=== PATIENT | female | born 1965 | race Caucasian/White ===

== ENCOUNTER → 2023-04-09 08:16 | Outpatient (BNVA) | payer OTHER, SELFPAY | PROVIDERS: PCP Nurse Practitioner Family; Visit Provider Physician Assistant Surgical ==

== ENCOUNTER 2023-06-10 09:58 | Outpatient (AMB) | payer OTHER, SELFPAY ==
--- NOTE | 2023-06-10 09:09 | A.OFFVIS_ITS ---
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 Her goal is to lose weight and achieve a healthy lifestyle as well as to improve, if not resolve, obesity related medical conditions, including rufus, htn, hld. She reports first being concerned about her weight 10-15 years, highest weight to date was 223, lowest was 145 w hypnosis and weight watchers. Weight upon first presentation to the office on 04/09/23 was 221 pounds with a BMI of 36.8. Current weight is 223.5 pounds with a BMI of 37.2. She has tried multiple m ethods of weight loss including fad diets, hypnosis without permanent results. She lives with her . 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 She wakes at:?630 am, and goes to bed at?10 pm. Dinner is at 530 pm. Breakfast: cheerios w 2 % milk, decaf tea w milk AM snack: skip Lunch: grilled chicken w salad on wrap, soup PM snack: benjamin chips, carrots, girl dairy cattle farmer cookies, dried cheerios Dinner: grilled chicken, potatoes, turkey, salad, veg, fish After dinner: skip Other snacks: paski, candy, yogurt, grapes Liquids: 40 oz water, no soda, OJ/cran/cran-grape Alcohol/marijuana/tobacco intake: no etoh, edible cannabis 1-2 x per week, no tobacco Exercise: pelaton bike at home, 2 x per week given recent plantar fasciitis. GERD score: 21 BAL score: 0 ESS score: 12 QOL score: 65 PFSH Surgical History S/P eye surgery S/P hysterectomy S/P section Review of Systems Const All systems reviewed & are unremarkable except as noted in HPI and below Assessment & Plan Assessment & Plan (1) Obesity (BMI 30-39.9): Code(s): E66.9 - Obesity, unspecified Plan: This is a?58 yo female who will start our SWL program to prepare for bariatric surgery.? Blood work, h pylori , CXR, ECG, Abd US and UGI have been ordered. She is being scheduled for RD and BH initial consultations. She will start SWL classes and watch the first three videos before her next appointment. ? Adequate sleep of 7-8 hours per night discussed, awakening at 630 am and going to bed around 10 pm ? Purchase body composition analyzer scale ([employer] recommended) and check weight weekly. The best time to do this is first thing in the morning after going to the bathroom. 1. Nutritional counseling: Be sure to careful read the number of scoops per shake Start with 2 Celebrate Rebuild shakes ([facility], [facility], [email or web address], [employer]), First shake (1.5 scoops in 12 oz unsweetened almond milk) at 730am-930am, Second shake (1 scoop in 10 oz unsweetened almond milk) at 1030am-1230pm 2 protein bars (Celebrate bars at [facility], [facility], [email or web address], [employer]) First bar at 130pm-330pm. Dinner at 530pm (8 forks of protein and 8 forks of salad/vegetables). Meal to include lean meat (beef, fish, pork, turkey, chicken), cooked vegetables or a salad with olive oil and/or fruits (berries, pears, apples, kiwi). Avoid salt, breads, potatoes, rice, pasta, desserts. Another bar at 7pm-9pm. Try to drink 64 oz of water daily and avoid soda and juices. ?2. Each shake would be drunk slowly, like coffee in a period of 2 hours. ?3. Cut each bar in 4 pieces and eat each piece in 30 min ?to make each bar last 2 hours. ?4. I emphasized the importance of measuring accurately the food portion and measure it carefully when serving the food on the plate ?5. The meal portions include 8 full-size forks of meat and 8 full-size forks of salad. You always eat the meat portion but you can replace up to half of the forks of salad/vegetables with rice, potatoes or pasta, or a fruit ?if you like. The less you do it the better weight loss will be. ?6. One full-size fork is what can be scooped on the fork without falling aside and not what can be bit with the fork. Use regular forks like those you find in a typical restaurant. ?7.? Please send me weight measurements as soon as possible and then once a week. Always include your diet and exercise plan. Alternatively come weekly at the office for weight checks and send me the measurements. ?8. Exercise counseling: Begin by watching a stretching for beginners video. Start slowly and begin to stretch your muscles. You should do this before and after each exercise session to prevent injury. Please use your Pelaton stationary bike that you have at home. You may use the fat burn or interval training program and try to achieve 300 calories burned or more per session 7 days per week. Goal of 2000 calories burned or more weekly. There are other exercises you can do using the treadmill, rowing machine or elliptical machine. So if you get access to those or join a gym, let me know and I can give you advice on those activities as well. Tracking calories is essential. 9. Alternatively start walking outside daily, tracking calories with a goal of 300 calories per day, daily. You can download the tonia [employer] which can track your time, distance and calories while walking outside. You press start in the tonia when you start and then stop when you are finished. 10.? It is important to communicate with me by text weekly 11. Please get labs, EKG and chest X-Ray within 1 week. 12. Discussed and answered all questions regarding?obtained consent to participate in the [place] [facility]?Registry. 13. Please follow the diet plan exactly, without any change. If you do not like something about the plan or you feel hungry, you need to communicate with me so I can help you revise the plan. You should not change the plan yourself. Text me at [phone] 14. Goal is to lose at least 12 pounds in the first month 15. Goal is to lose 10% of your weight before surgery, which is about 22 lbs. Ultimate weight goal: 201 lbs before surgery Patient is morbidly obese and is not considered stable at this time.?I spent a total of 70 minutes reviewing/updating records, examining the patient and counseling the patient on weight management as detailed above. Orders: Orders Insulin Today E66.9 - Obesity, unspecified, E78.00 - Pure hypercholesterolemia, unspecified, G47.33 - Obstructive sleep apnea (adult) (pediatric), I10 - Essential (primary) hypertension Hemoglobin A1c Today E66.9 - Obesity, unspecified, E78.00 - Pure hypercholesterolemia, unspecified, G47.33 - Obstructive sleep apnea (adult) (pediatric), I10 - Essential (primary) hypertension H Pylori Breath Test Today E66.9 - Obesity, unspecified, E78.00 - Pure hypercholesterolemia, unspecified, G47.33 - Obstructive sleep apnea (adult) (pediatric), I10 - Essential (primary) hypertension Lipid Panel Today E66.9 - Obesity, unspecified, E78.00 - Pure hypercholesterolemia, unspecified, G47.33 - Obstructive sleep apnea (adult) (pediatric), I10 - Essential (primary) hypertension IRON PROFILE Today E66.9 - Obesity, unspecified, E78.00 - Pure hypercholesterolemia, unspecified, G47.33 - Obstructive sleep apnea (adult) (pediatric), I10 - Essential (primary) hypertension Vitamin B12 and Folate Today E66.9 - Obesity, unspecified, E78.00 - Pure hypercholesterolemia, unspecified, G47.33 - Obstructive sleep apnea (adult) (pediatric), I10 - Essential (primary) hypertension Vitamin B1 Today E66.9 - Obesity, unspecified, E78.00 - Pure hypercholesterolemia, unspecified, G47.33 - Obstructive sleep apnea (adult) (pediatric), I10 - Essential (primary) hypertension TSH reflex Free T4 Today E66.9 - Obesity, unspecified, E78.00 - Pure hypercholesterolemia, unspecified, G47.33 - Obstructive sleep apnea (adult) (pediatric), I10 - Essential (primary) hypertension XR chest 2V Today E66.9 - Obesity, unspecified, E78.00 - Pure hypercholesterolemia, unspecified, G47.33 - Obstructive sleep apnea (adult) (pediatric), I10 - Essential (primary) hypertension ECG 12 lead EKG Today E66.9 - Obesity, unspecified, E78.00 - Pure hyp ercholesterolemia, unspecified, G47.33 - Obstructive sleep apnea (adult) (pediatric), I10 - Essential (primary) hypertension FL upper GI w air Today E66.9 - Obesity, unspecified, E78.00 - Pure hypercholesterolemia, unspecified, G47.33 - Obstructive sleep apnea (adult) (pediatric), I10 - Essential (primary) hypertension Complete Blood Count Auto Diff Today E66.9 - Obesity, unspecified, E78.00 - Pure hypercholesterolemia, unspecified, G47.33 - Obstructive sleep apnea (adult) (pediatric), I10 - Essential (primary) hypertension Comprehensive Met. Panel Today E66.9 - Obesity, unspecified, E78.00 - Pure hypercholesterolemia, unspecified, G47.33 - Obstructive sleep apnea (adult) (pediatric), I10 - Essential (primary) hypertension Zinc Today E66.9 - Obesity, unspecified, E78.00 - Pure hypercholesterolemia, unspecified, G47.33 - Obstructive sleep apnea (adult) (pediatric), I10 - Essential (primary) hypertension C Reactive Protein Today E66.9 - Obesity, unspecified, E78.00 - Pure hypercholesterolemia, unspecified, G47.33 - Obstructive sleep apnea (adult) (ped iatric), I10 - Essential (primary) hypertension Vitamin A Today E66.9 - Obesity, unspecified, E78.00 - Pure hypercholesterolemia, unspecified, G47.33 - Obstructive sleep apnea (adult) (pediatric), I10 - Essential (primary) hypertension Ferritin Today E66.9 - Obesity, unspecified, E78.00 - Pure hypercholesterolemia, unspecified, G47.33 - Obstructive sleep apnea (adult) (pediatric), I10 - Essential (primary) hypertension Vitamin D 25-OH Total Today E66.9 - Obesity, unspecified, E78.00 - Pure hypercholesterolemia, unspecified, G47.33 - Obstructive sleep apnea (adult) (pediatric), I10 - Essential (primary) hypertension US abdomen comp w elastography Today E66.9 - Obesity, unspecified, E78.00 - Pure hypercholesterolemia, unspecified, G47.33 - Obstructive sleep apnea (adult) (pediatric), I10 - Essential (primary) hypertension Referrals Nutrition/Dietitian Referral E66.9 - Obesity, unspecified, E78.00 - Pure hypercholesterolemia, unspecified, G47.33 - Obstructive sleep apnea (adult) (pediatric), I10 - Essential (primary) hypertension Behavioral Health Referral E66.9 - Obesity, unspecified, E78.00 - Pure hypercholesterolemia, unspecified, G47.33 - Obstructive sleep apnea (adult) (pediatric), I10 - Essential (primary) hypertension Telehealth Telehealth Location of provider rendering services: practice address Location of patient: address on file Patient Identification confirmed using: Name, : Yes Telehealth method: voice only Patient verbally consented to treatment: Yes Patient verbally consented to billing insurance company: Yes Patient informed of any privacy concerns related to visit: Yes Minutes spent on Phone/Video with Pt.: 55 Coding Level of Care Code New Pt Level 5 (46745) Diagnoses Obesity (BMI 30-39.9) E66.9 Time Spent (min) 70
[2023-06-10 09:12] VITALS: BMI 37.2
== END 2023-06-10 10:42 | disposition home or self-care (01) ==
LOC: HO.HBS 09:58
PROVIDERS: PCP Nurse Practitioner Family; Visit Provider Physician Assistant Surgical
DX: E66.9 Obesity, unspecified (principal); Z68.37 Body mass index [BMI] 37.0-37.9, adult
CPT/HCPCS: 99443

== ENCOUNTER → 2023-06-10 09:58 | Outpatient (BNVA) | payer OTHER, SELFPAY | PROVIDERS: PCP Nurse Practitioner Family; Visit Provider Physician Assistant Surgical | DX: E66.9 Obesity, unspecified (principal); G47.33 Obstructive sleep apnea (adult) (pediatric); I10 Essential (primary) hypertension; E78.00 Pure hypercholesterolemia, unspecified ==

== ENCOUNTER 2023-06-11 06:40 | Outpatient (REF) | payer OTHER, SELFPAY ==
--- NOTE | ~2023-06-11 | XR_ITS ---
EXAMINATION: XR CHEST 2 VIEWS CLINICAL INFORMATION: Obesity. COMPARISON: None. TECHNIQUE: Frontal and lateral views of the chest were obtained. FINDINGS: The heart, great vessels, pulmonary vasculature and mediastinum are normal. The lungs show no focal infiltrate, effusion or pneumothorax. There is no acute osseous abnormality. XR/XR chest 2V IMPRESSION: No active cardiopulmonary disease.
[2023-06-11 07:00] LABS: MANUAL DIFF FLAG NO
--- NOTE | 2023-06-11 07:38 | ECG_ITS ---
Test Reason : e66.9 Blood Pressure : / mmHG Vent. Rate : 074 BPM Atrial Rate : 074 BPM P-R Int : 140 ms QRS Dur : 076 ms QT Int : 376 ms P-R-T Axes : -05 -11 -07 degrees QTc Int : 417 ms Normal sinus rhythm cannot exclude old Inferior infarct , age undetermined Abnormal ECG No previous ECGs available Referred By: Gerber Lyman Electronically Signed By:ZOYA VALENTINE
[2023-06-11 07:40] LABS: Basophils Percent Auto 0.4 % (0-2); Eosinophils Absolute Auto 0.1 X10*3/uL (0.0-0.4); Eosinophils Percent Auto 1.9 % (0-4); Hematocrit 44.5 % (37.0-47.0); Hemoglobin 14.7 g/dl (12.0-16.0); Imm Gran Abs Auto 0.04 X10*3/uL (0.00-0.03); Imm Gran Pct Auto 0.6 % (0.0-0.4); Lymphocytes Absolute Auto 2.7 X10*3/uL (1.2-4.9); Lymphocytes Percent Auto 38.3 % (20-40); Mean Corpuscular Hemoglobin 29.6 pg (27.0-33.0); Mean Corpuscular Volume 89.5 fL (80.0-98.0); Mean Platelet Volume 9.5 fL (9.4-12.3); Monocytes Absolute Auto 0.6 X10*3/uL (0.1-1.2); Monocytes Percent Auto 8.5 % (2-11); Neutrophils Absolute Auto 3.5 x10*3/uL (2.0-8.3); Neutrophils Percent Auto 50.3 % (45-73); Platelet Count 300 X10*3/uL (160-400); Red Blood Count 4.97 X10*6/uL (4.20-5.50); Red Cell Distribution Width 12.5 % (11.0-16.0); White Blood Count 6.9 X10*3/uL (4.8-10.8)
[2023-06-11 07:54] LABS: Estimated Average Glucose 111 mg/dL; Hemoglobin A1c % 5.5 % (<6.0)
[2023-06-11 08:04] LABS: Alanine Aminotransferase 99 U/L (0-31); Albumin Level 4.4 g/dL (3.5-5.0); Alkaline Phosphatase 115 U/L (39-117); Anion Gap 11 (12-20); Aspartate Amino Transferase 40 U/L (5-31); Bilirubin Total 0.8 mg/dL (0.0-1.0); Blood Urea Nitrogen 24 mg/dL (9-16); C Reactive Protein 0.41 mg/dL (< or = 0.50); Carbon Dioxide 31 mmol/L (22-29); Chloride 104 mmol/L (96-108); Cholesterol 187 mg/dL (<200); Estimated Glomerular Filt Rate > 60; Glucose Random 96 mg/dL (60-115); HDL Cholesterol 56 mg/dL (>40); Iron 88 mcg/dL (30-160); LDL Cholesterol Calculated 106 mg/dL (<100); Percent Iron Saturation 30 % (15-50); Potassium 3.9 mmol/L (3.3-5.1); Sodium 142 mmol/L (135-145); Total Iron Binding Capacity 296 mcg/dL (228-428); Total Protein 6.9 g/dL (6.5-8.0); Triglycerides 129 mg/dL (<150); Unsaturated Iron Binding 208 ug/dL
[2023-06-11 08:24] LABS: Ferritin 80 ng/mL (10-250); Insulin 9 uU/mL (2-29); TSH reflex Free T4 1.94 uIU/mL (0.32-4.0); Vitamin D 25-OH Total 28.1 ng/mL (>30)
[2023-06-11 09:07] LABS: Folate 8.9 ng/mL (> or = 4.0)
[2023-06-11 16:02] LABS: Vitamin B12 389 pg/mL (200-900)
[2023-06-13 13:59] LABS: Zinc 78 mcg/dL (60-130)
[2023-06-16 14:59] LABS: Vitamin B1 13 nmol/L (8-30)
[2023-06-17 02:09] LABS: Vitamin A 70 mcg/dL (38-98)
== END 2023-06-11 06:41 | disposition home or self-care (01) ==
LOC: HO.XRAY 06:40
PROVIDERS: PCP Nurse Practitioner Family; Visit Provider Physician Assistant Surgical
DX: E66.9 Obesity, unspecified (principal); G47.33 Obstructive sleep apnea (adult) (pediatric); E78.00 Pure hypercholesterolemia, unspecified; I10 Essential (primary) hypertension
CPT/HCPCS: 36415; 71046; 80053; 80061; 82306; 82607; 82728; 82746; 83036; 83525; 83540; 84425; 84443; 84590; 84630; 85025; 86140; 93005

== ENCOUNTER → 2023-06-11 07:38 | Outpatient (BNV) | payer OTHER, SELFPAY | PROVIDERS: PCP Nurse Practitioner Family; Visit Provider Internal Medicine | DX: R94.31 Abnormal electrocardiogram [ECG] [EKG] (principal) | CPT/HCPCS: 93010 ==

== ENCOUNTER 2023-06-23 | Outpatient (REF) | payer OTHER, SELFPAY ==
[2023-06-29 14:28] LABS: H Pylori Breath Test Negative (Negative)
== END 2023-06-23 00:01 | disposition home or self-care (01) ==
LOC: HO.LNP
PROVIDERS: Visit Provider Physician Assistant Surgical
DX: E66.9 Obesity, unspecified (principal); I10 Essential (primary) hypertension
CPT/HCPCS: 83013

== ENCOUNTER 2023-06-23 08:24 | Outpatient (AMB) | payer OTHER, SELFPAY ==
--- NOTE | 2023-06-23 08:32 | MHC.AMNUTRGE ---
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 Exercise: has been intentionally limiting it since getting her EKG back abnormal. Is still going for gentle walks and trying to stay active Is getting a liver ultrasound through [facility] tomorrow . [facility] online classes: completed, scored well Dietary counseling reduction Who buys your food self Who prepares/cooks your food self Meal frequency regular: breakfast (cheerios w 2% milk; fruit), lunch (sandwich, natasha bread, deli meat low sodium, low salt lays chips), dinner (grilled chicken, fish, shrimp ) and snacks (fruit) Lifestyle Exercise Yes Food frequency Dairy: daily, Fruit: daily, Vegetables: daily, Grains/pasta/breads/cereal (carbs): daily, Meats/poultry/fish (protein): daily, Meat substitutes/nuts/seeds/legumes: daily, Water: daily, Soda: never, Juice: never and Coffee: several times weekly (decaf coffee, or decaf tea ) Diagnosis Nutrition problem #1 overweight/obesity As related to (etiology) #1 excess energy intake and physical inactivity As evidenced by (sign/symptom) #1 high BMI Monitoring/Goals Nutrition problem monitoring total energy intake, level of knowledge/skill, total PRO intake, total CHO intake and weight Outcome progress progressing Learning/Education Readiness to learn excellent Stages of change action Educational materials provided Yes Most Recent Diabetes Results: Cholesterol 187 mg/dL (<200) 06/11/23 HDL Cholesterol 56 mg/dL (>40) 06/11/23 Triglycerides 129 mg/dL (<150) 06/11/23 Creatinine 0.85 mg/dL (0.5-1.4) 06/11/23 Blood Urea Nitrogen 24 mg/dL (9-16) H 06/11/23 Sodium 142 mmol/L (135-145) 06/11/23 Potassium 3.9 mmol/L (3.3-5.1) 06/11/23 Chloride 104 mmol/L (96-108) 06/11/23 Carbon Dioxide 31 mmol/L (22-29) H 06/11/23 Calcium 10.0 mg/dL (8.4-10.2) 06/11/23 AST 40 U/L (5-31) H 06/11/23 ALT 99 U/L (0-31) H 06/11/23 Total Protein 6.9 g/dL (6.5-8.0) 06/11/23 Albumin 4.4 g/dL (3.5-5.0) 06/11/23 [facility] Surgical History S/P eye surgery S/P hysterectomy S/P section Assessment & Plan Assessment & Plan (1) Obesity (BMI 30-39.9): Code(s): E66.9 - Obesity, unspecified Plan Patient is cleared from a nutrition standpoint for bariatric surgery. Educational requirements have been completed. Reviewed vitamin supplementation and commitment to protein shake for several months post surgery. Encouraged communication with office as needed. recommend increase protein based on todays body composition reading She will discuss ultrasound at [facility] with PA and aspirin use post op. Coding Level of Care Code Nutr Indiv Intake (92190) Diagnoses Obesity (BMI 30-39.9) E66.9 Time Spent (min) 45
[2023-06-23 09:13] VITALS: BMI 35.4
== END 2023-06-23 09:16 | disposition home or self-care (01) ==
PROVIDERS: PCP Nurse Practitioner Family; Visit Provider Dietitian, Registered
DX: E66.9 Obesity, unspecified (principal)

== ENCOUNTER → 2023-06-23 08:24 | Outpatient (BNVA) | payer OTHER, SELFPAY | PROVIDERS: PCP Nurse Practitioner Family; Visit Provider Dietitian, Registered | DX: E66.9 Obesity, unspecified (principal); Z68.35 Body mass index [BMI] 35.0-35.9, adult; Z71.3 Dietary counseling and surveillance; Z11.0 Encounter for screening for intestinal infectious diseases | CPT/HCPCS: 97802; 99211 ==

== ENCOUNTER 2023-07-07 08:23 | Outpatient (AMB) | payer OTHER, SELFPAY ==
--- NOTE | 2023-07-07 08:25 | A.OFFVIS_ITS ---
Intake VS Expanded 07/07/23 08:32 BP 151/73 H Blood Pressure Location Rt brachial Blood Pressure Position Sitting Pulse 70 Pulse Source Pulse Oximeter Temp 96.6 F L Temperature Source Tympanic Pulse Oximetry 98 Oxygen Delivery Method Room Air Height 5 ft 5 in Weight 207 lb 12.8 oz BMI 34.6 Body Fat % 42.0 Body Fat Mass 87.4 Fat Free Mass 120.4 Visceral Fat Rating 12.0 Body Water % 41.1 Body Water Mass 85.4 Muscle Mass/Score 114.2 Basal Metabolic Rate/Score 1,661 Intake Visit Reasons: (OV) F/U SWL Provider Relations Rep Required: No Allergies environmental allergies Allergy (Verified 07/07/23 08:34) Nasal congestion Medication List - Last Reconciled 07/07/23 by YAYA Phan aspirin (Adult Aspirin Regimen) 81 mg PO DAILY atorvastatin 10 mg PO DAILY cholecalciferol (vitamin D3) 125 mcg PO DAILY 90 days cyanocobalamin (vitamin B-12) 500 mcg PO DAILY 90 days hydrochlorothiazide 25 mg PO DAILY omeprazole magnesium (Prilosec OTC) 20 mg PO DAILY HPI HPI Comments History of Present Illness Details The patient is a pleasant 58 year old female who returns to the clinic for pre-operative surgical weight loss management. They were last seen in the office on 06/10/2023 for her 1st visit, recorded weight at that time was 223. pounds, with a BMI of 37.2. Today's weight is 207.8 pounds and BMI is 34.6. There has been a weight loss of 13.2 pounds since initiating the surgical weight loss program on 04/09/23 with a total body weight loss of 5.9 %. Pre op work up completed as follows: SWL classes:? 11/19 BH appts: 07/14/23 ? ? RD appts: Cleared-06/23/2023 Labs: 06/11/2023-low D H. pylori: 06/23/2023-negative CXR: 06/11/2023-negative EK06/11/2023-can not exclude old infarct, stress test ordered 06/11/23 scheduled for 07/09/23 ABD U/S: 06/24/2023-fatty liver UGI: 08/08/23 The patient reports she is feeling well. The patient does have a body composition scale. They also have been communicating weekly. Current meal plan includes: 2 Celebrate Rebuild shakes ([facility] [email or web address], [employer]), First shake (1 scoop in 12 oz unsweetened almond milk) at 730am-930am, Second shake (1 scoop in 10 oz unsweetened almond milk) at 1030am-1230pm 2 protein bars (Celebrate bars at [facility] [email or web address], [employer]) First bar at 130pm-330pm. Dinner at 530pm (8 forks of protein and 8 forks of salad/vegetables). Another bar 7-9 pm Drinking 60-80 oz of water Current exercise plan includes: walking outside, 150-160 calories daily sit ups. waiting on pelaton until stress test results. [facility] Surgical History S/P eye surgery S/P hysterectomy S/P section Review of Systems Const All systems reviewed & are unremarkable except as noted in HPI and below Physical Exam Vital Signs: Last Vital Signs Temp 96.6 F L 07/07/23 08:32 Pulse 70 07/07/23 08:32 BP 151/73 H 07/07/23 08:32 Pulse Ox 98 07/07/23 08:32 Oxygen Delivery Method Room Air 07/07/23 08:32 BMI result Body Mass Index 34.6 Const General: healthy appearing and no acute distress Resp Effort & Inspection: normal respiratory effort Auscultation: clear to auscultation bilaterally Cardio Rate: regular rate Rhythm: regular rhythm GI Auscultation: normal bowel sounds Extrem General: Yes normal to inspection Assessment & Plan Assessment & Plan (1) Obesity (BMI 30-39.9): Code(s): E66.9 - Obesity, unspecified Plan: Overall, patient is doing quite well. We have already reduced her shake to 1 scoop each in the interim between her 1st appointment in today's appointment. We will continue to reduce it slightly by decreasing her evening bar by half. I have suggested that she increase her exercise to at least 200-150 calories per day while walking her dog. She is scheduled for a stress test due to the abnormal EKG and she is awaiting that to resume her Peloton bike at home. She will follow up with Dr. García and she was also made aware of her upcoming appointments. Coding Level of Care Code Est Pt Level 3 (37357) Diagnoses Obesity (BMI 30-39.9) E66.9
[2023-07-07 08:32] VITALS: BP 151/73; PULSE 70; TEMP 35.9; O2SAT 98; BMI 34.6
== END 2023-07-07 09:02 | disposition home or self-care (01) ==
PROVIDERS: PCP Nurse Practitioner Family; Visit Provider Physician Assistant Surgical
DX: E66.9 Obesity, unspecified (principal)
CPT/HCPCS: 99213

== ENCOUNTER → 2023-07-07 08:23 | Outpatient (BNVA) | payer OTHER, SELFPAY | PROVIDERS: PCP Nurse Practitioner Family; Visit Provider Physician Assistant Surgical ==

== ENCOUNTER 2023-07-09 07:53 | Outpatient (REF) | payer OTHER, SELFPAY ==
--- NOTE | ~2023-07-09 | US_ITS ---
EXAMINATION: US COMPLETE ABDOMEN WITH LIVER ELASTOGRAPHY CLINICAL INFORMATION: Obesity. COMPARISON: None available. TECHNIQUE: Real-time imaging of the abdominal viscera. Noninvasive ultrasound liver fibrosis assessment is performed using Rafat ElastPQ point quantification shear wave elastography (2D-SWE) with a C5-2 MHz transducer. Multiple elastography samples are obtained. FINDINGS: PANCREAS: Normal. The visualized pancreatic head and body are normal in appearance. The remainder of the pancreas is obscured from visualization by the overlying bowel gas. ABDOMINAL AORTA: The proximal, middle, and distal aortic segments are normal in caliber. INFERIOR VENA CAVA: Visualized portions are normal. LIVER: There are benign, calcified granulomas, one of the largest in the left lobe measuring 5 mm. The liver demonstrates normal contour and echogenicity. No focal mass lesion or intrahepatic biliary duct dilatation. The right lobe measures 17.5 cm in length. The left lobe measures 9.7 cm in length. Portal flow is towards the liver (hepatopetal). Shear wave liver elastography median stiffness is 1 m/s (reference: normal median stiffness is 1.3 m/s or less). IQR/median stiffness to assess sampling precision is 0.19 (reference: good quality data set is IQR/median stiffness of 0.15 or less). GALLBLADDER: Normal. The gallbladder is physiologically distended without evidence of stones, sludge, polyps, wall thickening or pericholecystic fluid. COMMON BILE DUCT: Normal in caliber measuring 0.3 cm in diameter. RIGHT KIDNEY: There are multiple benign, simple parapelvic cysts, the largest at the interpolar aspect measuring 1.5 cm. These require no imaging follow-up. No hydronephrosis. No renal calculi or focal parenchymal lesions. The kidney measures 9.5 cm in maximum dimension. LEFT KIDNEY: There are multiple benign, simple parapelvic cysts, the largest at the interpolar aspect measuring 1.5 cm. These require no imaging follow-up. No hydronephrosis. No renal calculi or focal parenchymal lesions. The kidney measures cm in maximum dimension. SPLEEN: There are benign, calcified granulomas. The spleen measures 9.9 cm in maximum dimension. FREE FLUID: None. US/US abdomen comp w elastography IMPRESSION: 1. There is borderline hepatomegaly. 2. Liver elastography: Although measurements appear to rule out compensated advanced chronic liver disease, there is statistical variability of the sampling which decreases accuracy. REFERENCE: Society of Radiologists in Ultrasound Liver Stiffness Thresholds (2020): LIVER STIFFNESS THRESHOLDS: *Liver Stiffness equal or less than 1.3 m/s: High probability of being normal. *Liver Stiffness less than 1.7 m/s: In the absence of other known clinical signs, rules out compensated advanced chronic liver disease. *Liver Stiffness 1.7-2.1 m/s: Suggestive of compensated advanced chronic liver disease but need further test for confirmation. *Liver Stiffness over 2.1 m/s: Rules in compensated advanced chronic liver disease. *Liver Stiffness over 2.4 m/s: Suggestive of clinically significant portal hypertension. QUALITY OF DATA SET: *IQR/Median value equal or less than 0.15 implies a quality data set. *IQR/Median value over 0.15 implies a poor quality data set. SIGNIFICANT CHANGE FROM PRIOR EXAM: Significant change if liver stiffness measurement is 10% or greater from prior exam. OTHER CONSIDERATIONS: The stage of liver fibrosis may be overestimated in the setting of acute hepatitis, liver inflammation, elevated liver function tests, hepatic vascular congestion, obstructive cholestasis, non-fasting state, and infiltrative diseases such as amyloidosis and lymphoma. In some patients with NAFLD, the liver stiffness thresholds for compensated advanced chronic liver disease may be lower. In causes other than viral hepatitis and NAFLD, liver stiffness thresholds are not well established.
--- NOTE | 2023-07-09 08:37 | CA_ITS ---
Acquisition Time: 2023-07-09 08:59:33 Total Exercise Time: 00:06:32 Test Indications: ABN EKG Medications: SEE H Protocol: SHARLENE Max HR: 166 BPM 102% of Pred: 162 BPM Max BP: 170/078 mmHG Max Work Load: 7.8 METS . Exercise stress test exercise 6 min 32 sec of Sharlene protocol achieving 101% MPHR, with mild SOB, no chest discomfort, without arrhythmias, with normotensive response exercise, without EKG changes. Text reviewed with Dr. Frank. Referred By: Gerber Lyman Overread By: Nilam Retana
== END 2023-07-09 07:54 | disposition home or self-care (01) ==
LOC: HO.US 07:53
PROVIDERS: PCP Nurse Practitioner Family; Visit Provider Physician Assistant Surgical
DX: E66.9 Obesity, unspecified (principal); R94.31 Abnormal electrocardiogram [ECG] [EKG]; E78.00 Pure hypercholesterolemia, unspecified; I10 Essential (primary) hypertension; G47.33 Obstructive sleep apnea (adult) (pediatric)
CPT/HCPCS: 76700; 76981; 93017

== ENCOUNTER → 2023-07-09 08:37 | Outpatient (BNV) | payer OTHER, SELFPAY | PROVIDERS: PCP Nurse Practitioner Family; Visit Provider Nurse Practitioner | DX: R94.31 Abnormal electrocardiogram [ECG] [EKG] (principal); R06.02 Shortness of breath | CPT/HCPCS: 93016; 93018 ==

== ENCOUNTER 2023-07-14 08:37 | Outpatient (AMB) | payer OTHER, SELFPAY ==
--- NOTE | 2023-07-14 08:30 | A.OFFWM_ITS ---
Intake Intake Visit Reasons: (TV) BH Intake Allergies environmental allergies Allergy (Verified 07/07/23 08:34) Nasal congestion PFSH Surgical History S/P eye surgery S/P hysterectomy S/P section Behavioral Health Assessment Weight Management Therapy Therapy Notes Details Pt is looking to have weight loss surgery to help improve her health and quality of life. She denied any mental health history, she has never been in therapy, and has never had any problems with drugs or alcohol. Pt stated that she has even stopped social drinking as well. Presenting Concerns Referral Source provider Reason for referral weight loss surgery evaluation Precipitating Event obesity Living Situation Current Living Situation Own At risk of losing current housing? No Satisfied with current living situation? Yes Comments Patient lives with her . She has four adult children and 6 grandchildren that all live out of the house. Food/Weight/Diet Expectations of change weight loss and maintenance History/Relationship with food Pt stated that she would sit all day at work and then have a sandwich for lunch. Pt stated that most of her social outings were related to food and going out to eat. History/Relationship with weight Weight fluctuations for several years. She would loose 10lbs and then get discouraged. She stated that she is at her heaviest when she started this program. History/Relationship with dieting WW, hypnosis, low carb, Binge Eating Do you frequently eat large amounts of food in short periods of time, not feeling physically hungry? Yes Do you feel out of control when you eat a large amount of food in a short period of time? No Do you eat large amounts of food rapidly and typically alone? Yes Night Eating Do you wake up at least once during the night to eat? No If you wake up in the night, do you find that it is necessary to eat something in order to fall back asleep? No Do you have little or no appetite in the morning and feel very hungry in the evening, often overeating between dinner and when you go to bed? No Social History Family history and relationship She reported growing up in [place] and lives in [facility]. Her mother lives in [place] and her father recently from Alzheimer's. Pt is and has four adult children and 6 grandchildren. One lives down [facility], and the other three live throughout [place]. She lives alone with her . Parental/Familial engine assembler obligations none Developmental history and status no issues known Social support , friends, family Cultural/Ethnic information Legal Involvement and History Current or historical involvement with the legal system? no legal issues reported Education Preferred learning style Auditory, Verbal, Written, Learn by doing and Visual Currently enrolled in educational program? No Interested in further educational program? 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 Employment Employment Status [employer] Wants help to find employment? No Meaningful activities traveling, spending time with her grandchildren, walking, yoga, theater Financial Situation Describe current financial situation Comfortable Financial assistance? None Service Service? No Mental Health and Addiction Treatment Current/Past substance abuse? No Current/Past addictive behavior concerns? No Medical and Physical Health Summary Physical exam in the last year? Yes Pain Screening Current pain? Yes Pain in the last few months? No Medications Is the patient compliant with medications? Yes Does the patient have Brown Guardian in place? Not applicable Does the patient use complimentary health approaches? No Trauma/Abuse History History of trauma? No Questionnaires PHQ-9 Over the last 2 weeks, how often have you been bothered by any of the following problems? 1. Little interest or pleasure in doing things: not at all 2. Feeling down, depressed, or hopeless: not at all 3. Trouble falling or staying asleep, or sleeping too much: several days 4. Feeling tired or having little energy: several days 5. Poor appetite or overeating: several days 6. Feeling bad about yourself - or that you are a failure or have let yourself or your family down: not at all 7. Trouble concentrating on things, such as reading the newspaper or watching television: several days 8. Moving or speaking so slowly that other people could have noticed. Or the opposite - being so fidgety or restless that you have been moving around a lot more than usual: several days 9. Thoughts that you would be better off or of hurting yourself in some way: not at all Total score: 5 Source: Developed by Drs. Taurus Benjamin, Pamela Shelton, Jim Chery and colleagues, with an educational talia from [employer]. Binge Eating Scale Group 1 A. I don't feel self-conscious about my wt. or body size when I'm with others. B. I feel concerned about how I look to others, but it normally does not make me fell disappointed with myself C. I do get self-conscious about my appearance and wt. which makes me feel disappointed in myself. D. I feel very self-conscious about my wt. and frequently I feel intense shame and disgust for myself. I try to avoid social contacts because of my self- consciousness. Response Group 1: C Group 2 A. I don't have any difficulty eating slowly in the proper manner. B. Although I seem to gobble down foods, I don't end up feeling stuffed because of eating to much. C. At times, I tend to eat quickly and then, I feel uncomfortably full afterwards. D. I have the habit of bolting down my food, without really chewing it. When this happens I usually feel uncomfortably stuffed because I've eaten to much. Response Group 2: C Group 3 A. I feel capable to control my eating urges when I want to. B. I feel like I have failed to control my eating more than the average person. C. I feel utterly helpless when it comes to feeling in control of my eating urges. D. Because I feel so helpless about controlling my eating I have become very desperate about trying to get control. Response Group 3: B Group 4 A. I don't have the habit of eating when I'm bored. B. I sometimes eat when I'm bored, but often I'm able to get busy and get my mind off food. C. I have a regular habit of eating when I'm bored, but occasionally, I can use some other activity to get my mind off eating. D. I have a strong habit of eating when I'm bored. Nothing seems to help me breath the habit. Response Group 4: C Group 5 A. I'm usually physically hungry when I eat something. B. Occasionally, I eat something on impulse even though I really am not hungry. C. I have the regular habit of eating foods, that I might not really enjoy, to satisfy a hungry feeling even though physically, I don't need the food. D. Although I'm not physically hungry, I get a hungry feeling in my mouth that only seems to be satisfied when I eat a food, like sandwich, that fills my mouth. Sometimes, when I eat the food to satisfy my mouth hunger, I then spit the food out so I won't gain weight. Response Group 5: D Group 6 A. I don't feel any guilt or self-hate after I overeat. B. After I overeat, occasionally I feel guilt or self-hate. C. Almost all the time I experience strong guilt or self-hate after I overeat. Response Group 6: B Group 7 A. I don't lose total control of my eating when dieting even after periods when I overeat. B. Sometimes when I eat a forbidden food on a diet, I feel like I blew it and eat even more. C. Frequently, I have the habit of saying to myself, I've blown it now, why not go all the way, when I overeat on a diet. When that happens I eat more. D. I have a regular habit of starting a strict diets for myself but I break the diets by going on an eating binge. My life seems to be either a feast or famine. Response Group 7: B Group 8 A. I rarely eat so much food that I feel uncomfortably stuffed afterwards. B. Usually about once a month, I each such a quantity of food, I end up feeling very stuffed. C. I have regular periods during the month when I eat large amounts of food, either at mealtime or at snacks. D. I eat so much food that I regularly feel quite uncomfortable after eating and sometimes a bit nauseous. Response Group 8: C Group 9 A. My level of calorie intake does not go up very high or go down very low on a regular basis. B. Sometimes after I overeat, I will try to reduce my caloric intake to almost nothing to compensate for the excess calories I've eaten. C. I have a regular habit of overeating during the night. It seems that my routine is not to be hungry in the morning but overeat in the evening. D. In my adult years, I have had week-long periods where I practically starve myself. This follows periods when I overeat. It seems I live a life of either feast or famine. Response Group 9: C Group 10 A. I usually am able to stop eating when I want to. I know when enough is enough. B. Every so often, I experience a compulsion to eat which I can't seem to control. C. Frequently, I experience strong urges to eat which I seem unable to control, but at other times I can control my eating urges. D. I feel incapable of controlling urges to eat. I have a fear of not being able to stop eating voluntarily. Response Group 10: C Group 11 A. I don't have any problem stopping eating when I feel full. B. I usually can stop eating when I feel full but occasionally overeat leaving me feeling uncomfortably stuffed. C. I have a problem stopping eating once I start and usually I feel uncomfortably stuffed after I eat a meal. D. Because I have a problem not being able to stop eating when I want, I sometimes have to induce vomiting to relieve my stuffed feeling. Response Group 11: B Group 12 A. I seem to eat just as much when I'm with others, Family social gatherings as when I'm by myself. B. Sometimes, when I'm with other persons, I don't eat as much as I want to eat because I'm self-conscious about my eating. C. Frequently, I eat only a small amount of food when others are present, because I'm very embarrassed about my eating. D. I feel so ashamed about overeating that I pick times to overeat when I know no one will see me. I feel like a closet eater. Response Group 12: B Group 13 A. I eat three meals a day with only an occasional between meal snack. B. I eat 3 meals a day, but I also normally snack between meals. C. When I am snacking heavily, I get in the habit of skipping regular meals. D. There are regular periods when I seem to be continually eating, with no planned meals. Response Group 13: C Group 14 A. I don't think much about trying to control unwanted eating urges. B. At least some of the time, I feel my thoughts are pre-occupied with trying to control my eating urges. C. I feel that frequently I spend much time thinking about how much I ate or about trying not to eat anymore. D. It seems to me that most of my waking hours are pre-occupied by thoughts about eating or not eating. I feel like I'm constantly struggling not to eat. Response Group 14: C Group 15 A. I don't think about food a great deal. B. I have strong craving for food but they last only for brief periods of time. C. I have days when I can't seem to think about anything else but food. D. Most of my days seem to be pre-occupied with thoughts about food. I feel like I live to eat. Response Group 15: C Group 16 A. I usually know whether or not I'm physically hungry. I take the right portion of food to satisfy me. B. Occasionally, I feel uncertain about knowing whether or not I'm physically hungry. A these times it's hard to know how much food I should take to satisfy me. C. Even though I might know how many calories I should eat, I don't have any idea what is a normal amount of food for me. Response Group 16: C Binge Eating Score: 28 Score less than 17 Minimal Risk Score between 18-26 Moderate Risk Score between 27-46 High Risk Assessment & Plan Assessment & Plan (1) Adjustment disorder, unspecified: Code(s): F43.20 - Adjustment disorder, unspecified (2) Obesity (BMI 30-39.9): Code(s): E66.9 - Obesity, unspecified (3) SPARKLE (obstructive sleep apnea): Code(s): G47.33 - Obstructive sleep apnea (adult) (pediatric) Plan Patient is doing well, she has no mental health history or other serious barriers. She is cleared for surgery when ready. Telehealth Telehealth Location of provider rendering services: other Location of patient: address on file Patient Identification confirmed using: Name, : Yes Telehealth method: voice only Patient verbally consented to treatment: Yes Patient verbally consented to billing insurance company: Yes Patient informed of any privacy concerns related to visit: Yes Minutes spent on Phone/Video with Pt.: 45 Coding Level of Care Code Tele Psy Diag Eval (71804) Diagnoses Adjustment disorder, unspecified F43.20 Obesity (BMI 30-39.9) E66.9 SPARKLE (obstructive sleep apnea) G47.33 Time Spent (min) 45
== END 2023-07-14 09:12 | disposition home or self-care (01) ==
LOC: HO.HBST 08:37
PROVIDERS: PCP Nurse Practitioner Family; Visit Provider Counselor Mental Health
DX: F43.20 Adjustment disorder, unspecified (principal); E66.9 Obesity, unspecified; G47.33 Obstructive sleep apnea (adult) (pediatric)
CPT/HCPCS: 90791

== ENCOUNTER → 2023-07-14 08:37 | Outpatient (BNVA) | payer OTHER, SELFPAY | PROVIDERS: PCP Nurse Practitioner Family; Visit Provider Counselor Mental Health ==

== ENCOUNTER → 2023-07-28 09:00 | Outpatient (BNVA) | payer OTHER, SELFPAY | PROVIDERS: PCP Nurse Practitioner Family; Visit Provider Surgery ==

== ENCOUNTER 2023-08-08 08:21 | Outpatient (REF) | payer OTHER, SELFPAY ==
--- NOTE | ~2023-08-08 | FL_ITS ---
EXAMINATION: XR FLUOROSCOPY UPPER GI WITH AIR CLINICAL INFORMATION: Preop evaluation prior to bariatric surgery COMPARISON: None TECHNIQUE: Fluoroscopic air contrast upper GI examination was performed utilizing standard techniques with thin and thick barium and effervescent granules. Numerous spot images were obtained. FINDINGS: Images of the oropharynx and hypopharynx demonstrate normal swallow mechanism with normal epiglottic inversion and soft palate elevation. No tracheal penetration, glottic or subglottic aspiration identified. No nasopharyngeal reflux present. Hypopharyngeal structures appear normal without evidence of mass or diverticulum. There is mild cricopharyngeal achalasia present. Dual and single contrast images of the esophagus demonstrate mildly patulous caliber, and normal contour. There is a granular appearance of the esophageal mucosa that may represent reflux esophagitis. There is no evidence of mass, stricture, or large ulcerations. A Schatzki's ring is present, resulting in mild narrowing of the GE junction. Esophageal peristalsis is mildly disorganized. A moderate-sized type I hiatal hernia is present. Significant gastroesophageal reflux present up to the thoracic inlet. Dual contrast and single contrast images of the stomach demonstrated a normal contour. There is suboptimal coating of the superior wall. The gastric rugal folds are mildly thickened. No masses or ulcerations are seen. Contrast freely passed into the gastric antrum and duodenal bulb without delay. Single and air-contrast images of the duodenal bulb demonstrate no abnormality. The duodenal sweep has a normal appearance, course, and mucosal fold appearance. No malrotation. The imaged proximal jejunum has a normal fold pattern and caliber. FLUOROSCOPY TIME: 2 minutes 55 seconds Number of Spot Images: 13 Number of Cine: 8 DOSE AREA PRODUCT: 2022 uGy-m2 (microgray-meter squared) FL/FL upper GI w air IMPRESSION: 1. Mild cricopharyngeal achalasia. 2. Granular appearance of the esophageal mucosa suggesting reflux esophagitis. Mid and distal esophagus are mildly patulous. 3. Schatzki's ring is present, mildly narrowing the GE junction. 4. Mildly disordered esophageal peristalsis. 5. Moderate-sized type I hiatal hernia. 6. Severe gastroesophageal reflux. 7. Mildly thickened gastric rugal folds that likely represents gastritis. Poor coating of the superior wall and greater curvature mildly limits the evaluation. This procedure was performed by Landon Reid PA-C, and supervised by Dr. Retana
== END 2023-08-08 08:22 | disposition home or self-care (01) ==
LOC: HO.XRAY 08:21
PROVIDERS: PCP Nurse Practitioner Family; Visit Provider Physician Assistant Surgical
DX: E66.9 Obesity, unspecified (principal); I10 Essential (primary) hypertension; E78.00 Pure hypercholesterolemia, unspecified
CPT/HCPCS: 74246

== ENCOUNTER → 2023-08-08 08:22 | Outpatient (BNV) | payer OTHER, SELFPAY | PROVIDERS: PCP Nurse Practitioner Family; Visit Provider Physician Assistant Surgical | DX: K22.0 Achalasia of cardia (principal); K21.00 Gastro-esophageal reflux disease with esophagitis, without bleeding; K22.2 Esophageal obstruction | CPT/HCPCS: 74246 ==

== ENCOUNTER 2023-08-14 08:07 | Outpatient (AMB) | payer OTHER, SELFPAY ==
--- OUTSIDE RECORDS SUMMARY | 2023-08-14 08:20 | XMS_ITS | Continuity of Care Document ---
Author Organization [facility] Address [address] [place] [address]- Care Team Providers Care Projector Operator Name Role Phone Ash KAYAKING INSTRUCTOR, Michelle Briseno Primary Care Physician Encounter [facility] Date(s): 06/14/23 - 07/14/23 [facility] [address] [place] [address]- [place] Allergies, Adverse Reactions, Alerts No Known Medication Allergies Substance Reaction Severity Status Other Environmental Allergy pollen Intermittent Active Immunizations Given and Recorded Vaccine Date Status Refusal Reason influenza virus vaccine, inactivated 12/23/22 Eliot rded influenza virus vaccine, inactivated 12/31/21 Eliot rded influenza virus vaccine, inactivated 01/02/21 Eliot rded influenza virus vaccine, inactivated 02/04/19 Eliot rded influenza virus vaccine, inactivated 02/05/18 Eliot rded influenza virus vaccine, inactivated 01/30/17 Eliot rded influenza virus vaccine, inactivated 02/22/15 Give n influenza virus vaccine, inactivated 12/29/08 Give n [id number] 12y+ bivalent booster vax 12/31/21 Recorded SARS-CoV-2 mRNA (szbvwul-pzet-bqezl) vax 09/11/21 Recorded SARS-CoV-2 (COVID-19) mRNA BNT-162b2 vac 01/09/21 Recorded SARS-CoV-2 (COVID-19) mRNA BNT-162b2 vac 06/24/20 Recorded SARS-CoV-2 (COVID-19) mRNA BNT-162b2 vac 06/04/20 Recorded zoster vaccine, inactivated 09/15/20 Recorded zoster vaccine, inactivated 05/03/20 Recorded Influenza Virus Vaccine (oldterm) 01/13/20 Recorde d pneumococcal 23-valent vaccine 1 07/19/14 Given Influenza Vaccine (oldterm) 2 03/18/12 Given Influenza Inactive (IM) (oldterm) 3 05/15/11 Given tetanus/diphtheria/pertussis, acel(Tdap) 4 05/15/11 Given Hepatitis B Vaccine (old term) 09/21/07 Given Hepatitis A Vaccine (oldterm) 09/21/07 Given 1Early/Late Reason: Wan to Standard Admin Times 2Admin Note: VIS SHEET GIVEN 3Admin Note: 10/17/10 vis sheet given 4Admin Note: 03/01/08 vis sheet given Medications aspirin 81 mg oral tablet, chewable = 81 mg, By Mouth, Daily, 0 Refills, Maintenance, 07/19/14 12:23:35, Chew Tablet Start Date: 07/19/14 Status: Ordered atorvastatin 10 mg oral tablet 1 tablet, By Mouth, Daily in PM, # 90 tablet, 1 Refills, Maintenance, 04/11/23 16:19:00 EST, [id number], 165, cm, 04/11/23 15:42:00 EST, Height Start Date: 04/11/23 Status: Ordered azelastine nasal 0.15% spray 2 sprays, Nares, Both, 2 times a day, PRN for allergy symptoms, # 30 mL, 2 Refills, Maintenance, 02/01/21 14:05:00 EDT, [place] [address], [id number], Partial fill upon patient request if the prescription is for a schedule II opioid drug., 2 sprays Nares,... Start Date: 02/01/21 Status: Ordered Home Blood Pressure Monitor See Instructions, # 1 each, Maintenance, Check BP daily. 1-2 hours after taking medication. Call if>140/90., 12/31/22 16:29:00 EDT, Supply, 165, cm, 12/31/22 16:04:00 EDT, Height Start Date: 12/31/22 Status: Ordered hydrochlorothiazide 25 mg oral tablet 25 mg, 1, tablet, By Mouth, Daily, # 90 tablet, Refills 1, Tot. Refills 1, Maintenance, 04/11/23 16:18:00 EST, Route to Pharmacy Electronically, [id number], Partial fill upon patient request if the prescription is for a schedule II opioid drug... Start Date: 04/11/23 Stop Date: 10/08/23 Status: Ordered MiraLax = 17 Gm, By Mouth, Daily, 0 Refills, Maintenance, 07/31/18 7:25:44 EDT Start Date: 07/31/18 Status: Ordered Multivitamin By Mouth, Daily, 0 Refills, Maintenance, 03/03/14 14:13:28 Start Date: 03/03/14 Status: Ordered Prilosec OTC = 20 mg, By Mouth, Daily, 0 Refills, Maintenance, 10/30/20 8:26:00 EDT, Partial fill upon patient request if the prescription is for a schedule II opioid drug. Start Date: 10/30/20 Status: Ordered scopolamine 1 mg/72 hr transdermal film, extended release 1 patch, Ear, Right, Every 72 hours, PRN Motion Sickness, # 4 patch, 0 Refills, Maintenance, 04/11/23 16:20:00 EST, [id number], Partial fill upon patient request if the prescription is for a schedule II opioid drug., 1 patch Ear, Right Every 7... Start Date: 04/11/23 Status: Ordered tretinoin 0.025% topical cream 0 Refills, Maintenance, 06/06/23 8:41:00 EST, Partial fill upon patient request if the prescriptionis for a schedule II opioid drug. Start Date: 06/06/23 Status: Ordered Problem List Condition Confirmation Course Effective Dates Status H ealth Status Informant Allergic rhinitis Confirmed Active Family history of breast cancer Confirmed Active Hyperlipidemia Confirmed Active HTN (hypertension) Confirmed Active Cerumen impaction Confirmed Active Lobular carcinoma in situ (LCIS) of right breast, 2022 Confirmed Active Dense breast tissue on mammogram Confirmed Active Migraine Confirmed Active NAFLD (nonalcoholic fatty liver disease) Confirmed Active Obesity Confirmed Active Paroxysmal atrial fibrillation Confirmed Active Severe obesity (BMI 35.0-39.9) with comorbidity Confirmed Active Solitary Cyst of Breast right breat at 7:00 Confirmed 01/16/10 Active Vitamin D deficiency Confirmed Active Social History Social History Type Response Smoking Status Never (less than 100 in lifetime) entered on: 04/22/22 Sex Patient Care team information Care Team Personnel Name: Ash PARHAM, Michelle Briseno Position: S PCO Associate Professional Member Role: PCP Address: Address: [address] [place] [address]- Care Team Related Persons Name: DOMINIQUE VILLALPANDO Address: home [address] [place] [address]
--- OUTSIDE RECORDS SUMMARY | 2023-08-14 08:20 | XMS_ITS | Continuity of Care Document ---
Author Organization [facility] Address [address] [place] [address]- Care Team Providers Care Leather Production Worker Name Role Phone Ash PARHAM, Michelle Briseno Primary Care Physician [place] [facility] [place]23 - 08/09/23 [facility] [address] [place] [address]- Attending Physician: Peter BLANCO, Nisha Figueredo Admitting Physician: Peter BLANCO, Nisha Figueredo Referring Physician: Michelle Aleman NP Allergies, Adverse Reactions, Alerts No Known Medication [...] influenza virus vaccine, inactivated 12/29/08 Give n [id number] 12y+ bivalent booster vax 12/31/21 Recorded SARS-CoV-2 mRNA (npfdkzs-vbwy-awuwv) vax 09/11/21 Recorded SARS-CoV-2 (COVID-19) mRNA BNT-162b2 [...] mL, 2 Refills, Maintenance, 02/01/21 14:05:00 EDT, [employer] [place], [id number], Partial fill upon patient request [...] Care team information Care Team Personnel Name: Michelle Aleman NP Position: S PCO Associate Professional Member Role: PCP Address: Address: [address] [place] [address]- Care Team Related Persons Name: DOMINIQUE VILLALPANDO Address: home [address] [place] [address]
--- OUTSIDE RECORDS SUMMARY | 2023-08-14 08:20 | XMS_ITS | Continuity of Care Document ---
Author Organization [facility] Address [address] [place] [address]- Care Team Providers Care Media Relations Specialist Name Role Phone Ash PARHAM, Michelle M Primary Care Physician [place] [facility] [place] 03[place]/22 [facility] [address] [place] [address]- Attending Physician: Presley Priest Admitting Physician: Presley Priest Referring Physician: AdmtrPresley Allergies, Adverse Reactions, Alerts No Known Medication Allergies Substance Reaction Severity Status Other Environmental Allergy pollen Intermittent Active Immunizations Given and Recorded Vaccine Date Status Refusal Reason Influenza Virus Vaccine (oldterm) 01/13/20 Recorde d influenza virus vaccine, inactivated 02/22/15 Give n influenza virus vaccine, inactivated 12/29/08 Give n pneumococcal 23-valent vaccine 1 07/19/14 Given Influenza Vaccine (oldterm) 2 03/18/12 Given Influenza Inactive (IM) (oldterm) 3 05/15/11 Given tetanus/diphtheria/pertussis, acel(Tdap) 4 05/15/11 Given Hepatitis B Vaccine (old term) 09/21/07 Given Hepatitis A Vaccine (oldterm) 09/21/07 Given 1Early/Late Reason: Wan to Standard Admin Times 2Admin Note: [id number] VIS SHEET GIVEN 3Admin Note: 10/17/10 vis sheet given 4Admin Note: 03/01/08 vis sheet given Medications aspirin 81 mg oral tablet, chewable = 81 mg, By Mouth, Daily, 0 Refills, Maintenance, 07/19/14 12:23:35, Chew Tablet Start Date: 07/19/14 Status: Ordered azelastine nasal 0.15% spray 2 sprays, Nares, Both, 2 times a day, PRN for allergy symptoms, # 30 mL, 2 Refills, Maintenance, 02/01/21 14:05:00 EDT, [place], [id number], Partial fill upon patient request if the prescription is for a schedule II opioid drug., 2 sprays Nares,... Start Date: 02/01/21 Status: Ordered MiraLax = 17 Gm, By [...] opioid drug. Start Date: 10/30/20 Status: Ordered Transderm-Scop 1 mg/72 hr transdermal film, extended release 1 film, Topically, Every 72 hours, # 4 each, 0 Refills, Maintenance, 03/26/22 7:16:00 EST, [id number], Partial fill upon patient request if the prescription is for a schedule II opioid drug.,1 film Topically Every 72 hours, 165, cm, 03/26/22... Start Date: 03/26/22 Status: Ordered Problem List Condition Confirmation Course Effective Dates Status H ealth Status Informant Allergic rhinitis Confirmed Active Family history of breast cancer Confirmed Active Hyperlipidemia Confirmed Active Cerumen impaction Confirmed Active Lump or Mass in Breast, right breast near axilla Confirmed 01/16/10 Active Migraine Confirmed Active NAFLD (nonalcoholic fatty liver disease) Confirmed Active Obese class I Confirmed Active Obesity Confirmed Active Paroxysmal atrial fibrillation Confirmed Active Solitary Cyst of Breast right breat at 7:00 Confirmed 01/16/10 Active Vitamin D deficiency Confirmed Active Social History Social History Type Response Smoking Status Never (less than 100 in lifetime); Tobacco user in household: No entered on: 07/31/18 Sex Patient Care team information Care Team Personnel Name: Ash PARHAM, Michelle Briseno Position: S PCO Associate Professional Member Role: PCP Address: Address: [address] [place] [address]- Care Team Related Persons Name: DOMINIQUE VILLALPANDO Address: home [address] [place] [address]
--- OUTSIDE RECORDS SUMMARY | 2023-08-14 08:20 | XMS_ITS | Continuity of Care Document ---
Author Organization [facility] Address [address] [place] [address]- Care Team Providers Care Grade Recorder Name Role Phone Ash PRAHAM, Michelle M Primary Care Physician En[place] [facility] [place] Date(s): 03/01/21 - 06/09/21 [facility] [address] [place] [address]- Attending Physician: Peter BLANCO, Nisha Figueredo Admitting Physician: Peter BLANCO, Nisha Figueredo Referring Physician: Marian PARHAM, Oralia Hdez Allergies, Adverse Reactions, Alerts No Known Medication [...] Wan to Standard Admin Times 2Admin Note: [id number] VIS SHEET GIVEN 3Admin Note: 10/17/10 vis [...] mL, 2 Refills, Maintenance, 02/01/21 14:05:00 EDT, [place], [id number], Partial fill upon patient request if the prescription is for a schedule II opioid drug., 2 sprays Nares,... Start Date: 02/01/21 Status: Ordered Claritin 10 mg oral tablet 10 mg, 1, tablet, By Mouth, Daily, # 14 tablet, Refills 0, Tot. Refills 0, Maintenance, 05/06/18 12:02:04 EST, Route to Pharmacy Electronically, [id number], [facility]acy #[id number] Start Date: 05/06/18 Stop Date: 05/20/18 Status: Ordered MiraLax = 17 Gm, By [...] opioid drug. Start Date: 10/30/20 Status: Ordered Problem List Condition Effective Dates Status Health Status Inform ant Allergic rhinitis(Confirmed) Active Family history of breast cancer(Confirmed) Active Hyperlipidemia(Confirmed) Active Cerumen impaction(Confirmed) Active Lump or Mass in Breast, righ t breast near axilla(Confirmed) 01/16/10 Active Migraine(Confirmed) Active NAFLD (nonalcoholic fatty li yaneth disease)(Confirmed) Active Obese class I(Confirmed) Active Obesity(Confirmed) Active Paroxysmal atrial fibrillation(Confirmed) Active Solitary Cyst of Breast righ t breat at 7:00(Confirmed) 01/16/10 Active Vitamin D deficiency(Confirmed) Active Social History Social History Type Response Smoking Status Never (less than 100 in lifetime); Tobacco user in household: No entered on: 07/31/18 Sex
--- OUTSIDE RECORDS SUMMARY | 2023-08-14 08:20 | XMS_ITS | Continuity of Care Document ---
Author Organization [facility] Address [address] [place] [address]- Care Team Providers Care Biodiesel Technology Manager Name Role Phone Ash LARRY CAR OPERATOR, Michelle Briseno Primary Care Physician En[place] [facility] [place](s): 11/26/22 - 12/26/22 [facility] [address] [address]- Attending Physician: Presley Priest Admitting Physician: Presley [...] Wan to Standard Admin Times 2Admin Note: [id number] VIS SHEET GIVEN 3Admin Note: 10/17/10 vis sheet given 4Admin Note: 03/01/08 vis sheet given Medications aspirin 81 mg oral tablet, chewable = 81 mg, By Mouth, Daily, 0 Refills, Maintenance, 07/19/14 12:23:35, Chew Tablet Start Date: 07/19/14 Status: Ordered atorvastatin 10 mg oral tablet 1 tablet, By Mouth, Daily in PM, # 90 tablet, 1 Refills, Maintenance, 12/23/22 6:33:00 EDT, [id number], 165, cm, 11/22/22 14:37:00 EDT, Height Start Date: 12/23/22 Status: Ordered azelastine nasal 0.15% spray 2 sprays, Nares, Both, 2 times a day, PRN for allergy symptoms, # 30 mL, 2 Refills, Maintenance, 02/01/21 14:05:00 EDT, [place], [facility]/pharmacy #[id number], Partial fill upon patient request if the prescription is for a schedule II opioid drug., 2 sprays Nares,... Start Date: 02/01/21 Status: Ordered MiraLax = 17 Gm, By Mouth, Daily, 0 Refills, Maintenance, 07/31/18 7:25:44 EDT Start Date: 07/31/18 Status: Ordered Multivitamin By Mouth, Daily, 0 Refills, Maintenance, 03/03/14 14:13:28 Start Date: 03/03/14 Status: Ordered Ozempic 2 mg/3 mL (0.25 mg or 0.5 mg dose) subcutaneous solution = 0.25 mg, Subcutaneous Infusion, Every week, rotate injection sites, # 4 each, 1 Refills, Maintenance, 12/24/22 12:07:00 EDT, [facility]/pharmacy #[id number], Partial fill upon patient request if the prescription is for a schedule II opioid drug., 165, cm, ... Start Date: 12/24/22 Stop Date: 02/22/23 Status: Ordered Prilosec OTC = 20 mg, By Mouth, Daily, 0 Refills, Maintenance, 10/30/20 8:26:00 EDT, Partial fill upon patient request if the prescription is for a schedule II opioid drug. Start Date: 10/30/20 Status: Ordered Transderm-Scop 1 mg/72 hr transdermal film, extended release 1 film, Topically, Every 72 hours, # 4 each, 0 Refills, Maintenance, 03/26/22 7:16:00 EST, [facility]/pharmacy #[id number], Partial fill upon patient request if the prescription is for a schedule II opioid drug.,1 film Topically Every 72 hours, 165, cm, 03/26/22... Start Date: 03/26/22 Status: Ordered Problem List Condition Confirmation Course Effective Dates Status H ealth Status Informant Allergic rhinitis Confirmed Active Family history of breast cancer Confirmed Active Hyperlipidemia Confirmed Active Cerumen impaction Confirmed Active Lobular [...] Personnel Name: Ash PARHAM, Michelle Briseno Position: [facility] PCO Associate Professional Member Role: PCP Address: Address: [address] [place] [phone]- Care Team Related Persons Name: DOMINIQUE VILLALPANDO Address: home [address] [place] [address]
--- OUTSIDE RECORDS SUMMARY | 2023-08-14 08:20 | XMS_ITS | Continuity of Care Document ---
[facility] Address [address] [place] [address]- Care Team Providers Care Differential Repairer Name Role Phone Ash TUBE CLOSING MACHINE OPERATOR, Michelle Briseno Primary Care Physician Encounter [facility] [id number] Date(s): 06/29/20 - [facility] [address] [place] [address]- Attending Physician: Presley Priest Admitting Physician: Admtr, Presley Referring Physician: Admtr, Ar8 Allergies, Adverse Reactions, Alerts No Known Medication [...] Wan to Standard Admin Times 2Admin Note: [id number] VIS SHEET GIVEN 3Admin Note: 10/17/10 vis sheet given 4Admin Note: 03/01/08 vis sheet given Medications aspirin 81 mg oral tablet, chewable = 81 mg, By Mouth, Daily, 0 Refills, Maintenance, 07/19/14 12:23:35, Chew Tablet Start Date: 07/19/14 Status: Ordered Claritin 10 mg oral tablet 10 mg, 1, tablet, By Mouth, Daily, # 14 tablet, Refills 0, Tot. Refills 0, Maintenance, 05/06/18 12:02:04 EST, Route to Pharmacy Electronically, [id number], [id number] Start Date: 05/06/18 Stop Date: 05/20/18 Status: Ordered MiraLax = 17 Gm, By Mouth, Daily, 0 Refills, Maintenance, 07/31/18 7:25:44 EDT Start Date: 07/31/18 Status: Ordered Multivitamin By Mouth, Daily, 0 Refills, Maintenance, 03/03/14 14:13:28 Start Date: 03/03/14 Status: Ordered Problem List Condition Effective Dates Status Health Status Inform ant Allergic rhinitis(Confirmed) Active Hyperlipidemia(Confirmed) Active Cerumen impaction(Confirmed) Active Lump or Mass in Breast, righ t breast near axilla(Confirmed) 01/16/10 Active Migraine(Confirmed) Active NAFLD (nonalcoholic fatty li yaneth disease)(Confirmed) Active Obesity(Confirmed) Active Paroxysmal atrial fibrillation(Confirmed) Active Solitary Cyst of Breast righ t breat at 7:00(Confirmed) 01/16/10 Active Vitamin D deficiency(Confirmed) Active Social History Social History Type Response Smoking Status Never (less than 100 in lifetime); Tobacco user in household: No entered on: 07/31/18 Sex
--- OUTSIDE RECORDS SUMMARY | 2023-08-14 08:20 | XMS_ITS | Continuity of Care Document ---
Author Organization [facility] Address [address] [place] [address]- Care Team Providers Care Manager Agricultural Name Role Phone Ash PARHAM, Michelle M Primary Care Physician Encounter [facility] Date(s): 04/22/22 - 05/22/22 [facility] [address] [place] [address]- Attending Physician: Presley Priest Admitting Physician: AdmPresley juarez Referring Physician: AdmtrPresley Allergies, Adverse Reactions, Alerts [...] Wan to Standard Admin Times 2Admin Note: [id number] VIS SHEET GIVEN 3Admin Note: 10/17/10 vis [...] mL, 2 Refills, Maintenance, 02/01/21 14:05:00 EDT, [place], [id number], Partial fill upon patient request [...] 100 in lifetime) entered on: 04/22/22 Sex Note * Event Display: Non Lab Results Authored Date: Patient Care team information Care Team Personnel Name: Ash PARHAM, Michelle Briseno Position: [facility] PCO Associate Professional Member Role: PCP Address: Address: [address] [place] [address]- Care Team Related Persons Name: VLILALPANDODOMINIQUE Address: home [address] [place] [address]
--- OUTSIDE RECORDS SUMMARY | 2023-08-14 08:20 | XMS_ITS | Continuity of Care Document ---
Author Organization [facility] Address [address] [place] [address]- Care Team Providers Care Drier Unloader Name Role Phone Michelle Aleman NP Primary Care Physician Encounter [facility] [id number] Date(s): 04/11/23 - 04/18/23 [facility] [address] [place] [address]- [place] Encounter Diagnosis Annual physical exam(Discharge Diagnosis) - 04/11/23 NAFLD (nonalcoholic fatty liver disease)(Discharge Diagnosis) - 04/11/23 Severe obesity (BMI 35.0-39.9) with comorbidity(Discharge Diagnosis) - 04/11/23 Paroxysmal atrial fibrillation(Discharge Diagnosis) - 04/11/23 HTN (hypertension)(Discharge Diagnosis) - 04/12/23 Mixed hyperlipidemia(Discharge Diagnosis) - 04/12/23 Attending Physician: Michelle Aleman NP Allergies, Adverse Reactions, [...] influenza virus vaccine, inactivated 12/29/08 Give n [id number] 12y+ bivalent booster vax 12/31/21 Recorded SARS-CoV-2 mRNA ([id number]-rbzb-hhmtc) vax 09/11/21 Recorded SARS-CoV-2 (COVID-19) mRNA BNT-162b2 [...] Wan to Standard Admin Times 2Admin Note: [id number] VIS SHEET GIVEN 3Admin Note: 10/17/10 vis [...] mL, 2 Refills, Maintenance, 02/01/21 14:05:00 EDT, [id number] fill upon patient request [...] 04/11/23 16:18:00 EST, Route to Pharmacy Electronically, [facility]/pharmacy #[id number], Partial fill upon patient request if [...] patch, 0 Refills, Maintenance, 04/11/23 16:20:00 EST, [facility]/pharmacy #[id number], Partial fill upon patient request if the prescription is for a schedule II opioid drug., 1 patch Ear, Right Every 7... Start Date: 04/11/23 Status: Ordered Problem List Condition Confirmation Course [...] 01/16/10 Active Vitamin D deficiency Confirmed Active Diagnosis Diagnosis Type Effective Dates Health Status Clinical Service Informant Annual physical exam Discharge Diagnosis 04/11/23 NAFLD (nonalcoholic fatty liver disease) Discharge Diagnosis 04/11/23 Severe obesity (BMI 35.0-39.9) with comorbidity Discharge Diagnosis 04/11/23 Paroxysmal atrial fibrillation Discharge Diagnosis 04/11/23 HTN (hypertension) Discharge Diagnosis 04/12/23 Mixed hyperlipidemia Discharge Diagnosis 04/12/23 Vital Signs Most recent to oldest [Reference Range]: 1 Height 165 cm (04/11/23 3:42 PM) Weight 100.3 kg (04/11/23 3:42 PM) Oxygen Saturation [94-100 %] 99 % (04/11/23 3:42 PM) Pulse Rate [55-90 bpm] 68 bpm (04/11/23 3:42 PM) Body Mass Index [18.5-24.99 kg/m2] 36.84 kg/m2 *>HHI* (04/11/23 3:42 PM) Blood Pressure [90-138/55-84 mm Hg] 130/ 80mm Hg (04/11/23 3:42 PM) Respiratory Rate [16-30 br/min] 15 br/mi n *L* (04/11/23 3:42 PM) Temperature [96.8-100.4 DegF] 97.4 DegF (04/11/23 3:42 PM) Mode of Delivery (Oxygen) Room air (04/11/23 3:42 PM) Blood pressure sites Arm, left (04/11/23 3:42 PM) Temperature Route Temporal (04/11/23 3:42 PM) Weight Obtained Via Standing scale (04/11/23 3:42 PM) Social History Social History Type Response Smoking Status Never (less than 100 in lifetime) entered on: 04/22/22 Sex Note * Eden Nava: PERFORM, SIGN, VERIFY Event Display: Patient Education/Instruction Authored Date: [id number] [facility] *BMP Quab Adlt Med Bltn Clinical Summary Name MERISSA VILLALPANDO Age 57 Years 1965 PCP Ash DECK HAND, Michelle Briseno PCP Visit Date 04/11/2023 15:38:00 Additional Instructions: Scheduled Appointments?? Future Appointments ?[facility] ?[address]??[place],??[place],??[address] ?Phone:??[phone]?Fax:??-- ?Appt. Date:??04/18/2023?10:30 AM ?Scheduled Provider:??[facility] 3D Mammo Rm 2 ?*[facility] ?[address]??[place],??[place],??[address] ?Phone:??--?Fax:??-- ?Appt. Date:??04/18/2023?11:00 AM ?Scheduled Provider:??Dario DECK HAND , Yanira L ?*[facility] ?[address]??[place],??[place],??[address] ?Phone:??--?Fax:??-- ?Appt. Date:??06/06/2023?8:45 AM ?Scheduled Provider:??Joce BLANCO , Chi Briseno ?*[facility] ?[address] ?[place],??[place],??[address] ?Phone:??--?Fax:??-- ?Appt. Date:??07/10/2023?9:00 AM ?Scheduled Provider:??Peter BLANCO, Nisha Figueredo Follow-Up Instructions ?? Diagnosis Fatty (change of) liver, not elsewhere classified; Paroxysmal atrial fibrillation; Encounter for general adult medical examination without abnormal findings; Morbid (severe) obesity due to excess calories Medications: Please continue your medications until treatment is completed or stopped by your provider. Discuss any questions related to medications with your provider. New Medications [facility]/pharmacy #[facility], [address] [place] [address] [phone], [phone] Scopolamine (scopolamine 1 mg/72 hr transdermal film, extended release) 1 patch(es) Right ear every72 hours as needed Motion Sickness. Refills: 0. Next Dose: Medications to Continue Taking That Have Changed [facility], [address] [place] [address] [phone], [phone] - Hydrochlorothiazide (hydrochlorothiazide 25 mg oral tablet) 1 tab(s) Oral Daily for 90 Days. Refills: 1. Next Dose: Medications to Continue with No Changes [facility], [address] [place] [address] [phone], [phone] Atorvastatin (atorvastatin 10 mg oral tablet) 1 tab(s) Oral Daily in PM. Refills: 1. Next Dose: These medications were not printed or sent to your pharmacy Aspirin (aspirin 81 mg oral tablet, chewable) 81 Milligram Oral Daily. Next Dose: Azelastine Nasal (azelastine nasal 0.15% spray) 2 spray(s) Nares, Both twice a day as needed for allergy symptoms. Refills: 2. Next Dose: Durable Medical Equipment (Home Blood Pressure Monitor) Check BP daily. 1-2 hours after taking medication. Call if >140/90.. Refills: 0. Next Dose: Multivitamin Oral Daily. Next Dose: Omeprazole (Prilosec OTC) 20 Milligram Oral Daily. Next Dose: PEG Electrolyte Solution (MiraLax) 17 gram Oral Daily. Next Dose: Allergy Info:?? No Known Medication Allergies; Other Environmental Allergy Medications Given This Visit Future Orders ?Dexa Bone Density (Axial)? Order Date:04/11/23?- Complete on or after?04/11/23 ?Comprehensive Metabolic Panel? Order Date:04/11/23?- Complete by?04/11/23 Vital Signs Height 165 cm Weight 100.3 kg BMI 36.84 kg/m2 Blood Pressure 130 mm Hg/80 mm Hg Temperature 97.4 DegF Pulse Rate 68 bpm Respiratory Rate 15 br/min 02 Sat Mode of Delivery 99 %/Room air You can now view a summary of your hospital visit from the comfort of your home through a free online portal called [employer]. [employer] is a website that allows you to securely view your medical information including discharge summary, medications and follow-up visits. ??You can alsosend a secure electronic message to your doctor???s office to request appointments, renew medications or just ask a question. You can enroll at [email or web address] or register during your next office visit. Disclaimer:?? The information provided is of a general nature and is intended to be used in conjunction with the recommendations and advice of your health care practitioner. ??Every effort has been made to ensure that the information provided is accurate and complete at the time it is provided to you however, as your needs change, or, as new ??information becomes available, different or additional instructions may be required. If you have questions, please consult with your primary care provider or pharmacist, as appropriate. ??This information is not intended to serve as substitution for assessment and evaluation by a qualified health care provider. If you do not have a primary care provider, you may find a [facility] provider by calling [facility] [employer] at [phone]. [facility], in keeping with [facility] guidance, no longer requires face masks for staff, patientsor visitors in most situations. Similar to time spent indoors at other locations, there is the chance that you were exposed to respiratory viruses during your time with us (such as flu or COVID-19).? If you develop symptoms concerning for a viral respiratory infection, please seek testing (and treatment if indicated) from your medical provider or home test kit. For information about the plan of care including goals and instructions for your diagnosis, please see the patient education orders section of this document. Patient Education Materials?? The content of this educational material or handout may have been modified, supplemented, or adapted from its original content and format to support your individualized medical care. Patient Care team information Care Team Personnel Name: Michelle Aleman NP Position: [facility] Associate Professional Member Role: PCP Address: Address: [address] [place] [address]- [place] Care Team Related Persons Name: DOMINIQUE VILLALPANDO Address: home [address] [place] [address]
--- OUTSIDE RECORDS SUMMARY | 2023-08-14 08:20 | XMS_ITS | Continuity of Care Document ---
Author Organization [facility] Address [address] [place] [address]- Care Team Providers Care Education Assistant Name Role Phone Ash LITHOGRAPHER HELPER, Michelle M Primary Care Physician Encounter [facility] Date(s): 12/24/22 - 01/23/23 [facility] [address] [place] [address]- [place] Allergies, Adverse Reactions, Alerts No Known [...] influenza virus vaccine, inactivated 12/29/08 Give n [id number] 12y+ bivalent booster vax 12/31/21 Recorded SARS-CoV-2 mRNA (aaejyyq-ptvz-wbwpl) vax 09/11/21 Recorded SARS-CoV-2 (COVID-19) mRNA BNT-162b2 vac 01/09/21 Recorded SARS-CoV-2 (COVID-19) mRNA BNT-162b2 vac 06/24/20 Recorded SARS-CoV-2 (COVID-19) mRNA BNT-162b2 vac 06/04/20 Recorded zoster vaccine, inactivated 09/15/20 Recorded zoster vaccine, inactivated 05/03/20 Recorded Influenza Virus Vaccine (oldterm) 01/13/20 Recorde d pneumococcal 23-valent vaccine 1 07/19/14 Given Influenza Vaccine (oldterm) 2 12/5/12 Given Influenza Inactive (IM) (oldterm) 3 05/15/11 [...] Refills, Maintenance, 12/23/22 6:33:00 EDT[id number], 165, cm, 11/22/22 14:37:00 EDT, Height Start Date: 12/23/22 Status: Ordered azelastine nasal 0.15% spray 2 sprays, Nares, Both, 2 times a day, PRN for allergy symptoms, # 30 mL, 2 Refills, Maintenance, 02/01/21 14:05:00 EDT, [place], [facility]/pharmacy #1111, Partial fill [...] mg, 1, tablet, By Mouth, Daily, # 30 tablet, Refills 6, Tot. Refills 6, Maintenance, 01/07/23 16:09:00 EDT, Route to Pharmacy Electronically, [facility]/pharmacy #1111, Partial fill upon patient request if the prescription is for a schedule II opioid drug... Start Date: 01/07/23 Stop Date: 4/23/24 Status: Ordered MiraLax = 17 Gm, By [...] Associate Professional Member Role: PCP Address: Address: [address] [place] [address]- [place] Care Team Related Persons Name: DOMINIQUE VILLALPANDO Address: home [address] [place] [address]
--- OUTSIDE RECORDS SUMMARY | 2023-08-14 08:20 | XMS_ITS | Continuity of Care Document ---
Author Organization [facility] Address [address] [place] [address]- Care Team Providers Care Outside Industrial Sales Representative Name Role Phone Ash PARHAM, Michelle M Primary Care Physician Encounter [facility] Date(s): 11/22/22 - 12/22/22 [facility] [address] [place] [address]- Attending Physician: Presley Priest Admitting Physician: Presley [...] Wan to Standard Admin Times 2Admin Note: [id number] VIS SHEET GIVEN 3Admin Note: 10/17/10 vis sheet given 4Admin Note: 03/01/08 vis sheet given Medications aspirin 81 mg oral tablet, chewable = 81 mg, By Mouth, Daily, 0 Refills, Maintenance, 07/19/14 12:23:35, Chew Tablet Start Date: 07/19/14 Status: Ordered atorvastatin 10 mg oral tablet 1 tablet = 10 mg, By Mouth, Daily, Take medication in the evening., # 30 tablet, 3 Refills, Maintenance, 09/25/22 16:22:00 EDT, [facility]/pharmacy #1111, Partial fill upon patient request if the prescription is for a schedule II opioid drug., 165sara, 09/24... Start Date: 09/25/22 Stop Date: 01/23/23 Status: Ordered azelastine nasal 0.15% spray 2 sprays, Nares, Both, 2 times a day, PRN for allergy symptoms, # 30 mL, 2 Refills, Maintenance, 02/01/21 14:05:00 EDT, [place], [facility]/pharmacy #1111, Partial fill upon patient request [...] sites, # 4 each, 1 Refills, Maintenance, 11/18/22 16:47:00 EDT, [id number], Partial fill upon patient request if the prescription is for a schedule II opioid drug., 165 cm, .. Start Date: 11/18/22 Stop Date: 01/17/23 Status: Ordered Prilosec OTC = 20 mg, By Mouth, Daily, 0 Refills, Maintenance, 10/30/20 8:26:00 EDT, Partial fill upon patient request if the prescription is for a schedule II opioid drug. Start Date: 10/30/20 Status: Ordered Transderm-Scop 1 mg/72 hr transdermal film, extended release 1 film, Topically, Every 72 hours, # 4 each, 0 Refills, Maintenance, 03/26/22 7:16:00 EST, [facility]/pharmacy #1111, Partial fill upon patient request [...] Associate Professional Member Role: PCP Address: Address: [address] [place] [address]- Care Team Related Persons Name: DOMINIQUE VILLALPANDO Address: home [address] [place] [address]
--- OUTSIDE RECORDS SUMMARY | 2023-08-14 08:20 | XMS_ITS | Continuity of Care Document ---
Author Organization [facility] Address [address] [place] [address]- Care Team Providers Care Plastic Die Maker Apprentice Name Role Phone Ash PARHAM, Michelle Briseno Primary Care Physician Encounter [facility] Date(s): 11/22/20 - 11/29/20 [facility] [address] [address]- [place] Encounter Diagnosis NAFLD (nonalcoholic fatty liver disease)(Discharge Diagnosis) - 11/22/20 Obesity(Discharge Diagnosis) - 11/22/20 Mixed hyperlipidemia(Discharge Diagnosis) - 11/22/20 Attending Physician: Michelle Aleman NP Allergies, Adverse [...] Wan to Standard Admin Times 2Admin Note: [id number] VIS SHEET GIVEN 3Admin Note: 10/17/10 vis [...] 05/06/18 12:02:04 EST, Route to Pharmacy Electronically, [id number], [facility]/pharmacy #1111 Start Date: 05/06/18 Stop Date: 05/20/18 [...] 7:00(Confirmed) 01/16/10 Active Vitamin D deficiency(Confirmed) Active Diagnosis Diagnosis Type Effective Dates Health Status Clinical Service Informant NAFLD (nonalcoholic fatty liver disease) Discharge Diagnosis 11/22/20 Obesity Discharge Diagnosis 11/22/20 Mixed hyperlipidemia Discharge Diagnosis 11/22/20 Vital Signs Most recent to oldest [Reference Range]: 1 Height 165 cm (11/22/20 9:23 AM) Social History Social History Type Response Smoking Status Never (less than 100 in lifetime); Tobacco user in household: No entered on: 07/31/18 Sex
--- OUTSIDE RECORDS SUMMARY | 2023-08-14 08:20 | XMS_ITS | Continuity of Care Document ---
Author Organization [facility] Address [address] [place] [address]- Care Team Providers Care Angio Technologist Name Role Phone Ash FARMWORKER FRYER FARM, Michelle M Primary Care Physician Encounter [facility] Date(s): 04/03/22 - 04/10/22 [facility] [address] [place] [address]- Attending Physician: Peter BLANCO, Nisha Figueredo Admitting Physician: Peter BLANCO, Nisha Figueredo Allergies, Adverse Reactions, Alerts No Known Medication [...] Wan to Standard Admin Times 2Admin Note: [id number] VIS SHEET GIVEN 3Admin Note: 10/17/10 vis [...] mL, 2 Refills, Maintenance, 02/01/21 14:05:00 EDT, [place], [facility], Partial fill upon patient request [...] Associate Professional Member Role: PCP Address: Address: [address] [place] [address] [place] [address]- Care Team Related Persons Name: VILLALPANDODOMINIQUE Address: home [address] [place] [address]
--- OUTSIDE RECORDS SUMMARY | 2023-08-14 08:20 | XMS_ITS | Continuity of Care Document ---
Author Organization [facility] Address [address] [place] [address]- Care Team Providers Care Senior Search Marketing Analyst Name Role Phone Ash KNIT GOODS CUTTER HAND, Michelle M Primary Care Physician Encounter [facility] Date(s): 11/22/20 - 12/22/20 [facility] [address] [place] [address]- Attending Physician: AdmPresley juarez Admitting Physician: AdmPresley juarez Referring Physician: Admtr, Ar8 Allergies, Adverse Reactions, [...] Wan to Standard Admin Times 2Admin Note: [id number] VIS SHEET GIVEN 3Admin Note: 10/17/10 vis [...] 05/06/18 12:02:04 EST, Route to Pharmacy Electronically, [id number], [facility]/pharmacy #1111 Start Date: 05/06/18 Stop Date: [...]
--- OUTSIDE RECORDS SUMMARY | 2023-08-14 08:20 | XMS_ITS | Continuity of Care Document ---
Author Organization [facility] Address [address] [place] [address]- Care Team Providers Care Commission Specialist Name Role Phone Ash LEAD SOFTWARE QA ENGINEER, Michelle M Primary Care Physician Encounter [facility] Date(s): 01/04/22 - 02/03/22 [facility] [address] [place] [address]- [place] Allergies, Adverse Reactions, Alerts No Known [...] Wan to Standard Admin Times 2Admin Note: [id number] VIS SHEET GIVEN 3Admin Note: 10/17/10 vis [...] mL, 2 Refills, Maintenance, 02/01/21 14:05:00 EDT, [place], [facility], Partial fill upon patient request if the prescription is for a schedule II opioid drug., 2 sprays Nares,... Start Date: 02/01/21 Status: Ordered Claritin 10 mg oral tablet 10 mg, 1, tablet, By Mouth, Daily, # 14 tablet, Refills 0, Tot. Refills 0, Maintenance, 05/06/18 12:02:04 EST, Route to Pharmacy Electronically, [id number], [facility]/pharmacy #1111 Start Date: 05/06/18 Stop Date: 05/20/18 Status: Ordered MiraLax = 17 Gm, By Mouth, Daily, 0 Refills, Maintenance, 07/31/18 7:25:44 EDT Start Date: 07/31/18 Status: Ordered Multivitamin By Mouth, Daily, 0 Refills, Maintenance, 03/03/14 14:13:28 Start Date: 03/03/14 Status: Ordered Paxlovid 150 mg-100 mg oral tablet See Instructions, Take 300 mg of Nirmatrelvir (two 150 mg tablets) with 100 mg of Ritonavir (one tablet) twice daily for 5 days. Take all 3 tablets together, # 30 tablet, 0 Refills, Maintenance, 09/13/21 12:15:00 EDT, [facility]... Start Date: 09/13/21 Status: Ordered Prilosec OTC = 20 mg, By Mouth, Daily, 0 Refills, Maintenance, 10/30/20 8:26:00 EDT, Partial fill upon patient request if the prescription is for a schedule II opioid drug. Start Date: 10/30/20 Status: Ordered Transderm-Scop 1 mg/72 hr transdermal film, extended release 1 film, Topically, Every 72 hours, # 4 each, 0 Refills, Maintenance, 01/04/22 13:43:00 EDT, [facility], Partial fill upon patient request if the prescription is for a schedule II opioid drug., 1 film Topically Every 72 hours, 165, cm, 04/10/21... Start Date: 01/04/22 Status: Ordered Problem List Condition Confirmation Course [...] on: 07/31/18 Sex Patient Care team information Personnel Name: Ash PARHAM, Michelle Briseno Address: Address: [address] [place] [id number]
--- OUTSIDE RECORDS SUMMARY | 2023-08-14 08:20 | XMS_ITS | Continuity of Care Document ---
Author Organization [facility] Address [address] [place] [address]- Care Team Providers Care International Guest Coordinator Name Role Phone Michelle Aleman NP Primary Care Physician Encounter [facility] Date(s): 09/24/22 - 10/01/22 [facility] Adult [address] [address]- [place] Encounter Diagnosis Mixed hyperlipidemia(Discharge Diagnosis) - 09/24/22 NAFLD (nonalcoholic fatty liver disease)(Discharge Diagnosis) - 09/24/22 Severe obesity (BMI 35.0-39.9) with comorbidity(Discharge Diagnosis) - 09/24/22 Attending Physician: Michelle Aleman NP Allergies, Adverse [...] Wan to Standard Admin Times 2Admin Note: [id number] VIS SHEET GIVEN 3Admin Note: 10/17/10 vis [...] tablet, 3 Refills, Maintenance, 09/25/22 16:22:00 EDT, [id number] Partial fill upon patient request if the prescription is for a schedule II opioid drug., 165, cm, 09/24... Start Date: 09/25/22 Stop Date: 01/23/23 Status: Ordered azelastine nasal 0.15% spray 2 sprays, Nares, Both, 2 times a day, PRN for allergy symptoms, # 30 mL, 2 Refills, Maintenance, 02/01/21 14:05:00 EDT, [place], [id number], Partial fill upon patient request [...] Effective Dates Health Status Clinical Service Informant Mixed hyperlipidemia Discharge Diagnosis 09/24/22 NAFLD (nonalcoholic fatty liver disease) Discharge Diagnosis 09/24/22 Severe obesity (BMI 35.0-39.9) with comorbidity Discharge Diagnosis 09/24/22 Vital Signs Most recent to oldest [Reference Range]: 1 2 Height 165 cm (09/24/22 7:30 AM) 165 cm (09/24/22 7:07 AM) Weight 97.6 kg (09/24/22 7:07 AM) Oxygen Saturation [94-100 %] 98 % (09/24/22 7:07 AM) Pulse Rate [55-90 bpm] 73 bpm (09/24/22 7:07 AM) Body Mass Index [18.5-24.99 kg/m2] 35.85 kg/m2 *>HHI* (09/24/22 7:07 AM) Blood Pressure [90-138/55-84 mm Hg] 136/ 78mm Hg (09/24/22 7:30 AM) 140/90mm Hg *H* (09/24/22 7:07 AM) Respiratory Rate [16-30 br/min] 15 br/mi n *L* (09/24/22 7:07 AM) Temperature [96.8-100.4 DegF] 96.7 DegF *L* (09/24/22 7:07 AM) Mode of Delivery (Oxygen) Room air (09/24/22 7:07 AM) Blood pressure sites Arm, left (09/24/22 7:30 AM) Arm, left (09/24/22 7:07 AM) Temperature Route Temporal (09/24/22 7:07 AM) Weight Obtained Via Standing scale (09/24/22 7:07 AM) Social History Social History Type Response Smoking Status Never (less than 100 in lifetime) entered on: 04/22/22 Sex Note * Merna Velazquez: PERFORM, SIGN, VERIFY Event Display: Patient Education/Instruction Authored Date: [id number] [facility] *BMP Quab Adlt Med Bltn Clinical Summary Name MERISSA VILLALPANDO Age 57 Years 1965 PCP Ash ONCOLOGY REP SPECIALIST, Michelle Briseno PCP Visit Date 09/24/2022 07:01:00 Additional Instructions: Scheduled Appointments?? Future Appointments ?*[facility] ?[address] ?[place],??[place],??[address] ?Phone:??--?Fax:??-- ?Appt. Date:??11/26/2022?11:30 AM ?Scheduled Provider:??Peter BLANCO, Nisha Figueredo ?[facility] ?[address]??[place],??[place],??[address] ?Phone:??[phone]?Fax:??-- ?Appt. Date:??04/18/2023?10:30 AM ?Scheduled Provider:??[facility] 3D Mammo Rm 2 Follow-Up Instructions ?? Diagnosis Medications: Please continue your medications until treatment is completed or stopped by your provider. Discuss any questions related to medications with your provider. Medications to Continue with No Changes These medications were not printed or sent to your pharmacy Aspirin (aspirin 81 mg oral tablet, chewable) 81 Milligram Oral Daily. Next Dose: Azelastine Nasal (azelastine nasal 0.15% spray) 2 spray(s) Nares, Both twice a day as needed for allergy symptoms. Refills: 2. Next Dose: Multivitamin Oral Daily. Next Dose: Omeprazole (Prilosec OTC) 20 Milligram Oral Daily. Next Dose: PEG Electrolyte Solution (MiraLax) 17 gram Oral Daily. Next Dose: Scopolamine (Transderm-Scop 1 mg/72 hr transdermal film, extended release) 1 Film Topically every 72 hours. Refills: 0. Next Dose: Allergy Info:?? No Known Medication Allergies; Other Environmental Allergy Medications Given This Visit Future Orders ?No future orders Vital Signs Height 165 cm Weight 97.6 kg BMI 35.85 kg/m2 Blood Pressure 136 mm Hg/78 mm Hg Temperature 96.7 DegF Pulse Rate 73 bpm Respiratory Rate 15 br/min 02 Sat Mode of Delivery 98 %/Room air You can now view a summary of your hospital visit from the comfort of your home through a free online portal called [employer]. [employer] is a website that allows you to securely view your medical information including discharge summary, medications and follow-up visits. ??You can alsosend a secure electronic message to your doctor???s office to request appointments, renew medications or just ask a question. You can enroll at [email or web address] or register during your next office visit. [...] primary care provider, you may find a [facility] provider by calling [facility] [employer] [facility] at [phone]. For information about the plan of care [...] Briseno Position: [facility] PCO Associate Professional Member Role: PCP Address: Address: [address] [place] [address]- Care Team Related Persons Name: DOMINIQUE VILLALPANDO Address: [address] [address]
--- OUTSIDE RECORDS SUMMARY | 2023-08-14 08:20 | XMS_ITS | Continuity of Care Document ---
Author Organization [facility] [employer] [facility] Address [address] [place] [address]- Care Team Providers Care Disk Operator Name Role Phone Ash PARHAM, Michelle Briseno Primary Care Physician Encounter [facility] NBR [id number] Date(s): 08/16/20 - 10/29/20 [facility] [employer] Adult Medicine [address] [place] [address]- Attending Physician: Michelle Aleman NP Allergies, Adverse [...] Wan to Standard Admin Times 2Admin Note: [id number] VIS SHEET GIVEN 3Admin Note: 10/17/10 vis [...] 05/06/18 12:02:04 EST, Route to Pharmacy Electronically, [id number], [id number] Start Date: 05/06/18 Stop Date: [...]
--- OUTSIDE RECORDS SUMMARY | 2023-08-14 08:20 | XMS_ITS | Continuity of Care Document ---
Author Organization [facility] [employer] Adult [facility] Address [address] [place] [address]- Care Team Providers Care Foreign Food Cook Specialty Name Role Phone Michelle Aleman NP Primary Care Physician Encounter [facility] NBR [id number] Date(s): 04/22/22 - 04/29/22 [employer] Adult [address] [address]- Encounter Diagnosis Pain and swelling of toe of right foot(Discharge Diagnosis) - 04/22/22 Attending Physician: Rosario Blandon NP Referring Physician: Michelle Aleman NP Allergies, Adverse [...] Wan to Standard Admin Times 2Admin Note: [id number] VIS SHEET GIVEN 3Admin Note: 10/17/10 vis [...] mL, 2 Refills, Maintenance, 02/01/21 14:05:00 EDT, [place], [id number], Partial fill upon patient request [...] Diagnosis Diagnosis Type Effective Dates Health Status Cl inical Service Informant Pain and swelling of toe of right foot Discharge Diagnosis 04/22/22 Vital Signs Most recent to oldest [Reference Range]: 1 Height 165 cm (04/22/22 12:26 PM) Social History Social History Type Response Smoking Status Never (less than 100 in lifetime) entered on: 04/22/22 Sex Note * Christen Billings: PERFORM, SIGN, VERIFY Event Display: Patient Education/Instruction Authored Date: [id number] [facility] *BMP Quab Adlt Med Bltn Clinical Summary Name MERISSA VILLALPANDO Age 57 Years 1965 PCP Ash INSPECTOR BRAKE LINING, Michelle Briseno PCP Visit Date 04/22/2022 12:40:00 Additional Instructions: Scheduled Appointments?? Future Appointments ?*[facility] ?[address],??[place],??[address] ?Phone:??--?Fax:??-- ?Appt. Date:??05/17/2022?9:00 AM ?Scheduled Provider:??ROSALINDA Qureshi Jodi M ?[facility] ?[address]??[place],??[place],??[address] ?Phone:??[phone]?Fax:??-- ?Appt. Date:??04/18/2023?10:30 AM ?Scheduled Provider:??[facility] 3D Mammo Rm 2 Follow-Up Instructions ?? Diagnosis Pain in right toe(s) Medications: Please continue your medications until treatment [...] orders Vital Signs Height 165 cm Weight BMI Blood Pressure / Temperature Pulse Rate Respiratory Rate 02 Sat Mode of Delivery / You can now view a summary of your hospital visit from the comfort of your home through a free online portal called [employer]. [employer] is a website that allows you to securely view your medical information including discharge summary, medications and follow-up visits. ??You can alsosend a secure electronic message to your doctor???s office to request appointments, renew medications or just ask a question. You can enroll at [email or web address] or register during your next office [...] primary care provider, you may find a [facility] provider by calling [facility] [employer] at [phone]. For information about the plan of care [...] Name: Ash PARHAM, Michelle Briseno Position: [facility] PCO Associate Professional Member Role: PCP Address: Address: [address] [place] [address]- Care Team Related Persons Name: DOMINIQUE VILLALPANDO Address: home [address] [place] [address]
--- OUTSIDE RECORDS SUMMARY | 2023-08-14 08:20 | XMS_ITS | Continuity of Care Document ---
Author Organization [facility] Address [address] [place] [address]- Care Team Providers Care Boat Hand Name Role Phone Ash PARHAM, Michelle Briseno Primary Care Physician Encounter [facility] Date(s): 12/25/22 - 01/24/23 [facility] [address] [place], [place] [address] Allergies, Adverse Reactions, Alerts No Known Medication [...] influenza virus vaccine, inactivated 12/29/08 Give n [id number] 12y+ bivalent booster vax 12/31/21 Recorded SARS-CoV-2 mRNA (odhzjyg-vqlv-myftd) vax 09/11/21 Recorded SARS-CoV-2 (COVID-19) mRNA BNT-162b2 [...] Refills, Maintenance, 12/23/22 6:33:00 EDT, [facility], 165, cm, 11/22/22 14:37:00 EDT, Height Start Date: 12/23/22 Status: Ordered azelastine nasal 0.15% spray 2 sprays, Nares, Both, 2 times a day, PRN for allergy symptoms, # 30 mL, 2 Refills, Maintenance, 02/01/21 14:05:00 EDT, [place], [facility], Partial fill upon patient request [...] 01/07/23 16:09:00 EDT, Route to Pharmacy Electronically, [id number], Partial fill upon patient request if the prescription is for a schedule II opioid drug... Start Date: 01/07/23 Stop Date: 08/05/23 Status: Ordered MiraLax = 17 Gm, By [...] Associate Professional Member Role: PCP Address: Address: [address] [place] [address]- Care Team Related Persons Name: IRASEMA DOMINIQUE Address: home [address] [address]
--- OUTSIDE RECORDS SUMMARY | 2023-08-14 08:20 | XMS_ITS | Continuity of Care Document ---
Author Organization [facility] Address [address] [place] [address]- Care Team Providers Care Route Sales Trainee Name Role Phone Ash PARHAM, Michelle M Primary Care Physician Encounter [facility] Date(s): 10/10/22 - 11/09/22 [facility] [address] [place] [address]- Allergies, Adverse Reactions, Alerts No Known Medication [...] Wan to Standard Admin Times 2Admin Note: [id number] VIS SHEET GIVEN 3Admin Note: 10/17/10 vis [...] 2 Refills, Maintenance, 02/01/21 14:05:00 EDT, [place], [facility], Partial fill upon patient request [...] Personnel Name: Ash PARHAM, Michelle Briseno Position: [facility] PCO Associate Professional Member Role: PCP Address: Address: [address] [place] [address]- Care Team Related Persons Name: DOMINIQUE VILLALPANDO Address: home [address] [place] [address]
--- OUTSIDE RECORDS SUMMARY | 2023-08-14 08:20 | XMS_ITS | Continuity of Care Document ---
Author Organization [facility] Address [address] [place] [address]- Care Team Providers Care Tree Worker Name Role Phone Ash PARHAM, Michelle Briseno Primary Care Physician [place] [facility] Date(s): 08/28/22 - 12/26/22 [facility] [address] [place] [address]- Attending Physician: Petre BLANCO, Nisha Figueredo Admitting Physician: Nisha Green MD Referring Physician: Michelle Aleman NP Allergies, Adverse [...] Wan to Standard Admin Times 2Admin Note: [id number] VIS SHEET GIVEN 3Admin Note: 10/17/10 vis sheet given 4Admin Note: 03/01/08 vis sheet given Medications aspirin 81 mg oral tablet, chewable = 81 mg, By Mouth, Daily, 0 Refills, Maintenance, 07/19/14 12:23:35, Chew Tablet Start Date: 07/19/14 Status: Ordered atorvastatin 10 mg oral tablet 1 tablet, By Mouth, Daily in PM, # 90 tablet, 1 Refills, Maintenance, 12/23/22 6:33:00 EDT, [facility], 165, cm, 11/22/22 14:37:00 EDT, Height Start Date: 12/23/22 Status: Ordered azelastine nasal 0.15% spray 2 sprays, Nares, Both, 2 times a day, PRN for allergy symptoms, # 30 mL, 2 Refills, Maintenance, 02/01/21 14:05:00 EDT, [place], [facility]/pharmacy #1111, Partial fill upon patient [...] each, 1 Refills, Maintenance, 12/24/22 12:07:00 EDT, [facility]/pharmacy #1111, Partial fill upon patient [...] Associate Professional Member Role: PCP Address: Address: [address] [place] [address]- Care Team Related Persons Name: DOMINIQUE VILLALPANDO Address: home [address] [place] [address]
--- OUTSIDE RECORDS SUMMARY | 2023-08-14 08:20 | XMS_ITS | Continuity of Care Document ---
Author Organization [facility] Address [address] [place] [address]- Care Team Providers Care Loan Underwriter Name Role Phone Ash AUTOMOBILE ACCESSORIES INSTALLER, Michelle M Primary Care Physician Encounter [facility] Date(s): 05/10/21 - 06/09/21 [facility] [address] [address] Attending Physician: Presley Priest Admitting Physician: Presley [...] Wan to Standard Admin Times 2Admin Note: [id number] VIS SHEET GIVEN 3Admin Note: 10/17/10 vis [...] mL, 2 Refills, Maintenance, 02/01/21 14:05:00 EDT, [place], [facility]/pharmacy #1111, Partial fill upon patient request if the prescription is for a schedule II opioid drug., 2 sprays Nares,... Start Date: 02/01/21 Status: Ordered Claritin 10 mg oral tablet 10 mg, 1, tablet, By Mouth, Daily, # 14 tablet, Refills 0, Tot. Refills 0, Maintenance, 05/06/18 12:02:04 EST, Route to Pharmacy Electronically, [id number], [facility]/pharmacy #1111 Start Date: 05/06/18 Stop Date: 05/20/18 [...]
--- OUTSIDE RECORDS SUMMARY | 2023-08-14 08:20 | XMS_ITS | Continuity of Care Document ---
Author Organization [facility] Address [address] [place] [address]- Care Team Providers Care Inshore Undersea Warfare Officer Name Role Phone Ash UNIX DEVELOPER, Michelle Briseno Primary Care Physician Encounter [facility] NBR [id number] Date(s): 06/29/20 - 07/29/20 [facility] Adult Medicine [address] [place] [address]- Allergies, Adverse Reactions, Alerts No Known Medication [...] Wan to Standard Admin Times 2Admin Note: [id number] VIS SHEET GIVEN 3Admin Note: 10/17/10 vis [...] 05/06/18 12:02:04 EST, Route to Pharmacy Electronically, [id number], [facility] Start Date: 05/06/18 Stop Date: [...]
--- OUTSIDE RECORDS SUMMARY | 2023-08-14 08:21 | XMS_ITS | Continuity of Care Document ---
Author Organization [facility] [employer] Adult [facility] Address [address] [place] [address]- Care Team Providers Care Irrigation Equipment Remover Name Role Phone Ash DIRECTOR REGULATORY COMPLIANCE, Michelle Briseno Primary Care Physician Encounter [facility] Date(s): 12/25/22 - 01/24/23 [facility] [address] [place] [address]- [place] Allergies, Adverse Reactions, Alerts No Known [...] influenza virus vaccine, inactivated 12/29/08 Give n [id number] 12y+ bivalent booster vax 12/31/21 Recorded SARS-CoV-2 mRNA (calktmw-ppys-deael) vax 09/11/21 Recorded SARS-CoV-2 (COVID-19) mRNA BNT-162b2 [...] Refills, Maintenance, 12/23/22 6:33:00 EDT, [facility], 165, cm, 11/22/22 14:37:00 EDT, Height Start Date: 12/23/22 Status: Ordered azelastine nasal 0.15% spray 2 sprays, Nares, Both, 2 times a day, PRN for allergy symptoms, # 30 mL, 2 Refills, Maintenance, 02/01/21 14:05:00 EDT, [place], [facility]/pharmacy #1111, Partial fill upon patient request [...] 01/07/23 16:09:00 EDT, Route to Pharmacy Electronically, [facility]/pharmacy #1111, Partial fill upon patient request [...] Associate Professional Member Role: PCP Address: Address: [address] [place] [address]- Care Team Related Persons Name: DOMINIQUE VILLALPANDO Address: home [address] [place] [address]
--- OUTSIDE RECORDS SUMMARY | 2023-08-14 08:21 | XMS_ITS | Continuity of Care Document ---
Author Organization [facility] Address [address] [place] [address]- Care Team Providers Care Life Sciences Teacher Name Role Phone Ash SUPERVISOR BREW HOUSE, Michelle M Primary Care Physician Encounter [facility] Date(s): 01/07/23 - 02/06/23 [facility] Adult [facility] [address] [place] [address]- Attending Physician: Presley Priest Admitting Physician: AdmPresley [...] influenza virus vaccine, inactivated 12/29/08 Give n [id number] 12y+ bivalent booster vax 12/31/21 Recorded SARS-CoV-2 mRNA (cutscgf-iwzz-zbpto) vax 09/11/21 Recorded SARS-CoV-2 (COVID-19) mRNA BNT-162b2 [...] Refills, Maintenance, 12/23/22 6:33:00 EDT, [facility], 165, cm, 11/22/22 14:37:00 EDT, Height Start Date: 12/23/22 Status: Ordered azelastine nasal 0.15% spray 2 sprays, Nares, Both, 2 times a day, PRN for allergy symptoms, # 30 mL, 2 Refills, Maintenance, 02/01/21 14:05:00 EDT, [place], [facility]/pharmacy #1111, Partial fill upon patient request [...] 01/07/23 16:09:00 EDT, Route to Pharmacy Electronically, [facility]/pharmacy #1111, Partial fill upon patient request [...] 100 in lifetime) entered on: 04/22/22 Sex Laboratory * Event Display: Non Lab Results Authored Date: Patient Care team information Care Team Personnel Name: Michelle Aleman NP Position: S PCO Associate Professional Member Role: PCP Address: Address: [address] [place] [address]- Care Team Related Persons Name: DOMINIQUE VILLALPANDO Address: home [address] [address]
--- OUTSIDE RECORDS SUMMARY | 2023-08-14 08:21 | XMS_ITS | Continuity of Care Document ---
Author Organization [facility] Address [address] [place] [address]- Care Team Providers Care Press Operator Helper Name Role Phone Ash OR ASSISTANT, Michelle Briseno Primary Care Physician Encounter [facility] Date(s): 12/26/22 - 01/25/23 [facility] [address] [place] [address] [place] Allergies, Adverse Reactions, Alerts No Known [...] influenza virus vaccine, inactivated 12/29/08 Give n [id number]-[id number] 12y+ bivalent booster vax 12/31/21 Recorded SARS-CoV-2 mRNA (xxckcnq-hnmm-lqnuk) vax 09/11/21 Recorded SARS-CoV-2 (COVID-19) mRNA BNT-162b2 [...] Refills, Maintenance, 12/23/22 6:33:00 EDT, [facility], 165, cm, 11/22/22 14:37:00 EDT, Height Start Date: 12/23/22 Status: Ordered azelastine nasal 0.15% spray 2 sprays, Nares, Both, 2 times a day, PRN for allergy symptoms, # 30 mL, 2 Refills, Maintenance, 02/01/21 14:05:00 EDT, [place], [facility]/pharmacy #1111, Partial fill upon patient [...] 01/07/23 16:09:00 EDT, Route to Pharmacy Electronically, [facility]/pharmacy #1111, Partial fill upon patient [...] Associate Professional Member Role: PCP Address: Address: [address] [place] [address]- Care Team Related Persons Name: DOMINIQUE VILLALPANDO Address: home [address] [place] [address]
--- OUTSIDE RECORDS SUMMARY | 2023-08-14 08:21 | XMS_ITS | Continuity of Care Document ---
Author Organization [facility] Address [address] [place] [address]- Care Team Providers Care Fingerer Name Role Phone Ash CIVIL LITIGATION ATTORNEY, Michelle Briseno Primary Care Physician Encounter [facility] Date(s): 11/15/22 - 12/15/22 [facility] [employer] Adult [facility] [address] [place] [address]- [place] Allergies, Adverse Reactions, Alerts No Known [...] Wan to Standard Admin Times 2Admin Note: [id number] VIS SHEET GIVEN 3Admin Note: 10/17/10 vis [...] mL, 2 Refills, Maintenance, 02/01/21 14:05:00 EDT, [place], [facility]/pharmacy #1111, Partial fill upon patient request [...] each, 1 Refills, Maintenance, 11/18/22 16:47:00 EDT, [facility], Partial fill upon patient request if the prescription is for a schedule II opioid drug., 165, cm, ... Start Date: 11/18/22 Stop Date: 01/17/23 Status: [...] each, 0 Refills, Maintenance, 03/26/22 7:16:00 EST, [facility]/pharmacy #1111, Partial fill upon patient request if the prescription is for a schedule II opioid drug.,1 film Topically Every 72 hours, 165, cm, 03/26/22... Start Date: 12/13/22 Status: Ordered Problem List Condition Confirmation Course [...] Associate Professional Member Role: PCP Address: Address: [address] [place] [address]- Care Team Related Persons Name: DOMINIQUE VILLALPANDO Address: home [address] [place] [address]
--- OUTSIDE RECORDS SUMMARY | 2023-08-14 08:21 | XMS_ITS | Continuity of Care Document ---
Author Organization [facility] [employer] [employer] [facility] Address [address] [place] [address]- Care Team Providers Care Rope Making Machine Operator Name Role Phone Ash DIRECTOR ELECTRICAL ENGINEERING, Michelle Briseno Primary Care Physician Encounter [facility] Date(s): 04/10/23 - 05/10/23 [facility] [address] [place] [address]- [place] Allergies, Adverse Reactions, Alerts No Known [...] influenza virus vaccine, inactivated 12/29/08 Give n [id number] 12y+ bivalent booster vax 12/31/21 Recorded SARS-CoV-2 mRNA (dqzucxr-zqiw-ojein) vax 09/11/21 Recorded SARS-CoV-2 (COVID-19) mRNA BNT-162b2 [...] tablet, 1 Refills, Maintenance, 04/11/23 16:19:00 EST, [facility]/pharmacy #1111, 165, cm, 04/11/23 15:42:00 EST, Height Start Date: 04/11/23 Status: Ordered azelastine nasal 0.15% spray 2 sprays, Nares, Both, 2 times a day, PRN for allergy symptoms, # 30 mL, 2 Refills, Maintenance, 02/01/21 14:05:00 EDT, [place], [facility]/pharmacy #1111, Partial fill upon [...] 04/11/23 16:18:00 EST, Route to Pharmacy Electronically, [facility]/pharmacy #1111, Partial fill upon [...] Professional Member Role: PCP Address: Address: [address] [place] [address] [place] Care Team Related Persons Name: DOMINIQUE VILLALPANDO Address: home [address] [place] [address]
--- OUTSIDE RECORDS SUMMARY | 2023-08-14 08:21 | XMS_ITS | Continuity of Care Document ---
[facility] Organization [facility] Address [address] [place] [address]- Care Team Providers Care Product Planner Name Role Phone Ash SODDER, Michelle Briseno Primary Care Physician Encounter [facility] Date(s): 11/15/22 - 12/15/22 [facility] [address] [place] [address]- [place] Allergies, Adverse Reactions, Alerts No Known [...] Wan to Standard Admin Times 2Admin Note: [id number] VIS SHEET GIVEN 3Admin Note: 10/17/10 vis [...] mL, 2 Refills, Maintenance, 02/01/21 14:05:00 EDT, [place], [facility]/pharmacy #[id number], Partial fill upon patient request [...] each, 1 Refills, Maintenance, 11/18/22 16:47:00 EDT, [id number], Partial fill upon patient request if the [...] each, 0 Refills, Maintenance, 03/26/22 7:16:00 EST, [facility]/pharmacy #[id number], Partial fill upon patient request [...] Associate Professional Member Role: PCP Address: Address: [address] [place] [address]- Care Team Related Persons Name: DOMINIQUE VILLALPANDO Address: home [address] [place] [address]
--- OUTSIDE RECORDS SUMMARY | 2023-08-14 08:21 | XMS_ITS | Continuity of Care Document ---
Author Organization [facility] Address [address] [place] [address]- Care Team Providers Care Blood Donor Recruiter Supervisor Name Role Phone Gregory BLANCO, Everardo Mccarthy Primary Care Physician Encounter [facility] Date(s): 07/27/19 - 08/06/19 [facility] [address] [place] [address]- [facility] Attending Physician: AdmPresley juarez Admitting Physician: AdmtrPresley Referring Physician: Admtr, Ar8 Allergies, Adverse Reactions, Alerts No Known Medication Allergies Substance Reaction Severity Status Other Environmental Allergy pollen Intermittent Active Immunizations Given and Recorded Vaccine Date Status Refusal Reason influenza virus vaccine, inactivated 02/22/15 Give n influenza virus vaccine, inactivated 12/29/08 Give n pneumococcal 23-valent vaccine 1 07/19/14 Given Influenza Vaccine (oldterm) 2 03/18/12 Given Influenza Inactive (IM) (oldterm) 3 05/15/11 Given tetanus/diphtheria/pertussis, acel(Tdap) 4 05/15/11 Given Hepatitis B Vaccine (old term) 09/21/07 Given Hepatitis A Vaccine (oldterm) 09/21/07 Given 1Early/Late Reason: Wan to Standard Admin Times 2Admin Note: [id number] VIS SHEET GIVEN 3Admin Note: 10/17/10 vis [...] 05/06/18 12:02:04 EST, Route to Pharmacy Electronically, [id number], [id number] Start Date: 05/06/18 Stop Date: [...]
--- OUTSIDE RECORDS SUMMARY | 2023-08-14 08:21 | XMS_ITS | Continuity of Care Document ---
Author Organization [facility] Address [address] [place] [address]- Care Team Providers Care Sales And Merchandising Associate Name Role Phone Ash PARHAM, Michelle Briseno Primary Care Physician Encounter [facility] Date(s): 11/11/22 - 12/11/[address] [address] Allergies, Adverse Reactions, Alerts No Known Medication [...] Wan to Standard Admin Times 2Admin Note: [id number] VIS SHEET GIVEN 3Admin Note: 10/17/10 vis [...] mL, 2 Refills, Maintenance, 02/01/21 14:05:00 EDT, [place], [facility]/pharmacy #1111, Partial fill upon patient request if [...] each, 1 Refills, Maintenance, 11/18/22 16:47:00 EDT, [facility] 6137, Partial fill upon patient request if the prescription is for a schedule II opioid drug., 165sara, ... Start Date: 11/18/22 Stop Date: 01/17/23 [...] 0 Refills, Maintenance, 03/26/22 7:16:00 EST, [facility]/pharmacy #1111, Partial fill upon patient request if [...] Team Personnel Name: Michelle Aleman NP Position: [facility] PCO Associate Professional Member Role: PCP Address: Address: [address] [place] [address]- Care Team Related Persons Name: DOMINIQUE VILLALPANDO Address: home [address] [place] [address]
--- OUTSIDE RECORDS SUMMARY | 2023-08-14 08:21 | XMS_ITS | Continuity of Care Document ---
Author Organization [facility] Address [address] [place] [address]- Care Team Providers Care Paratransit Operator Name Role Phone Ash AGRICULTURAL PLOW OPERATOR, Michelle Briseno Primary Care Physician Encounter [facility] Date(s): 03/30/23 - 04/29/23 [facility] [address] [place] [address]- [place] Allergies, Adverse Reactions, Alerts No Known [...] influenza virus vaccine, inactivated 12/29/08 Give n [id number] 12y+ bivalent booster vax 12/31/21 Recorded SARS-CoV-2 mRNA (zcqwbrh-qjst-txjki) vax 09/11/21 Recorded SARS-CoV-2 (COVID-19) mRNA BNT-162b2 [...] tablet, 1 Refills, Maintenance, 04/11/23 16:19:00 EST, [facility]/pharmacy #1111, 165, cm, 04/11/23 15:42:00 EST, Height Start Date: 04/11/23 Status: Ordered azelastine nasal 0.15% spray 2 sprays, Nares, Both, 2 times a day, PRN for allergy symptoms, # 30 mL, 2 Refills, Maintenance, 02/01/21 14:05:00 EDT, [place], [facility]/pharmacy #1111, Partial fill upon patient request if [...] 04/11/23 16:18:00 EST, Route to Pharmacy Electronically, [facility]/pharmacy #1111, Partial fill upon patient request if [...] Associate Professional Member Role: PCP Address: Address: [address] [place] [address]- [place] Care Team Related Persons Name: DOMINIQUE VILLALPANDO Address: home [address] [place] [address]
--- OUTSIDE RECORDS SUMMARY | 2023-08-14 08:21 | XMS_ITS | Continuity of Care Document ---
Author Organization [facility] Address [address] [place] [address]- Care Team Providers Care Cabinet Mounter Name Role Phone Ash DENTAL PRACTITIONER, Michelle M Primary Care Physician Encounter [facility] [id number] Date(s): 12/25/22 - 02/07/23 [facility] [address] [place] [address]- Attending Physician: Angelo Eaton MD Allergies, Adverse Reactions, Alerts No Known Medication [...] influenza virus vaccine, inactivated 12/29/08 Give n [id number] 12y+ bivalent booster vax 12/31/21 Recorded SARS-CoV-2 mRNA (ofxwaof-zgmz-xrius) vax 09/11/21 Recorded SARS-CoV-2 (COVID-19) mRNA BNT-162b2 [...] Refills, Maintenance, 12/23/22 6:33:00 EDT, [id number], 165, cm, 11/22/22 14:37:00 EDT, Height Start Date: 12/23/22 Status: Ordered azelastine nasal 0.15% spray 2 sprays, Nares, Both, 2 times a day, PRN for allergy symptoms, # 30 mL, 2 Refills, Maintenance, 02/01/21 14:05:00 EDT, [place], [facility]/pharmacy #1111, Partial fill upon patient request [...] 01/07/23 16:09:00 EDT, Route to Pharmacy Electronically, [facility]/pharmacy #1111, Partial fill upon patient request [...] Associate Professional Member Role: PCP Address: Address: [address] [place] [address]- Care Team Related Persons Name: DOMINIQUE VILLALPANDO Address: home [address] [place] [address]
--- OUTSIDE RECORDS SUMMARY | 2023-08-14 08:21 | XMS_ITS | Continuity of Care Document ---
Author Organization [facility] Address [address] [place] [address]- Care Team Providers Care Data Collection Specialist Name Role Phone Ash WAITER/WAITRESS HEAD, Michelle Briseno Primary Care Physician Encounter [facility] Date(s): 09/23/22 - 10/23/22 [facility] [address] [place] [address]- [place] Allergies, Adverse Reactions, Alerts No Known [...] Wan to Standard Admin Times 2Admin Note: [id number] VIS SHEET GIVEN 3Admin Note: 10/17/10 vis [...] tablet, 3 Refills, Maintenance, 09/25/22 16:22:00 EDT, [facility]/pharmacy #1111, Partial fill upon patient request if the prescription is for a schedule II opioid drug., 165, cm, 09/24... Start Date: 09/25/22 Stop Date: 01/23/23 Status: Ordered azelastine nasal 0.15% spray 2 sprays, Nares, Both, 2 times a day, PRN for allergy symptoms, # 30 mL, 2 Refills, Maintenance, 02/01/21 14:05:00 EDT, [place], [facility], Partial fill upon patient request [...] Ash PARHAM, Michelle Briseno Position: [facility] PCO Associate Professional Member Role: PCP Address: Address: [address] [place] [address]- Care Team Related Persons Name: DOMINIQUE VILLALPANDO Address: home [address] [place] [address]
--- OUTSIDE RECORDS SUMMARY | 2023-08-14 08:21 | XMS_ITS | Continuity of Care Document ---
Author Organization [facility] Address [address] [place] [address]- Care Team Providers Care Irrigation District Manager Name Role Phone Michelle Aleman NP Primary Care Physician Encounter [facility] Date(s): 10/30/20 - 11/06/20 [facility] Adult [address] [address]- Encounter Diagnosis Annual physical exam(Discharge Diagnosis) - 10/30/20 NAFLD (nonalcoholic fatty liver disease)(Discharge Diagnosis) - 10/30/20 Obesity(Discharge Diagnosis) - 10/30/20 Snoring(Discharge Diagnosis) - 10/30/20 Attending Physician: Michelle Aleman NP Allergies, Adverse [...] Wan to Standard Admin Times 2Admin Note: [id number] VIS SHEET GIVEN 3Admin Note: 10/17/10 vis [...] 05/06/18 12:02:04 EST, Route to Pharmacy Electronically, [id number], [facility]/pharmacy #1111 Start Date: 05/06/18 [...] Dates Health Status Cl inical Service Informant Annual physical exam Discharge Diagnosis 10/30/20 NAFLD (nonalcoholic fatty liver disease) Discharge Diagnosis 10/30/20 Obesity Discharge Diagnosis 10/30/20 Snoring Discharge Diagnosis 10/30/20 Vital Signs Most recent to oldest [Reference Range]: 1 Height 165 cm (10/30/20 8:09 AM) Weight 88.7 kg (10/30/20 8:09 AM) Oxygen Saturation [94-100 %] 98 % (10/30/20 8:09 AM) Pulse Rate [55-90 bpm] 66 bpm (10/30/20 8:09 AM) Body Mass Index [18.5-24.99] 32.58 *>HHI* (10/30/20 8:09 AM) Blood Pressure [90-138/55-84 mm Hg] 126/ 78mm Hg (10/30/20 8:09 AM) Respiratory Rate [16-30 br/min] 16 br/mi n (10/30/20 8:09 AM) Temperature [96.8-100.4 DegF] 98.0 DegF (10/30/20 8:09 AM) Blood pressure sites Arm, left (10/30/20 8:09 AM) Temperature Route Temporal (10/30/20 8:09 AM) Weight Obtained Via Standing scale (10/30/20 8:09 AM) Social History Social History Type Response Smoking Status Never (less than 100 in lifetime); Tobacco user in household: No entered on: 07/31/18 Sex
--- OUTSIDE RECORDS SUMMARY | 2023-08-14 08:21 | XMS_ITS | Continuity of Care Document ---
Author Organization [facility] Address [address] [id number]- Care Team Providers Care Bump Grader Operator Name Role Phone Ash BALANCING MACHINE OPERATOR, Michelle M Primary Care Physician Encounter [facility] Date(s): 03/26/22 - 04/02/22 [facility] Adult [address] [address]- [place] Encounter Diagnosis Annual physical exam(Discharge Diagnosis) - 03/26/22 NAFLD (nonalcoholic fatty liver disease)(Discharge Diagnosis) - 03/26/22 Obesity (BMI 30.0-34.9)(Discharge Diagnosis) - 03/26/22 Paroxysmal atrial fibrillation(Discharge Diagnosis) - 03/26/22 Attending Physician: Alcides Raman MD Allergies, Adverse Reactions, Alerts No Known [...] Wan to Standard Admin Times 2Admin Note: [id number] VIS SHEET GIVEN 3Admin Note: 10/17/10 vis [...] mL, 2 Refills, Maintenance, 02/01/21 14:05:00 EDT, [place], [facility]/pharmacy #1111, Partial fill upon patient request if [...] Service Informant Annual physical exam Discharge Diagnosis 03/26/22 NAFLD (nonalcoholic fatty liver disease) Discharge Diagnosis 03/26/22 Obesity (BMI 30.0-34.9) Discharge Diagnosis 03/26/22 Paroxysmal atrial fibrillation Discharge Diagnosis 03/26/22 Vital Signs Most recent to oldest [Reference Range]: 1 2 Height 165 cm (03/26/22 7:31 AM) 165 cm (03/26/22 7:09 AM) Weight 94.5 kg (03/26/22 7:09 AM) Oxygen Saturation [94-100 %] 99 % (03/26/22 7:09 AM) Pulse Rate [55-90 bpm] 67 bpm (03/26/22 7:09 AM) Body Mass Index [18.5-24.99 kg/m2] 34.71 kg/m2 *>HHI* (03/26/22 7:09 AM) Blood Pressure [90-138/55-84 mm Hg] 132/ 82mm Hg (03/26/22 7:31 AM) 144/82mm Hg *H* (03/26/22 7:09 AM) Temperature [96.8-100.4 DegF] 97.2 DegF (03/26/22 7:09 AM) Mode of Delivery (Oxygen) Room air (03/26/22 7:09 AM) Blood pressure sites Arm, left (03/26/22 7:31 AM) Arm, left (03/26/22 7:09 AM) Temperature Route Temporal (03/26/22 7:09 AM) Weight Obtained Via Standing scale (03/26/22 7:09 AM) Social History Social History Type Response Smoking Status Never (less than 100 in lifetime); Tobacco user in household: No entered on: 07/31/18 Sex Note * Tatiana Farias [place]: PERFORM, SIGN, VERIFY Event Display: Patient Education/Instruction Authored Date: [id number] [facility] *BMP Quab Adlt Med Bltn Clinical Summary Name MERISSA VILLALPANDO Age 56 Years 1965 PCP Ash PARHAM, Michelle Briseno PCP Visit Date 03/26/2022 07:03:00 Additional Instructions: Scheduled Appointments?? Future Appointments ?*[facility]Produce Team Member??Cln [address] ?[place],??[place],??[address] ?Phone:??--?Fax:??-- ?Appt. Date:??04/03/2022?12:00 PM ?Scheduled Provider:??Peter BLANCO, Nisha Figueredo ?[facility] ?[address]??[place],??[place],??[address] ?Phone:??[phone]?Fax:??-- ?Appt. Date:??04/16/2022?1:00 PM ?Scheduled Provider:??[facility] 3D Mammo Rm 2 ?*[facility] ?[address]??[place],??[place],??[address] ?Phone:??--?Fax:??-- ?Appt. Date:??04/16/2022?1:30 PM ?Scheduled Provider:??Dario PARHAM , Yanira Molina Follow-Up Instructions ?? With: Address: When: Michelle Aleman [address] [place] [address], [address] [place] [address] Business (1) Comments: f/u with me in 6 months Diagnosis Encounter for general adult medical examination without abnormal findings; Fatty (change of) liver,not elsewhere classified; Obesity, unspecified; Paroxysmal atrial fibrillation Medications: Please continue your medications until treatment is completed or stopped by your provider. Discuss any questions related to medications with your provider. Medications to Continue with No Changes [facility], [address] [place], [place] [id number], [phone] Scopolamine (Transderm-Scop 1 mg/72 hr transdermal film, extended release) 1 Film Topically every 72 hours. Refills: 0. Next Dose: These medications were not printed [...] (MiraLax) 17 gram Oral Daily. Next Dose: No Longer Take the Following Medications Loratadine (Claritin 10 mg oral tablet) 1 tab(s) Oral Daily for 14 Days. Refills: 0. nirmatrelvir-ritonavir (Paxlovid 150 mg-100 mg oral tablet) Take 300 mg of Nirmatrelvir (two 150 mgtablets) with 100 mg of Ritonavir (one tablet) twice daily for 5 days. Take all 3 tablets together.Refills: 0. Allergy Info:?? No Known Medication Allergies; Other Environmental Allergy Medications Given This Visit Future Orders ?Comprehensive Metabolic Panel? Order Date:03/26/22?- Complete by?03/26/22 ?Thyroid Panel? Order Date:03/26/22?- Complete on or after?03/26/22 ?Lipid Panel? Order Date:03/26/22?- Complete by?03/26/22 Vital Signs Height 165 cm Weight 94.5 kg BMI 34.71 kg/m2 Blood Pressure 132 mm Hg/82 mm Hg Temperature 97.2 DegF Pulse Rate 67 bpm Respiratory Rate 02 Sat Mode of Delivery 99 %/Room air You can now view a summary of your hospital visit from the comfort of your home through a free online portal called [employer]. [employer] is a website that allows you to securely view your medical information including discharge summary, medications and follow-up visits. ??You can alsosend a secure electronic message to your doctor???s office to request appointments, renew medications or just ask a question. You can enroll at [email or web address] or register during your next office [...] primary care provider, you may find a [facility] provider by calling [facility] at [phone]. For information about the plan of care including goals and instructions for your diagnosis, please see the patient education orders section of this document. Patient Education Materials?? The content of this educational material or handout may have been modified, supplemented, or adapted from its original content and format to support your individualized medical care. Prevention Guidelines, Women Ages 50 to 64 Screening tests and vaccines are an important part of managing your health. Health counseling is essential, too. Below are guidelines for these, for women ages 50 to 64. Talk with your healthcare provider to make sure you???re up to date on what you need. Screening Who needs it How often Type 2 diabetes or prediabetes All adults beginning at age 45 and adults without symptoms at any age who are overweight or obese and have 1 or more additional risk factors for diabetes. At?? least every 3 years Alcohol misuse All women in this age group At routine exams Blood pressure All women in this age group Every 2 years if your blood pressure is less than 120/80 mm Hg; yearly if your systolic blood pressure is 120 to 139 mm Hg, or your diastolic blood pressure reading is 80 to 89 mm Hg Breast cancer All women in this age group Yearly mammogram and clinical breast exam1 Cervical cancer All women in this age group, except women who have had a complete hysterectomy Pap test every 3 years or Pap test with human papillomavirus (HPV) test every 5 years Chlamydia Women at increased risk for infection At routine exams Colorectal cancer All women in this age group Flexible sigmoidoscopy every 5 years, or colonoscopy every 10 years, or double- contrast barium enema every 5 years; yearly fecal occult blood test or fecal immunochemical test; or a stool DNA test asoften as your health care provider advises; talk with your health care provider about which tests are best for you Depression All women in this age group At routine exams Gonorrhea Sexually active women at increased risk for infection At routine exams Hepatitis C Anyone at increased risk; 1 time for those born between 1945 and 1965 At routine exams High cholesterol or triglycerides All women in this age group who are at risk for coronary artery disease At least every 5 years HIV All women At routine exams Lung cancer Adults age 55 to 80 who have smoked Yearly screening in smokers with 30 pack-year history of smoking or who quit within 15 years Obesity All women in this age group At routine exams Osteoporosis Women who are postmenopausal Ask your healthcare provider Syphilis Women at increased risk for infection ??? talk with your healthcare provider At routine exams Tuberculosis Women at increased risk for infection ??? talk with your healthcare provider Ask your healthcare provider Vision All women in this age group Ask your healthcare provider Vaccine Who needs it How often Chickenpox (varicella) All women in this age group who have no record of this infection or vaccine 2 doses; the second dose should be given at least 4 weeks after the first dose Hepatitis A Women at increased risk for infection ??? talk with your healthcare provider 2 doses given at least 6 months apart Hepatitis B Women at increased risk for infection ??? talk with your healthcare provider 3 doses over 6 months; second dose should be given 1 month after the first dose; the third dose should be given at least 2 months after the second dose and at least 4 months after the first dose Haemophilus influenzaeType B (HIB) Women at increased risk for infection ??? talk with your healthcare provider 1 to 3 doses Influenza (flu) All women in this age group Once a year Measles, mumps, rubella (MMR) Women in this age group through their late 50s who have no record of these infections or vaccines 1 dose Meningococcal Women at increased risk for infection ??? talk with your healthcare provider 1 or more doses Pneumococcal conjugate vaccine (PCV13) and pneumococcal polysaccharide vaccine (PPSV23) Women at increased risk for infection ??? talk with your healthcare provider PCV13: 1 dose ages 19 to 65 (protects against 13 types of pneumococcal bacteria) PPSV23: 1 to 2 doses through age 64, or 1 dose at 65 or older (protects against 23 types of pneumococcal bacteria) Tetanus/diphtheria/pertussis (Td/Tdap) booster All women in this age group Td every 10 years, or a one-time dose of Tdap instead of a Td booster after age 18, then Td every 10 years Zoster All women ages 60 and older 1 dose Counseling Who needs it How often BRCA gene mutation testing for breast and ovarian cancer susceptibility Women with increased risk for having gene mutation When your risk is known Breast cancer and chemoprevention Women at high risk for breast cancer When your risk is known Diet and exercise Women who are overweight or obese When diagnosed, and then at routine exams Sexually transmitted infection prevention Women at increased risk for infection ??? talk with your healthcare provider At routine exams Use of daily aspirin Women ages 55 and up in this age group who are at risk for cardiovascular health problems such as stroke When your risk is known Use of tobacco and the health effects it can cause All women in this age group Every exam 1American Cancer Society ?? 4823-8593 [employer]. [address] [place] [address], [place] [address]. All rights reserved. This information is not intended as a substitute for professional medical care. Always follow your healthcare professional's instructions. Patient Care team information Care Team Personnel Name: Ash PARHAM, Michelle Briseno Position: S PCO Associate Professional Member Role: PCP Address: Address: [address] [place] [address]- Care Team Related Persons Name: DOMINIQUE VILLALPANDO Address: home [address] [place] [address]
--- OUTSIDE RECORDS SUMMARY | 2023-08-14 08:21 | XMS_ITS | Continuity of Care Document ---
Author Organization [facility] Address [address] [place] [address]- Care Team Providers Care Extrusion Die Coordinator Name Role Phone Ash CRIMINAL JUSTICE SOCIAL WORKER, Michelle Briseno Primary Care Physician Encounter [facility] Date(s): 12/25/22 - 01/24/23 [facility] [address] [place] [address]- [place] Allergies, Adverse Reactions, Alerts No Known [...] influenza virus vaccine, inactivated 12/29/08 Give n [id number] 12y+ bivalent booster vax 12/31/21 Recorded SARS-CoV-2 mRNA (cqzoado-nmio-eflij) vax 09/11/21 Recorded SARS-CoV-2 (COVID-19) mRNA BNT-162b2 [...] Refills, Maintenance, 12/23/22 6:33:00 EDT[id number], 165, cm, 11/22/22 14:37:00 EDT, Height Start Date: 12/23/22 Status: Ordered azelastine nasal 0.15% spray 2 sprays, Nares, Both, 2 times a day, PRN for allergy symptoms, # 30 mL, 2 Refills, Maintenance, 02/01/21 14:05:00 EDT, [place], [facility]/pharmacy #[id number], Partial fill upon patient [...] 01/07/23 16:09:00 EDT, Route to Pharmacy Electronically, [facility]/pharmacy #1111, Partial fill upon patient [...] Associate Professional Member Role: PCP Address: Address: [address] [place] [address]- Care Team Related Persons Name: DOMINIQUE VILLALPANDO Address: home [address] [place] [address]
--- OUTSIDE RECORDS SUMMARY | 2023-08-14 08:21 | XMS_ITS | Continuity of Care Document ---
Author Organization [facility] Address [address] [place] [address]- Care Team Providers Care Aniline Press Worker Name Role Phone Ash PARHAM, Michelle Briseno Primary Care Physician Encounter [facility] NBR [id number] Date(s): 06/29/20 - 07/06/20 [facility] [address] [place] [address]- Attending Physician: Nati Roberts MD Allergies, Adverse Reactions, Alerts No Known [...] Wan to Standard Admin Times 2Admin Note: [id number] VIS SHEET GIVEN 3Admin Note: 10/17/10 vis [...] 05/06/18 12:02:04 EST, Route to Pharmacy Electronically, [id number], [id number] Start Date: 05/06/18 Stop Date: [...] 7:00(Confirmed) 01/16/10 Active Vitamin D deficiency(Confirmed) Active Vital Signs Most recent to oldest [Reference Range]: 1 Height 165 cm (06/29/20 3:27 PM) Social History Social History Type Response Smoking Status Never (less than 100 in lifetime); Tobacco user in household: No entered on: 07/31/18 Sex
--- OUTSIDE RECORDS SUMMARY | 2023-08-14 08:21 | XMS_ITS | Continuity of Care Document ---
Author Organization [facility] Address [address] [place] [address]- Care Team Providers Care Memory Care Director Name Role Phone Ash PARHAM, Michelle Briseno Primary Care Physician Encounter [facility] Date(s): 04/03/22 - 05/03/[address] [address] Attending Physician: AdmPresley juarez Admitting Physician: AdmtrPresley [...] Wan to Standard Admin Times 2Admin Note: [id number] VIS SHEET GIVEN 3Admin Note: 10/17/10 vis [...] mL, 2 Refills, Maintenance, 02/01/21 14:05:00 EDT, [place], [facility], Partial fill upon patient request [...] Associate Professional Member Role: PCP Address: Address: [address] [place] [address]- Care Team Related Persons Name: DOMINIQUE VILLALPANDO Address: home [address] [place] [address]
--- OUTSIDE RECORDS SUMMARY | 2023-08-14 08:21 | XMS_ITS | Continuity of Care Document ---
Author Organization [facility] Address [address] [place] [address]- Care Team Providers Care Yardage Control Clerk Name Role Phone Michelle Aleman NP Primary Care Physician Encounter [facility] Date(s): 12/31/22 - 01/07/23 [facility] [address] [address]- [place] Encounter Diagnosis Uncontrolled hypertension(Discharge Diagnosis) - 12/31/22 Severe obesity (BMI 35.0-39.9) with comorbidity(Discharge Diagnosis) - 12/31/22 Attending Physician: Michelle Aleman NP Allergies, Adverse [...] Wan to Standard Admin Times 2Admin Note: [id number] VIS SHEET GIVEN 3Admin Note: 10/17/10 vis sheet given 4Admin Note: 03/01/08 vis sheet given Medications aspirin 81 mg oral tablet, chewable = 81 mg, By Mouth, Daily, 0 Refills, Maintenance, 07/19/14 12:23:35, Chew Tablet Start Date: 07/19/14 Status: Ordered atorvastatin 10 mg oral tablet 1 tablet, By Mouth, Daily in PM, # 90 tablet, 1 Refills, Maintenance, 12/23/22 6:33:00 EDT, [facility], [facility], cm, 11/22/22 14:37:00 EDT, Height Start Date: 12/23/22 Status: Ordered azelastine nasal 0.15% spray 2 sprays, Nares, Both, 2 times a day, PRN for allergy symptoms, # 30 mL, 2 Refills, Maintenance, 02/01/21 14:05:00 EDT, [place], [facility]/pharmacy #1111, Partial fill upon patient request if [...] 01/07/23 16:09:00 EDT, Route to Pharmacy Electronically, [facility]/pharmacy #1111, Partial fill upon patient request if [...] each, 0 Refills, Maintenance, 03/26/22 7:16:00 EST, [facility]/pharmacy #1111, Partial fill upon patient request if [...] Effective Dates Health Status Clinical Service Informant Uncontrolled hypertension Discharge Diagnosis 12/31/22 Severe obesity (BMI 35.0-39.9) with comorbidity Discharge Diagnosis 12/31/22 Vital Signs Most recent to oldest [Reference Range]: 1 2 Height 165 cm (12/31/22 4:32 PM) 165 cm (12/31/22 4:04 PM) Weight 100.2 kg (12/31/22 4:04 PM) Oxygen Saturation [94-100 %] 98 % (12/31/22 4:04 PM) Pulse Rate [55-90 bpm] 68 bpm (12/31/22 4:04 PM) Body Mass Index [18.5-24.99 kg/m2] 36.8 kg/m2 *>HHI* (12/31/22 4:04 PM) Blood Pressure [90-138/55-84 mm Hg] 140/ 88mm Hg *H* (12/31/22 4:32 PM) 160/100mm Hg *H* (12/31/22 4:04 PM) Respiratory Rate [16-30 br/min] 15 br/mi n *L* (12/31/22 4:04 PM) Mode of Delivery (Oxygen) Room air (12/31/22 4:04 PM) Blood pressure sites Arm, left (12/31/22 4:32 PM) Arm, left (12/31/22 4:04 PM) Temperature Route Temporal (12/31/22 4:04 PM) Weight Obtained Via Standing scale (12/31/22 4:04 PM) Social History Social History Type Response Smoking Status Never (less than 100 in lifetime) entered on: 04/22/22 Sex Note * Sonysandoval Merna: PERFORM, SIGN, VERIFY Event Display: Patient Education/Instruction Authored Date: [id number] [facility] *BMP Quab Adlt Med Bltn Clinical Summary Name MERISSA VILLALPANDO Age 57 Years 1965 PCP Michelle Aleman NP PCP Visit Date 12/31/2022 15:57:00 Additional Instructions: Scheduled Appointments?? Future Appointments ?*BMP??Quab??Adlt??Med??Bltn ?Phone:??--?Fax:??-- ?Appt. Date:??01/07/2023?2:00 PM ?Scheduled Provider:??[facility] Clinical Visit [place] ?*BMP??Quab??Adlt??Med??Bltn ?[address]??[place],??[place],??[address] ?Phone:??--?Fax:??-- ?Appt. Date:??03/31/2023?7:00 AM ?Scheduled Provider:??Michelle Aleman NP. ?[facility]??RAD ?[address]??[place],??[place],??[address] ?Phone:??[phone]?Fax:??-- ?Appt. Date:??04/18/2023?10:30 AM ?Scheduled Provider:??[facility] 3D Mammo Rm 2 Follow-Up Instructions ?? With: Address: When: Michelle Aleman [address] [place] [address], [address] [place] [address] Business (1) Comments: F/u with nurse therese in 1-2 weeks. Diagnosis Essential (primary) hypertension; Morbid (severe) obesity due to excess calories Medications: Please continue your medications until treatment is completed or stopped by your provider. Discuss any questions related to medications with your provider. New Medications [id number] [address], [place] [id number], [phone] Benazepril (benazepril 10 mg oral tablet) 1 tab(s) Oral Daily for 30 Days. Refills: 6. Next Dose: Durable Medical Equipment (Home Blood Pressure Monitor) Check BP daily. 1-2 hours after taking medication. Call if >140/90.. Refills: 0. Next Dose: Medications to Continue with No Changes These medications were not printed or sent to your pharmacy Aspirin (aspirin 81 mg oral tablet, chewable) 81 Milligram Oral Daily. Next Dose: Atorvastatin (atorvastatin 10 mg oral tablet) 1 tab(s) Oral Daily in PM. Refills: 1. Next Dose: Azelastine Nasal (azelastine nasal 0.15% [...] every 72 hours. Refills: 0. Next Dose: No Longer Take the Following Medications semaglutide (Ozempic 2 mg/3 mL (0.25 mg or 0.5 mg dose) subcutaneous solution) 0.25 Milligram Subcutaneous Infusion every week for 30 Days. rotate injection sites. Refills: 1. Allergy Info:?? No Known Medication Allergies; Other Environmental Allergy Medications Given This Visit Future Orders ?No future orders Vital Signs Height 165 cm Weight 100.2 kg BMI 36.8 kg/m2 Blood Pressure 140 mm Hg/88 mm Hg Temperature Pulse Rate 68 bpm Respiratory Rate 15 br/min 02 Sat Mode of Delivery 98 %/Room air You can now view a summary of your hospital visit from the comfort of your home through a free online portal called [employer]. [employer] is a website that allows you to securely view your medical information including discharge summary, medications and follow-up visits. ??You can alsosend a secure electronic message to your doctor???s office to request appointments, renew medications or just ask a question. You can enroll at [email or web address] or register during your next office [...] care provider, you may find a [facility] provider by calling [facility] [employer] [facility] at [phone]. [facility], in keeping with [facility] guidance, no longer requires face masks for [...] format to support your individualized medical care. Finding Your [place] Weight Most of the people in magazines and on TV are far slimmer than average, yet this is the ???ideal?? that many people aim for. Before you decide that you won???t be happy until you get down to a certain number of pounds, consider: ??? Your age.??You??probably wish you could get back to your college weight. But normal changes in metabolism and hormone levels that occur with aging can make this more difficult. ??? Your gender. In general, men have more muscle and heavier bones than women, which means that healthy men usually weigh more than healthy women of the same height. ??? Your current weight. If you are very heavy, focus on losing a smaller amount (such as 10 percent of your body weight). Losing just 5 to 10 pounds can improve your health. Your body fat percentage A pound of muscle weighs the same as a pound of fat, but it takes up less space. Think of a trainedathlete and a ???couch potato.?? Even though they may be the same height and weight, the athlete looks fitter, is healthier, and probably wears a smaller size of clothing. If you are muscular, a body fat test may be a more accurate measure of your ideal weight than the bathroom scale. Talk to your healthcare provider, who can help you set appropriate goals for yourself. Body mass index (BMI) Your body mass index is a number calculated from your weight and height. It is a fairly reliable indivactor of body fatness for most people. To calculate your BMI, see this BMI calculator from the CDC: http://www.cdc.gov/healthyweight/assessing/bmi/adult_bmi/english_bmi_calculator/ bmi_calculator.html ?? [employer]. [address] [place] [address]. All rights reserved. This information is not intended as a substitute for professional medical care. Always follow your healthcare professional's instructions. Out of Control High Blood Pressure (Established) Your blood pressure was unusually high today. This can occur if you???ve missed doses of your bloodpressure medicine. Or it can happen if you are taking other medicines. These include some asthma inhalers, decongestants, diet pills, and street drugs like cocaine and amphetamine. Other causes include: ??? Weight gain ??? More salt in your diet ??? Smoking ??? Caffeine Your blood pressure can also rise if you are emotionally upset or in intense pain. It may go back to normal after a period of rest. A blood pressure reading is made up of 2 numbers. There is a top number over a bottom number. The top number is the systolic pressure. The bottom number is the diastolic pressure. A normal blood pressure is less than 120 over less than 80. High blood pressure (hypertension) is when the top number is 140 or higher. Or it is when the bottom number is 90 or higher. To be high blood pressure, the numbers must be higher when tested over a period of time. The blood pressures between normal and hypertension are called prehypertension. Home care It???s important to take steps to lower your blood pressure. If you are taking blood pressure medicine, the guidelines below may help you need less or no medicines in the future. ??? Begin a weight-loss program if you are overweight. ??? Cut back on the amount of salt in your diet: ??? Avoid high-salt foods like olives, pickles, smoked meats, and salted potato chips. ??? Don???t add salt to your food at the table. ??? Use only small amounts of salt when cooking. ??? Begin an exercise program. Talk with your health care provider about what exercise program is best for you. It doesn???t have to be difficult. Even brisk walking for 20 minutes??3 times a week kathy good form of exercise. ??? Avoid medicines that have heart stimulants in them. This includes many cold and sinus decongestant pills and sprays, as well as diet pills. Check the warnings about hypertension on the label. Stimulants such as amphetamine or cocaine could be lethal for someone with hypertension. Never take these. ??? Limit how much caffeine you drink. Or switch to noncaffeinated beverages. ??? Stop smoking. If you are a long-time smoker, this can be hard. Enroll in a stop-smoking programto make it more likely that you will succeed. Talk with your provider about ways to quit. ??? Learn how to handle stress better. This is an important part of any program to lower blood pressure. Learn ways to relax. These include meditation, yoga, and biofeedback. ??? If medicines were prescribed, take them exactly as directed. Missing doses may cause your bloodpressure to get out of control. ??? Consider buying an automatic blood pressure machine. These are available at many drugstores. Use this to monitor your blood pressure. Report the results to your provider. Follow-up care Regular visits to your own health care provider for blood pressure and medicine checks are an important part of your care. Make a follow-up appointment as directed. When to seek medical advice Call your health care provider right away if any of these occur: ??? Chest, arm, shoulder, neck, or upper back pain ??? Shortness of breath ??? Severe headache ??? Throbbing or rushing sound in the ears ??? Nosebleed ??? Extreme drowsiness, confusion, or fainting ??? Dizziness or dizziness with spinning sensation (vertigo) ??? Weakness in an arm or leg or on one side of the face ??? Difficulty speaking or seeing ?? 6067-1602 [employer]. [address] [place] [address]. All rights reserved. This information is not intended as a substitute for professional medical care. Always follow your healthcare professional's instructions. Patient Care team information Care Team Personnel Name: Ash PARHAM, Michelle Briseno Position: [facility] Associate Professional Member Role: PCP Address: Address: [address] [place] [address]- Care Team Related Persons Name: DOMINIQUE VILLALPANDO Address: home [address] [place] [address]
--- OUTSIDE RECORDS SUMMARY | 2023-08-14 08:21 | XMS_ITS | Continuity of Care Document ---
[facility] Address [address] [place] [address]- Care Team Providers Care Sorting Supervisor Name Role Phone Ash VALVE MECHANIC, Michelle M Primary Care Physician Encounter [facility] Date(s): 01/07/23 - 01/14/23 [facility] [employer] [facility] [address] [place] [address]- Attending Physician: Angelo Eaton MD Allergies, Adverse [...] Wan to Standard Admin Times 2Admin Note: [id number] VIS SHEET GIVEN 3Admin Note: 10/17/10 vis sheet given 4Admin Note: 03/01/08 vis sheet given Medications aspirin 81 mg oral tablet, chewable = 81 mg, By Mouth, Daily, 0 Refills, Maintenance, 07/19/14 12:23:35, Chew Tablet Start Date: 07/19/14 Status: Ordered atorvastatin 10 mg oral tablet 1 tablet, By Mouth, Daily in PM, # 90 tablet, 1 Refills, Maintenance, 12/23/22 6:33:00 EDT, [facility], 165, cm, 11/22/22 14:37:00 EDT, Height Start Date: 12/23/22 Status: Ordered azelastine nasal 0.15% spray 2 sprays, Nares, Both, 2 times a day, PRN for allergy symptoms, # 30 mL, 2 Refills, Maintenance, 02/01/21 14:05:00 EDT, [place], [facility], Partial fill upon patient request [...] Associate Professional Member Role: PCP Address: Address: [address] [place] [address]- Care Team Related Persons Name: DOMINIQUE VILLALPANDO Address: home [address] [place] [address]
--- OUTSIDE RECORDS SUMMARY | 2023-08-14 08:21 | XMS_ITS | Continuity of Care Document ---
Author Organization [facility] Address [address] [place] [address]- Care Team Providers Care Twisting Department End Finder Name Role Phone Gregory BLANCO, Everardo Mccarthy Primary Care Physician Encounter [facility] Date(s): 10/20/19 - 11/19/19 [facility] [address] [place] [address]- [facility] Allergies, Adverse Reactions, Alerts No Known Medication [...] 05/06/18 12:02:04 EST, Route to Pharmacy Electronically, [id number], [id number] Start Date: 05/06/18 Stop Date: [...]
--- OUTSIDE RECORDS SUMMARY | 2023-08-14 08:21 | XMS_ITS | Continuity of Care Document ---
Author Organization [facility] Address [address] [place] [address]- Care Team Providers Care Industrial Millwright Name Role Phone Michelle Aleman NP Primary Care Physician [place] [facility] Date(s): 03/01/22 - 03/31/22 [facility] [address] [place] [address]- Attending Physician: Not on Staff, Attending MD Referring Physician: Michelle Aleman NP Allergies, [...] Wan to Standard Admin Times 2Admin Note: [id number] VIS SHEET GIVEN 3Admin Note: 10/17/10 vis [...] mL, 2 Refills, Maintenance, 02/01/21 14:05:00 EDT, [place], [facility], Partial fill upon patient request [...] Associate Professional Member Role: PCP Address: Address: [address] [place] [address] Team Related Persons Name: DOMINIQUE VILLALPANDO Address: home [address] [place] [address]
--- OUTSIDE RECORDS SUMMARY | 2023-08-14 08:21 | XMS_ITS | Continuity of Care Document ---
[facility] Address [address] [place] [address]- Care Team Providers Care Care Program Director Name Role Phone Ash QUARTZ CUTTER, Michelle Briseno Primary Care Physician Encounter [facility] Date(s): 11/09/20 - 12/09/20 [facility] [address] [place] [address]- [place] Allergies, Adverse Reactions, Alerts No Known [...] Wan to Standard Admin Times 2Admin Note: [id number] VIS SHEET GIVEN 3Admin Note: 10/17/10 vis [...] 05/06/18 12:02:04 EST, Route to Pharmacy Electronically, [id number], [facility] Start Date: 05/06/18 Stop Date: [...]
--- OUTSIDE RECORDS SUMMARY | 2023-08-14 08:21 | XMS_ITS | Continuity of Care Document ---
Author Organization [facility] Address [address] [place] [address]- Care Team Providers Care Director Industrial Relations Name Role Phone Ash PARHAM, Michelle M Primary Care Physician Encounter [facility] Date(s): 11/01/22 - 12/01/22 [facility] [address] [place] [address]- Allergies, Adverse Reactions, Alerts No Known Medication [...] Wan to Standard Admin Times 2Admin Note: [id number] VIS SHEET GIVEN 3Admin Note: 10/17/10 vis [...] tablet, 3 Refills, Maintenance, 09/25/22 16:22:00 EDT, [facility]/pharmacy #1111, Partial fill upon patient request if the prescription is for a schedule II opioid drug., 165sara, 09/24... Start Date: 09/25/22 Stop Date: 01/23/23 Status: Ordered azelastine nasal 0.15% spray 2 sprays, Nares, Both, 2 times a day, PRN for allergy symptoms, # 30 mL, 2 Refills, Maintenance, 02/01/21 14:05:00 EDT, [place], [facility]/pharmacy #1111, Partial fill upon patient request [...] each, 1 Refills, Maintenance, 11/18/22 16:47:00 EDT, [facility], Partial fill upon patient request if the [...] each, 0 Refills, Maintenance, 03/26/22 7:16:00 EST, [facility]/pharmacy #1111, Partial fill upon patient request if the prescription is for a schedule II opioid drug.,1 film Topically Every 72 hours, 165, sara, 03/26/22... Start Date: 03/26/22 Status: Ordered Problem [...] Associate Professional Member Role: PCP Address: Address: [address] [place] [address]- Care Team Related Persons Name: DOMINIQUE VILLALPANDO Address: home [address] [place] [address]
--- OUTSIDE RECORDS SUMMARY | 2023-08-14 08:21 | XMS_ITS | Continuity of Care Document ---
Author Organization [facility] Address [address] [place] [address]- Care Team Providers Care Content Architect Name Role Phone Ash ELECTRIC STOVE MECHANIC, Michelle Briseno Primary Care Physician Encounter [facility] Date(s): 12/25/22 - 01/24/23 [facility] [employer] [facility] [address] [place] [address]- [place] Allergies, Adverse Reactions, Alerts No Known [...] influenza virus vaccine, inactivated 12/29/08 Give n [id number] 12y+ bivalent booster vax 12/31/21 Recorded SARS-CoV-2 mRNA ([id number]) vax 09/11/21 Recorded SARS-CoV-2 (COVID-19) mRNA BNT-162b2 [...] Refills, Maintenance, 12/23/22 6:33:00 EDT, [facility], 165, cm, 11/22/22 14:37:00 EDT, Height Start Date: 12/23/22 Status: Ordered azelastine nasal 0.15% spray 2 sprays, Nares, Both, 2 times a day, PRN for allergy symptoms, # 30 mL, 2 Refills, Maintenance, 02/01/21 14:05:00 EDT, [place], [facility]/pharmacy #1111, Partial fill upon patient request if [...] 16:09:00 EDT, Route to Pharmacy Electronically, [facility]/pharmacy #1111, Partial fill upon patient request if [...] Professional Member Role: PCP Address: Address: [address] [place] [address]- [place] Care Team Related Persons Name: DOMINIQUE VILLALPANDO Address: home [address] [place] [address]
--- OUTSIDE RECORDS SUMMARY | 2023-08-14 08:21 | XMS_ITS | Continuity of Care Document ---
Author Organization [facility] Address [address] [place] [address]- Care Team Providers Care Prisoner Classification Interviewer Name Role Phone Ash EXCEPTIONAL STUDENT EDUCATION AIDE, Michelle M Primary Care Physician Encounter [facility] Date(s): 06/06/23 - 07/06/23 [facility] [address] [place] [address]- Attending Physician: Presley Priest Admitting Physician: Presley Priest Referring Physician: Presley Priest Allergies, Adverse Reactions, Alerts No Known Medication [...] influenza virus vaccine, inactivated 12/29/08 Give n [id number] 12y+ bivalent booster vax 12/31/21 Recorded SARS-CoV-2 mRNA (lzvdeuv-[id number]) vax 09/11/21 Recorded SARS-CoV-2 (COVID-19) mRNA BNT-162b2 [...] mL, 2 Refills, Maintenance, 02/01/21 14:05:00 EDT, [place], [facility], Partial fill upon patient request [...] 04/11/23 16:18:00 EST, Route to Pharmacy Electronically, [facility]/pharmacy #1111, Partial fill upon patient [...] Associate Professional Member Role: PCP Address: Address: [address] [place] [address]- Care Team Related Persons Name: DOMINIQUE VILLALPANDO Address: [address] [place] [address]
--- OUTSIDE RECORDS SUMMARY | 2023-08-14 08:21 | XMS_ITS | Continuity of Care Document ---
Author Organization [facility] [employer] [facility] Address [address] [place] [address]- Care Team Providers Care Seed Laboratory Technician Name Role Phone Ash PRODUCT MARKETING MANAGER, Michelle Briseno Primary Care Physician Encounter [facility] [id number] Date(s): 06/21/20 - 07/21/20 [facility] [employer] [facility] [address] [place] [address]- Allergies, Adverse Reactions, Alerts No Known Medication [...] Wan to Standard Admin Times 2Admin Note: [id number] VIS SHEET GIVEN 3Admin Note: 10/17/10 vis [...] 05/06/18 12:02:04 EST, Route to Pharmacy Electronically, [id number], [facility] Start Date: 05/06/18 Stop Date: [...]
--- OUTSIDE RECORDS SUMMARY | 2023-08-14 08:21 | XMS_ITS | Continuity of Care Document ---
Author Organization [facility] Address [address] [place] [address]- Care Team Providers Care Quality Assurance Lab Technician Name Role Phone Ash PARHAM, Michelle Briseno Primary Care Physician Encounter [facility] [id number] Date(s): 01/05/21 - 04/19/21 [facility] [address] [place] [address] Attending Physician: Martha Tesfaye MD Admitting Physician: Martha Tesfaye MD Referring Physician: Michelle Aleman NP Allergies, [...] Wan to Standard Admin Times 2Admin Note: [id number] VIS SHEET GIVEN 3Admin Note: 10/17/10 vis [...] mL, 2 Refills, Maintenance, 02/01/21 14:05:00 EDT, [place], [facility]/pharmacy #[id number], Partial fill upon patient request if the prescription is for a schedule II opioid drug., 2 sprays Nares,... Start Date: 02/01/21 Status: Ordered Claritin 10 mg oral tablet 10 mg, 1, tablet, By Mouth, Daily, # 14 tablet, Refills 0, Tot. Refills 0, Maintenance, 05/06/18 12:02:04 EST, Route to Pharmacy Electronically, [id number], [facility]/pharmacy #1111 Start Date: 05/06/18 Stop Date: 05/20/18 [...]
--- OUTSIDE RECORDS SUMMARY | 2023-08-14 08:21 | XMS_ITS | Continuity of Care Document ---
Author Organization [facility] Address [address] [place] [address]- Care Team Providers Care Lithograph Press Operator Tinware Name Role Phone Ash PARHAM, Michelle Briseno Primary Care Physician Encounter [facility] Date(s): 01/15/22 - 02/14/22 [facility] [address] [place] [id number] Attending Physician: Presley Priest Admitting Physician: AdmPresley juarez Referring Physician: Admtr, [...] Wan to Standard Admin Times 2Admin Note: [id number] VIS SHEET GIVEN 3Admin Note: 10/17/10 vis [...] mL, 2 Refills, Maintenance, 02/01/21 14:05:00 EDT, [place], [facility], Partial fill upon patient request if the prescription is for a schedule II opioid drug., 2 sprays Nares,... Start Date: 02/01/21 Status: Ordered Claritin 10 mg oral tablet 10 mg, 1, tablet, By Mouth, Daily, # 14 tablet, Refills 0, Tot. Refills 0, Maintenance, 05/06/18 12:02:04 EST, Route to Pharmacy Electronically, [id number], [id number] Start Date: 05/06/18 Stop Date: [...] Name: Ash PARHAM, Michelle Briseno Address: Address: [address] [place] [id number] [[email or web address]]
--- OUTSIDE RECORDS SUMMARY | 2023-08-14 08:21 | XMS_ITS | Continuity of Care Document ---
Author Organization [facility] Address [address] [place] [address]- Care Team Providers Care Maintenance Construction Helper Name Role Phone Ash PARHAM, Michelle Briseno Primary Care Physician [place] [facility] Date(s): 07/10/23 - 08/09/23 [facility] [address] [id number] Attending Physician: Presley Priest Admitting Physician: AdmPresley juarez Referring Physician: [id number] Allergies, Adverse Reactions, Alerts No Known Medication [...] influenza virus vaccine, inactivated 12/29/08 Give n [id number] 12y+ bivalent booster vax 12/31/21 Recorded SARS-CoV-2 mRNA ([id number]) vax 09/11/21 Recorded SARS-CoV-2 (COVID-19) mRNA BNT-162b2 [...] tablet, 1 Refills, Maintenance, 04/11/23 16:19:00 EST, [facility]/pharmacy #[id number], 165, cm, 04/11/23 15:42:00 EST, Height Start Date: 04/11/23 Status: Ordered azelastine nasal 0.15% spray 2 sprays, Nares, Both, 2 times a day, PRN for allergy symptoms, # 30 mL, 2 Refills, Maintenance, 02/01/21 14:05:00 EDT, [place], [facility]/pharmacy #[id number], Partial fill upon patient request [...] 04/11/23 16:18:00 EST, Route to Pharmacy Electronically, [facility]/pharmacy #[id number], Partial fill upon patient request [...] Team Personnel Name: Michelle Aleman NP Position: [facility] PCO Associate Professional Member Role: PCP Address: Address: [address] [place] [address]- Care Team Related Persons Name: DOMINIQUE VILLALPANDO Address: home [address] [place] [address]
--- NOTE | 2023-08-14 11:15 | A.OFFVIS_ITS ---
VS Expanded 08/14/23 11:18 Height 5 ft 5 in Weight 199 lb BMI 33.1 Body Fat % 43.2 Body Fat Mass 85.9 Fat Free Mass 113 Visceral Fat Rating 15 Body Water % 39 Body Water Mass 77.6 Basal Metabolic Rate/Score 1,477 Intake Visit Reasons: TV Pre Op LSG 08/28/23 Allergies environmental allergies Allergy (Verified 08/14/23 11:17) Nasal congestion Medication List - Last Reconciled 08/14/23 by Reilly García MD aspirin (Adult Aspirin Regimen) 81 mg PO DAILY atorvastatin 10 mg PO DAILY cholecalciferol (vitamin D3) 125 mcg PO DAILY 90 days cyanocobalamin (vitamin B-12) 500 mcg PO DAILY 90 days hydrochlorothiazide 25 mg PO DAILY omeprazole magnesium (Prilosec OTC) 20 mg PO DAILY ondansetron 4 mg PO Q12H pantoprazole 40 mg PO DAILY polyethylene glycol 3350 (Miralax) 17 grams PO DAILY sucralfate 10 mL PO BID HPI HPI TV Pre Op LSG 08/28/23: Details: Start time: 2.30pm, End time: 3pm ?I spent 25 minutes speaking with the patient on the phone plus an additional 5 minutes reviewing and updating records for a total of 30 minutes HPI Comments Details: Overall weight loss: 22lbs, or 9.95% TBWL Is doing 2 Celebrate Rebuild protein shakes (1 scoop each in 8oz almond milk), 1.5 Celebrate protein bars and one meal (8 forks of protein and 8 forks of salad or vegetables) Exercise: Peloton x5/wk [facility] Medical History (Updated 08/14/23 @ 12:20 by Adina Mantilla RN) Lobular carcinoma in situ (LCIS) of right breast Hiatal hernia Elevated liver enzymes Fatty liver Sleep apnea GERD (gastroesophageal reflux disease) A-fib Hyperlipidemia Surgical History S/P eye surgery S/P hysterectomy S/P section Social History Are you a primary child care coordinator to a significant other at home: No Do you presently have visiting nurse or other home services: No Patient Tobacco Use Status: Never used Tobacco Physical Exam Vital Signs: BMI result Body Mass Index 33.1 Telehealth Telehealth Telehealth Platform: Telephone Location of provider rendering services: practice address Location of patient: address on file Patient Identification confirmed using: Name, : Yes Telehealth method: voice only Patient verbally consented to treatment: Yes Patient verbally consented to billing insurance company: Yes Patient informed of any privacy concerns related to visit: Yes Minutes spent on Phone/Video with Pt.: 30 Assessment & Plan Assessment & Plan (1) Obesity (BMI 30-39.9): Code(s): E66.9 - Obesity, unspecified Category: Medical Plan: 1. Plan for lap sleeve gastrectomy including upper GI endoscopy. All tests has been completed and reviewed and the patient is cleared for the surgery.? If diaphragmatic or ventral hernias are present at time of surgery, these will be repaired laparoscopically as well. Risks and complications were discussed in detail including possible conversion to an open procedure, anastomotic leak, bleeding requiring transfusion, small bowel obstruction, , DVT and pulmonary embolism, cardiac, or pulmonary complications, as intermodal truck driver complications such as anastomotic ulcer, insufficient weight loss and vitamin deficiencies. I emphasized the importance of close follow-up, adherence to instructions and good communication. So far she has proven to be an excellent communicator and very compliant with all our directions accomplishing a great weight loss. I believe that she is an excellent candidate and she is ready. 2. Preop prescriptions were provided and explained the purpose of each one. Need to be purchased preop. Start Pantoprazole now as you get it from the pharmacy, 1 pill per day. Sucralfate and Zofran are for after surgery as needed. 3. Bowel prep: please do 7 packets ?of Miralax mixing each one with a an 8oz glass of water, crystal light, gatorade zero, or propel ?on 08/26/23 and the same amount on 08/27/23. The Miralax you begin with one packet at a time in 8oz water or crystal light, gatorade zero, or propel ?as early in the day as you can and you do them back to back until you finish them. Continue the protein shakes during ?the bowel prep. 4. Needs to purchase 1oz medicine cups . 5. Needs to purchase Children's liquid Tylenol for postop pain control. 6. She needs to stop the aspirin as of tomorrow 08/14/23. Avoid motrin, Advil, Aleve, Ibuprofen, Naproxyn. Tylenol is OK. 7. She needs to purchase the Celebrate 4:1 protein shakes from the hospital's gift shop. 8. Will do basic preop blood work-up any day between Friday08/18/23 and Friday08/22/23 fasting for 12 hours and is scheduled to see the Anesthesiologist prior to the day of surgery. 9. Please start as of tomorrow to check your blood pressure daily in the morning. If blood pressure is: Below 120/70: do not take the Hydrochlorothiazide 121/71 to 135/85: take HALF pill of the Hydrochlorothiazide Over 136/86:? take whole pill of the Hydrochlorothiazide 10. Importance of adherence to postop folllow-up and recommendations was underscored and she understands that. 11. Stop food and bars as of Friday08/18/23 and continue with 3 Celebrate REBUILD protein shakes (ONE scoop EACH in 8oz almond milk) at ?7am-9am, 10am-12pm and 1pm-3pm AND TWO more Celebrate REBUILD protein shakes with TWO scoops EACH in 8oz of almond milk at 4pm-6pm and 7pm-9pm 12. No soups, broths or V8 13. The patient's medical history has been reviewed and they are considered low risk for post op DVT and therefore DVT prophylaxis is not considered necessary. Travel after surgery was reviewed. The patient has not disclosed any travel plans during the first 30 days after surgery and they have been advised that within the first 30 days after surgery any bus, plane, train or car travel over 2 hours in duration is contraindicated due to the possibility of developing blood clots from immobility. Any travel, needs to include periods of ambulation of 10 minutes in duration every 2 hours.? Patient was instructed to discuss any plans for travel during this period with their bariatric surgeon. 14. Use your CPAP daily and bring it to the hospital with your mask 15. Please take at the day of surgery the following medications: Only the hydrochlorothiazide per the parameters I gave you above 16. Stop any control pills and don't use them for one month after surgery 17. Absolutely no smoking or vaping, or marijuana until the surgery and for at least the first 4 weeks. Only nicotine patches are allowed. 18. Send me weight measurements on Friday08/16/24 and 08/24/23 and then on 08/28/23, the day of surgery before you go to the hospital. 19. Avoid any steroids by mouth for any reason. Let me know if someone prescribes them to you 20. These instructions supersede anything else you read in the handbook, anything you watched in videos or classes or you were told by any other provider. If there is any conflict, you follow the above instructions?
[2023-08-14 11:18] VITALS: BMI 33.1
== END 2023-08-14 17:03 | disposition home or self-care (01) ==
LOC: HO.HBS 08:07
PROVIDERS: PCP Nurse Practitioner Family; Visit Provider Surgery
DX: E66.9 Obesity, unspecified (principal)
CPT/HCPCS: 99499

== ENCOUNTER → 2023-08-14 08:07 | Outpatient (BNVA) | payer OTHER, SELFPAY | PROVIDERS: PCP Nurse Practitioner Family; Visit Provider Surgery ==

== ENCOUNTER 2023-08-22 08:08 | Outpatient (REF) | payer OTHER, SELFPAY ==
[2023-08-22 08:30] LABS: MANUAL DIFF FLAG NO
[2023-08-22 08:58] LABS: Basophils Percent Auto 0.4 % (0-2); Eosinophils Absolute Auto 0.1 X10*3/uL (0.0-0.4); Eosinophils Percent Auto 1.5 % (0-4); Hemoglobin 13.8 g/dl (12.0-16.0); Imm Gran Abs Auto 0.01 X10*3/uL (0.00-0.03); Imm Gran Pct Auto 0.2 % (0.0-0.4); Lymphocytes Absolute Auto 1.8 X10*3/uL (1.2-4.9); Lymphocytes Percent Auto 33.8 % (20-40); Mean Corpuscular HGB Conc 32.9 g/dl (31.0-35.0); Mean Corpuscular Hemoglobin 29.7 pg (27.0-33.0); Mean Corpuscular Volume 90.5 fL (80.0-98.0); Mean Platelet Volume 10.1 fL (9.4-12.3); Monocytes Absolute Auto 0.5 X10*3/uL (0.1-1.2); Monocytes Percent Auto 8.8 % (2-11); Neutrophils Absolute Auto 2.9 x10*3/uL (2.0-8.3); Neutrophils Percent Auto 55.3 % (45-73); Platelet Count 241 X10*3/uL (160-400); Red Blood Count 4.64 X10*6/uL (4.20-5.50); Red Cell Distribution Width 12.9 % (11.0-16.0); White Blood Count 5.2 X10*3/uL (4.8-10.8)
[2023-08-22 09:01] LABS: Prothrombin Time 12.1 SEC (11.1-13.3)
[2023-08-22 09:04] LABS: Partial Thromboplastin Time 35.1 SEC (26.0-36.8)
[2023-08-22 09:06] LABS: Estimated Average Glucose 111 mg/dL; Hemoglobin A1c % 5.5 % (<6.0)
[2023-08-22 09:38] LABS: Alanine Aminotransferase 60 U/L (0-31); Albumin Level 4.3 g/dL (3.5-5.0); Alkaline Phosphatase 66 U/L (39-117); Anion Gap 15 (12-20); Aspartate Amino Transferase 24 U/L (5-31); Blood Urea Nitrogen 19 mg/dL (9-16); C Reactive Protein 0.33 mg/dL (< or = 0.50); Calcium 10.1 mg/dL (8.4-10.2); Carbon Dioxide 26 mmol/L (22-29); Chloride 107 mmol/L (96-108); Cholesterol 119 mg/dL (<200); Estimated Glomerular Filt Rate > 60; Glucose Random 86 mg/dL (60-115); HDL Cholesterol 43 mg/dL (>40); LDL Cholesterol Calculated 62 mg/dL (<100); Potassium 4.2 mmol/L (3.3-5.1); Sodium 144 mmol/L (135-145); Total Protein 6.5 g/dL (6.5-8.0); Triglycerides 71 mg/dL (<150)
[2023-08-22 09:58] LABS: Insulin 4 uU/mL (2-29); TSH reflex Free T4 1.77 uIU/mL (0.32-4.0)
== END 2023-08-22 08:09 | disposition home or self-care (01) ==
LOC: HO.LAB 08:08
PROVIDERS: PCP Nurse Practitioner Family; Visit Provider Surgery
DX: E66.9 Obesity, unspecified (principal); G47.33 Obstructive sleep apnea (adult) (pediatric); I10 Essential (primary) hypertension; E78.00 Pure hypercholesterolemia, unspecified
CPT/HCPCS: 36415; 80053; 80061; 83036; 83525; 84443; 85025; 85610; 85730; 86140

== ENCOUNTER 2023-08-28 05:58 | Inpatient (IN) | payer OTHER, SELFPAY ==
[2023-08-14 12:38] VITALS: BMI 32.9
--- NOTE | 2023-08-26 14:09 | P.CONAN_ITS ---
Documented by User: Lindsay Esposito NP 08/27/23 12:27 HPI - Anesthesia Eval Consult details Narrative: 58yo F for Gastrectomy Sleeve- EGD, possible diaphragmatic hernia, possible ventral hernia, possible open Afib x1 2015 - per pt, converted in ER with rx. No recurrence since. No OAC, asa 81mg daily. Followed cardiology for short time with full cardiac w/u. (Echo 2014 ok on chart). PMFSH Active Problems Active Problems: All Active Problems BMI 33.0-33.9,adult (Acute) BMI 36.0-36.9,adult (Acute) Adjustment disorder, unspecified (Acute) Abnormal EKG (Acute) Hypercholesterolemia (Acute) HTN (hypertension) (Acute) SPARKLE (obstructive sleep apnea) (Acute) Obesity (BMI 30-39.9) (Acute) GERD (gastroesophageal reflux disease) (Acute) Hyperlipidemia (Acute) Past Medical History Medical History Lobular carcinoma in situ (LCIS) of right breast Hiatal hernia Elevated liver enzymes Fatty liver Sleep apnea GERD (gastroesophageal reflux disease) A-fib Hyperlipidemia Surgical History Surgical History (Updated 08/28/23 @ 06:40 by Krysta Tesfaye RN) Hx of tonsillectomy Hx of colonoscopy S/P eye surgery S/P hysterectomy S/P section Social History Social History Are you a primary home health care social worker to a significant other at home: No Do you presently have visiting nurse or other home services: No Patient Tobacco Use Status: Never used Tobacco Use of substances other than those prescribed or required for medical reasons: No Have you been hit, kicked, punched, or otherwise hurt by someone within the past year? If so, by whom?: No Are you DNR?: No Advance Directives: No Advance Directives Information Provided: No Advance Directives on File: No Recently lost weight without trying: No Eating poorly because of decreased appetite: No Nutrition Risks: No Nutritional Risk Patient : No : No Poor oral hygiene: Yes (crown bottom right) Meds Allergies Allergy/AdvReac Type Severity Reaction Status Date / Time environmental allergies Allergy Nasal Verified 08/28/23 06:38 congestion Home Medications ?Medication ?Instructions ?Recorded ?Confirmed ?Last Taken ?Type aspirin 81 mg tablet,delayed 81 mg PO DAILY 04/09/23 08/14/23 08/13/23 History release (Adult Aspirin Regimen) atorvastatin 10 mg tablet 10 mg PO BEDTIME 04/09/23 08/14/23 Unknown History hydrochlorothiazide 25 mg tablet 25 mg PO DAILY 04/09/23 08/14/23 Unknown History Exam Height,Weight and Vital Signs: Height 5 ft 5 in Weight 89.811 kg Pertinent Lab Results Pertinent Lab Results: Laboratory Tests 08/22/23 08:22 Blood Type O Negative Antibody Screen NEGATIVE Laboratory Tests 08/22/23 08:29 WBC 5.2 Hgb 13.8 Hct 42.0 Plt Count 241 Sodium 144 Potassium 4.2 Chloride 107 Carbon Dioxide 26 BUN 19 H Creatinine 0.88 Laboratory Tests 08/22/23 08:29 PT 12.1 INR 1.0 APTT 35.1 Hemoglobin A1c % 5.5 Calcium 10.1 Total Bilirubin 1.0 AST 24 ALT 60 H Alkaline Phosphatase 66 C-Reactive Protein 0.33 Total Protein 6.5 Albumin 4.3 Triglycerides 71 Cholesterol 119 LDL Cholesterol, Calc 62 HDL Cholesterol 43 Narrative Narrative: EKG 05/2023 Vent. Rate : 074 BPM Atrial Rate : 074 BPM P-R Int : 140 ms QRS Dur : 076 ms QT Int : 376 ms P-R-T Axes : -05 -11 -07 degrees QTc Int : 417 ms Normal sinus rhythm cannot exclude old Inferior infarct , age undetermined Abnormal ECG No previous ECGs available Exercise Stress Test 06/2023 Protocol: REJI Max HR: 166 BPM 102% of Pred: 162 BPM Max BP: 170/078 mmHG Max Work Load: 7.8 METS . Exercise stress test exercise 6 min 32 sec of Reji protocol achieving 101% MPHR, with mild SOB, no chest discomfort, without arrhythmias, with normotensive response exercise, without EKG changes. Text reviewed with Dr. Frank. Assessment and Plan Assessment Anesthesia Assessment: Chart Reviewed Documented by User: Florida Chambers MD 08/28/23 07:31 [facility] Past Medical History Medical History Lobular carcinoma in situ (LCIS) of right breast Hiatal hernia Elevated liver enzymes Fatty liver Sleep apnea GERD (gastroesophageal reflux disease) A-fib Hyperlipidemia Family History Family history of problems with anesthesia: No Surgical History Surgical History (Updated 08/28/23 @ 06:40 by Krysta Tesfaye, RN) Hx of tonsillectomy Hx of colonoscopy S/P eye surgery S/P hysterectomy S/P section History of Problems with Anesthesia: No Social History Social History Are you a primary home health care social worker to a significant other at home: No Do you presently have visiting nurse or other home services: No Patient Tobacco Use Status: Never used Tobacco Use of substances other than those prescribed or required for medical reasons: No Have you been hit, kicked, punched, or otherwise hurt by someone within the past year? If so, by whom?: No Are you DNR?: No Advance Directives: No Advance Directives Information Provided: No Advance Directives on File: No Recently lost weight without trying: No Eating poorly because of decreased appetite: No Nutrition Risks: No Nutritional Risk Patient : No : No Poor oral hygiene: Yes (crown bottom right) Meds Allergies Allergy/AdvReac Type Severity Reaction Status Date / Time environmental allergies Allergy Nasal Verified 08/28/23 06:38 congestion Home Medications ?Medication ?Instructions ?Recorded ?Confirmed ?Last Taken ?Type aspirin 81 mg tablet,delayed 81 mg PO DAILY 04/09/23 08/14/23 08/13/23 History release (Adult Aspirin Regimen) atorvastatin 10 mg tablet 10 mg PO BEDTIME 04/09/23 08/14/23 Unknown History hydrochlorothiazide 25 mg tablet 25 mg PO DAILY 04/09/23 08/14/23 Unknown History Exam Airway Mallampati Class: III TM Dist: >3cm Neck ROM: Full Assessment and Plan Assessment Anesthesia Assessment: Anesthesia Plan Discussed Final Anesthetic Review Family History of Problems with Anesthesia: No History of Problems with Anesthesia: No NPO: Yes ASA Class: III Final Preanesthetic Review: No Changes in Pt Med Stat, Meds/Allgs Chart Reviewed, Consent Obtained/Reviewed and Anes Risks/Benef Reviewed Patient Risk: Intermediate Anesthetic Plan Anesthetic Plan: GA Disposition: Standard PACU
[2023-08-28] VITALS (10 sets, daily range): BP systolic 142–159; BP diastolic 67–87; PULSE 69–96; RESP 12–20; TEMP 36.1–36.9; O2SAT 95–100; BMI 32.3
--- OUTSIDE RECORDS SUMMARY | 2023-08-28 06:03 | XMS_ITS | Continuity of Care Document ---
Author Organization [facility] Address [address] [place] [address]- Care Team Providers Care Automotive Warranty Administrator Name Role Phone Ash PARHAM, Michelle Briseno Primary Care Physician Encounter [facility] Date(s): 11/18/22 - 11/25/22 [facility] Adult [address] [address]- [place] Encounter Diagnosis NAFLD (nonalcoholic fatty liver disease)(Discharge Diagnosis) - 11/18/22 Severe obesity (BMI 35.0-39.9) with comorbidity(Discharge Diagnosis) - 11/18/22 Attending Physician: Michelle Aleman NP Allergies, Adverse [...] Wan to Standard Admin Times 2Admin Note: [id number] VIS SHEET GIVEN 3Admin Note: 10/17/10 vis [...] tablet, 3 Refills, Maintenance, 09/25/22 16:22:00 EDT, [facility]/pharmacy #1111, Partial fill upon patient request if the prescription is for a schedule II opioid drug., 165, cm, .. Start Date: 09/25/22 Stop Date: 01/23/23 Status: Ordered azelastine nasal 0.15% spray 2 sprays, Nares, Both, 2 times a day, PRN for allergy symptoms, # 30 mL, 2 Refills, Maintenance, 02/01/21 14:05:00 EDT, [place], [facility]/pharmacy #1111, Partial fill upon patient request [...] each, 1 Refills, Maintenance, 11/18/22 16:47:00 EDT, [id number], Partial fill upon patient request if the [...] NAFLD (nonalcoholic fatty liver disease) Discharge Diagnosis 11/18/22 Severe obesity (BMI 35.0-39.9) with comorbidity Discharge Diagnosis 11/18/22 Vital Signs Most recent to oldest [Reference Range]: 1 Height 165 cm (11/18/22 4:10 PM) Weight 99.0 kg (11/18/22 4:10 PM) Oxygen Saturation [94-100 %] 98 % (11/18/22 4:10 PM) Pulse Rate [55-90 bpm] 68 bpm (11/18/22 4:10 PM) Body Mass Index [18.5-24.99 kg/m2] 36.36 kg/m2 *>HHI* (11/18/22 4:10 PM) Blood Pressure [90-138/55-84 mm Hg] 120/ 70mm Hg (11/18/22 4:10 PM) Respiratory Rate [16-30 br/min] 15 br/mi n *L* (11/18/22 4:10 PM) Temperature [96.8-100.4 DegF] 97.2 DegF (11/18/22 4:10 PM) Mode of Delivery (Oxygen) Room air (11/18/22 4:10 PM) Temperature Route Temporal (11/18/22 4:10 PM) Weight Obtained Via Standing scale (11/18/22 4:10 PM) Social History Social History Type Response Smoking Status Never (less than 100 in lifetime) entered on: 04/22/22 Sex Note * Merna Velazquez: PERFORM, SIGN, VERIFY Event Display: Patient Education/Instruction Authored Date: [id number] [facility] *BMP Quab Adlt Med Bltn Clinical Summary Name MERISSA VILLALPANDO Age 57 Years 1965 PCP Ash PERSONNEL RESEARCH SCIENTIST, Michelle M PCP Visit Date 11/18/2022 15:57:00 Additional Instructions: Scheduled Appointments?? Future Appointments ?*[facility] ?[address]??[place],??[place],??[address] ?Phone:??--?Fax:??-- ?Appt. Date:??11/22/2022?2:30 PM ?Scheduled Provider:??Dario PERSONNEL RESEARCH SCIENTIST , Yanira L ?*[facility] ?[address] ?[place],??[place],??[address] ?Phone:??--?Fax:??-- ?Appt. Date:??11/26/2022?11:30 AM ?Scheduled Provider:??Peter BLANCO, Nisha Figueredo ?*[facility] ?[address]??[place],??[place],??[address] ?Phone:??--?Fax:??-- ?Appt. Date:??12/31/2022?4:00 PM ?Scheduled Provider:??Ash PARHAM , Michelle Briseno. ?[facility] ?[address]??[place],??[place],??[address] ?Phone:??[phone]?Fax:??-- ?Appt. Date:??04/18/2023?10:30 AM ?Scheduled Provider:??[facility] 3D Mammo Rm 2 Follow-Up Instructions ?? With: Address: When: Michelle Aleman [address] [facility], [address] [place], [place] [id number] Business (1) Comments: f/u with me in 1 month. Diagnosis Fatty (change of) liver, not elsewhere classified; Morbid (severe) obesity due to excess calories Medications: Please continue your medications until treatment is completed or stopped by your provider. Discuss any questions related to medications with your provider. New Medications [facility], [address] [place], [place] [id number], [phone] semaglutide (Ozempic 2 mg/3 mL (0.25 mg or 0.5 mg dose) subcutaneous solution) 0.25 Milligram Subcutaneous Infusion every week for 30 Days. rotate injection sites. Refills: 1. Next Dose: Medications to Continue with No Changes These medications were not printed or sent to your pharmacy Aspirin (aspirin 81 mg oral tablet, chewable) 81 Milligram Oral Daily. Next Dose: Atorvastatin (atorvastatin 10 mg oral tablet) 1 tab(s) Oral Daily for 30 Days. Take medication in the evening.. Refills: 3. Next Dose: Azelastine Nasal (azelastine nasal 0.15% [...] orders Vital Signs Height 165 cm Weight 99.0 kg BMI 36.36 kg/m2 Blood Pressure 120 mm Hg/70 mm Hg Temperature 97.2 DegF Pulse Rate 68 bpm Respiratory Rate 15 br/min 02 Sat Mode of Delivery 98 %/Room air You can now view a summary of your hospital visit from the comfort of your home through a free online portal called [employer]os. [employer]os is a website that allows you to securely view your medical information including discharge summary, medications and follow-up visits. ??You can alsosend a secure electronic message to your doctor???s office to request appointments, renew medications or just ask a question. You can enroll at [email or web address] or register during your next office [...] primary care provider, you may find a [facility] provider by calling [facility]pile Link at [phone]. For information about the plan of care including goals and instructions for your diagnosis, please see the patient education orders section of this document. Patient Education Materials?? The content of this educational material or handout may have been modified, supplemented, or adapted from its original content and format to support your individualized medical care. Finding Your [place]ell Weight Most of the people in magazines [...] from the CDC: http://www.cdc.gov/healthyweight/assessing/bmi/adult_bmi/english_bmi_calculator/ bmi_calculator.html ?? [employer]. [address] [place] [address]. All rights reserved. This information is not intended as a substitute for professional medical care. Always follow your healthcare professional's instructions. Patient Care team information Care Team Personnel Name: Michelle Aleamn NP Position: [facility] PCO Associate Professional Member Role: PCP Address: Address: [address] [place] [address]- Care Team Related Persons Name: DOMINIQUE VILLALPANDO Address: home [address] [place] [id number]
[2023-08-28] MEDS: Lactated Ringers 1,000 ML 999 ML IV (06:25)
[2023-08-28] MEDS: Lactated Ringers 1,000 ML 100 ML IVCONT ×2 (06:25→12:29)
[2023-08-28] MEDS: Aprepitant 32 MG/4.4 ML VIAL IVPUSH (06:36)
--- NOTE | 2023-08-28 10:01 | HO.ANESPROP2 ---
[facility] Active Problems Active Problems: All Active Problems BMI 33.0-33.9,adult (Acute) BMI 36.0-36.9,adult (Acute) Adjustment disorder, unspecified (Acute) Abnormal EKG (Acute) Hypercholesterolemia (Acute) HTN (hypertension) (Acute) SPARKLE (obstructive sleep apnea) (Acute) Obesity (BMI 30-39.9) (Acute) GERD (gastroesophageal reflux disease) (Acute) Hyperlipidemia (Acute) Past Medical History Medical History Lobular carcinoma in situ (LCIS) of right breast Hiatal hernia Elevated liver enzymes Fatty liver Sleep apnea GERD (gastroesophageal reflux disease) A-fib Hyperlipidemia Family History Family history of problems with anesthesia: No Surgical History Surgical History (Updated 08/28/23 @ 06:40 by Krysta Tesfaye RN) Hx of tonsillectomy Hx of colonoscopy S/P eye surgery S/P hysterectomy S/P section History of Problems with Anesthesia: No Social History Social History Are you a primary senior care specialist to a significant other at home: No Do you presently have visiting nurse or other home services: No Patient Tobacco Use Status: Never used Tobacco Use of substances other than those prescribed or required for medical reasons: No Have you been hit, kicked, punched, or otherwise hurt by someone within the past year? If so, by whom?: No Are you DNR?: No Advance Directives: No Advance Directives Information Provided: No Advance Directives on File: No Recently lost weight without trying: No Eating poorly because of decreased appetite: No Nutrition Risks: No Nutritional Risk Patient : No : No Poor oral hygiene: Yes (crown bottom right) Meds Allergies Allergy/AdvReac Type Severity Reaction Status Date / Time environmental allergies Allergy Nasal Verified 08/28/23 06:38 congestion Active Medications: Current Medications Fentanyl (Fentanyl Citrate/Pf 100 Mcg/2 Ml Vial) 50 mcg IVPUSH Q5M PRN; Protocol PRN Reason: Pain, Severe (Pain Scale 7-10) Stop: 08/28/23 13:37 Lactated Ringer's (Lr) 1,000 mls @ 100 mls/hr IVCONT .Q10H MANISHA Last Admin: 08/28/23 06:25 Dose: 100 mls/hr Ondansetron HCl (Ondansetron Hcl 4 Mg/2 Ml Vial) 4 mg IVPUSH ONCE PRN PRN Reason: Nausea and Vomiting Stop: 08/28/23 13:37 Home Medications ?Medication ?Instructions ?Recorded ?Confirmed ?Last Taken ?Type aspirin 81 mg tablet,delayed 81 mg PO DAILY 04/09/23 08/14/23 08/13/23 History release (Adult Aspirin Regimen) atorvastatin 10 mg tablet 10 mg PO BEDTIME 04/09/23 08/14/23 Unknown History hydrochlorothiazide 25 mg tablet 25 mg PO DAILY 04/09/23 08/14/23 Unknown History Exam Height,Weight and Vital Signs: Height 5 ft 5 in Weight 88.088 kg Last Vital Signs Temp 98.4 F 08/28/23 06:37 Pulse 69 08/28/23 06:37 Resp 18 08/28/23 06:37 BP 147/69 H 08/28/23 06:37 Pulse Ox 98 08/28/23 06:37 O2 Del Method Room Air 08/28/23 06:37 Pertinent Lab Results Pertinent Lab Results: Laboratory Tests 08/22/23 08:22 Blood Type O Negative Antibody Screen NEGATIVE Airway Mallampati Class: III TM Dist: >3cm Neck ROM: Full Assessment and Plan Assessment Anesthesia Assessment: Anesthesia Plan Discussed and Chart Reviewed Final Anesthetic Review Family History of Problems with Anesthesia: No History of Problems with Anesthesia: No NPO: Yes ASA Class: III Final Preanesthetic Review: No Changes in Pt Med Stat, Meds/Allgs Chart Reviewed, Consent Obtained/Reviewed and Anes Risks/Benef Reviewed Patient Risk: Intermediate Procedure Risk: Intermediate Anesthetic Plan Anesthetic Plan: GA Disposition: Standard PACU
--- NOTE | 2023-08-28 11:12 | P.DS_ITS ---
DS: Providers Provider Date of Service: 08/29/23 Date of admission: 08/28/23 05:58 Primary care physician: Michelle Johnson CNP DS: Summary Hospital Course Hospital Course: ADMITTING DIAGNOSIS: obesity, hld, htn, rufus, af, gerd ? DISCHARGE DIAGNOSIS: same, s/p laparoscopic sleeve gastrectomy and repair diaphragmatic hernia ? PAST SURGICAL HISTORY: eye surgery, hysterectomy, cesarian section ? PROCEDURE: upper endoscopy, laparoscopic sleeve gastrectomy and repair of diaphragmatic hernia hernia ? DISCHARGE SUMMARY: ? History of Present Illness: ? The patient is a?58 year-old woman with a BMI of?36.8 kg/m2 and associated co- morbidities as described above. The patient had extensive work-up,lost?23.5 lbs preoperatively and was electively scheduled for laparoscopic, possible open sleeve gastrectomy and gastropexy. Risks and complications of the surgery were discussed with the patient in advance, particularly the possibility of , pulmonary embolism, anastomotic leak, bleeding, bowel injury, GERD, cardiac, renal or pulmonary complications. The patient understood all the risks and was in agreement with the surgical plan. ? Hospital Course: ? The patient underwent an uneventful laparoscopic sleeve gastrectomy with gastropexy and repair of diaphragmatic hernia on the day of admission. Postoperatively, the patient was transferred to the surgical floor. The patient received IV Acetaminophen and IV dilaudid for pain control. Patient was started on bariatric phase 1 diet POD #0. On postoperative day one, the patient was feeling well without nausea, vomiting, fevers, or tachycardia. The patient had some mild incisional pain and the abdomen was soft. ? On the morning of postoperative day one, the patient was continued on 1 ounce of water or ice every half hour. During the day, the patient did fairly well, having some incisional pain, but able to ambulate adequately and to tolerate liquids well. ? Since the patient is doing well, we decided that the patient was ready to be discharged. The patient was given instructions to follow-up with me next week and to call my office for any fever over 101, persistent abdominal pain, nausea, vomiting, GERD, symptoms of DVT such as calf tenderness, or leg swelling, or pulmonary embolism such as chest pain or shortness of breath. The patient was also instructed to drink 40-60 ounces of liquids per day using the 1-ounce cups. The patient had been given prescriptions for Tylenol for pain, Zofran prn for nausea, and pantoprazole and carafate previously. The patient was encouraged to ambulate and use the incentive spirometer. The patient was allowed to shower, but no baths, and encouraged to stay active at home. All of these instructions were given to the patient personally. All questions were answered and the patient understood all instructions, the instructions were also given to the patient in print. Time Attestation Total time managing care of this patient today: 25 mintues. Discharge Coordination Time (in mins): 25 Quality: Safe Use of Opioids Does Pt have an Active Cancer Diagnosis on the Problem List?: No Quality: Stroke Does the patient have a stroke diagnosis?: No Physical Exam Vital Signs: Vital Signs: Last Vital Signs Temp 98.4 F 08/28/23 06:37 Pulse 69 08/28/23 06:37 Resp 18 08/28/23 06:37 BP 147/69 H 08/28/23 06:37 Pulse Ox 98 08/28/23 06:37 O2 Del Method Room Air 08/28/23 06:37 BMI result Body Mass Index 32.3 DS: Data Data Completed and Pending Pending studies at discharge: Pending at discharge 08/28/23 10:08 Surgical [PTH] Routine Discharge Plan Discharge Anticipated Discharge Date/Time: 08/29/23 10:00 Patient Disposition: Home, Self-Care Discharge Diagnosis: s/p laparoscopic sleeve gastrectomy and diaphragmatic hernia repair Referrals: Michelle Sosa, PROCESS DEVELOPMENT TECHNICIAN [Primary Care Provider] - 1 Week Discharge Medications: Continued pantoprazole 40 mg tablet,delayed release (DR/EC) 40 mg PO DAILY Qty: 90 0RF sucralfate 100 mg/mL suspension 10 ml PO BID Qty: 600 2RF ondansetron 4 mg tablet,disintegrating 4 mg PO Q12H Qty: 20 0RF Rx Instructions: Only take one every 12 hours as needed if you have nausea tretinoin 0.025 % cream 1 appl topical MOWEFR@0900 PRN (Reason: Acne) atorvastatin 10 mg tablet 10 mg PO BEDTIME Held hydrochlorothiazide 25 mg tablet 25 mg PO DAILY Hold Instructions: Resume on 08/30/23. Check your blood pressure every morning as soon as you wake up and send it to Dr. García. Do no take the blood pressure medication if the blood pressure is below 120/70. Wait every day to hear back from Dr. García before you take the medication. aspirin [Adult Aspirin Regimen] 81 mg tablet,delayed release (DR/EC) 81 mg PO DAILY Hold Instructions: unitl discussed with dr jaiden De Guzman cholecalciferol (vitamin D3) 125 mcg (5,000 unit) tablet 125 mcg PO DAILY 90 Days Qty: 90 1RF cyanocobalamin (vitamin B-12) 500 mcg tablet 500 mcg PO DAILY 90 Days Qty: 90 0RF polyethylene glycol 3350 [Miralax] 17 gram powder in packet 17 g PO DAILY Qty: 14 0RF Rx Instructions: Mix each packet with 8oz of water, Crystal light, or Gatorade zero, or Propel and do 7 packets on 08/26/23 and another 7 packets on 08/27/23 Discharge Orders: Discharge Order (Routine); Ordered 08/29/23 Ordered By: Reilly García Activity on Discharge: No heavy lifting Stand Alone Forms: Patient Portal Discharge page Print Language: [place] Care Plan Goals: weight loss Health Concerns: obesity Plan of Treatment: No tub baths, sex or returning to work until discussed at first post op appointment. No exercise, alcohol, tobacco or illegal drug use. Continue to use incentive spirometer hourly while awake. Walk in home for 5- 10 minutes every 2 hours during the first week. Follow all instructions in the bariatric handbook and call with any questions.Discharge Instructions 1. Please call your doctor or come back to the emergency room should any new symptoms arise. 2. You will receive a courtesy call from [facility] 24-48 hours after discharge. 3. Activity: abstain from alcohol, practice limited stair climbing, no bending, no driving, no exercise, no illicit substances, no lifting, no sex, no tub bath, no work. 4. Diet: continue as discussed with Dr. García. 5. Dressing Change/Wound Care: Your incision is covered by clear bandages and guaze underneath. If the area is tender, you may apply an ice pack for short intervals (no more than 20 minutes on, followed by at least 20 minutes off). Do not apply heat. Do not use creams, lotions, or topical antibiotics unless instructed to do so by your surgeon. These can cause infection or allergic reaction. 6. Call your doctor if: - Your temperature exceeds 101.5 F - You experience excessive pain or swelling - You have an unexpected reaction to medication - You have excessive bleeding - You experience continued vomiting/nausea - Your incision begins to separate - Your incision shows signs of infection such as increased redness, swelling, excessive pain, heat, or drainage (light blood or clear fluid is normal) 7. General instructions: No lifting greater than 5 lbs for 1 week and not more than 20lbs the next 3?weeks. No driving until seen at the office in 5-7 days after surgery. If you do not move your bowels in the next 2 days, please tell?Dr. García. Please walk around your home every hour or two to prevent blood clots from forming in your legs. You do not need to wake from sleeping to walk. Please sleep in a bed or couch to prevent kinking at the hips and knees. Please take your incentive spirometer (your lung nuclear power plant engineer) home with you and use it for the next few days to prevent pneumonia. You may shower, no hot tubs, baths or swimming pools.?Please follow the post op diet instructions you are?given by Dr García? and text me daily at 5-6pm for an update.?If you have any issues or concerns or questions please communicate this to him via text.? The Celebrate shakes have all of the bariatric vitamins you need if you consume these shakes. If you are drinking other protein shakes, you will need to purchase the Celebrate multivitamins and calcium that are available in the hospital gift shop on the first floor of the main hospital.??Do not take anything without first discussing with Dr García. Please make sure you are consuming at least 40 ounces of fluids per day starting the?day AFTER your d ischarge from the hospital. Always drink 1-2 ml per minute using the 5ml?syringe. If you drink faster you may experience?bloating,?gas pain, burping, nausea or heartburn. In that case please slow down your pace and use the syringe to?understand better the?proper?pace and volume of drinking. Do not hesitate to contact the office with any questions at . The patient's medical history has been reviewed and they are considered low risk for post op DVT and therefore DVT prophylaxis is not considered necessary. Travel after surgery was reviewed. The patient has not disclosed any travel plans during the first 30 days after surgery and they have been advised that within the first 30 days after surgery any bus, plane, train or car travel over 2 hours in duration is contraindicated due to the possibility of developing blood clots from immobility. Any travel, needs to include periods of ambulation of 10 minutes in duration every 2 hours.? The patient was instructed to discuss any plans for travel during this period with their bariatric surgeon. Assessment: stable s/p laparoscopic sleeve gastrectomy and diaphragmatic hernia repair Discharge Date/Time: 08/29/23 09:15
--- NOTE | 2023-08-28 11:25 | PM.OP ---
Brief Operative Note Date of Service: 08/28/23 Pre-op diagnosis: Severe obesity with comorbidities (see below) Post-op diagnosis: same Procedure: INITIAL PATIENT BMI ON PRESENTATION AT OUR OFFICE: 36.8 kg/m2 LAST BMI BEFORE SURGERY: 32.5 kg/m2 COMORBIDITIES: sleep apnea on CPAP, atrial fibrilation, hyperlipidemia, GERD, hypertension, diaphragmatic hernia ?The patient presented to the Weight Management Program with significant obesity that was negatively impacting the patient's comorbidities as listed above.? The program is a phased program with a special focus on preoperative medical weight management to promote substantial weight loss and prepare the patients for the second phase of the program: bariatric surgery. The patient participated in an intensive weekly lifestyle ?intervention and exercise program during which the patient ?has lost between the initial office visit and the last preoperative visit 25.8lbs, or 11.67% of initial actual body weight. It was deemed appropriate for the patient to now have bariatric surgery. In light of the current Covid-19 pandemic and the well documented strong association of obesity and increased risk of worse outcomes if infected with Covid-19 (REFERENCES:https://pubmed.ncbi.nlm.nih.gov/10172130/,?https://pubmed.ncbi.nlm.nih.gov/80866600/), any delay in undergoing bariatric surgery may lead to the patient's worsening health condition and increased?risk of more severe Covid-19 disease if infected. In addition a recent?study from [facility] published in [facility] on 04/09/2021 ([id number]) found that, among patients with obesity, substantial weight loss achieved with surgery was associated with improved outcomes of COVID-19 infection. The findings suggest that obesity can be a modifiable risk factor for the severity of COVID-19 infection. In addition, the patient met the BMI-criteria for bariatric surgery based on the BMI on initial presentation. The patient should not be penalized for achieving such weight loss because ?it is not sustainable long-term without surgical intervention and it was achieved in preparation for bariatric surgery ?under my direction and based on my published research ([email or web address]).[email or web address] and?https://www.soard.org/article/[email or web address](08)29730-X/pdf) ?that a 10% preoperative weight loss improves long-term weight loss after surgery and reduces perioperative complications.? Insurance carriers such as [facility] have endorsed my recommendations ?and have included in their policies criteria to include a 10% preoperative weight loss requirement. PROCEDURE: Esophago-gastroscopy, laparoscopic repair of incarcerated diaphragmatic hernia, laparoscopic lysis of adhesions, laparoscopic sleeve gastrectomy and laparoscopic gastropexy INDICATIONS: This is a 51 year-old female who was electively scheduled for laparoscopic, possibly open sleeve gastrectomy. The risks and complications of the procedure were discussed with the patient in advance, particularly the possibility of ; pulmonary embolism; staple line leak; bleeding; GERD; cardiac, pulmonary, or renal complications; as well as long-term problems such as insufficient weight loss, vitamin deficiency, strictures, or ulcers. The patient understood all the risks, and was in agreement to proceed with surgery. DESCRIPTION OF PROCEDURE: After informed consent was obtained from the patient, the patient was given preoperative antibiotics, and was transferred to the operating room. After successful induction of general anesthesia, pneumatic compression devices were placed on both lower extremities. An upper endoscopy was performed next. The oropharynx and esophagus appeared to be within normal limits. There was a diaphragmatic hernia present of moderate size consistent with the findings of the preoperative upper GI. The stomach was entered. Then after all fluid and air were suctioned and the stomach was fully decompressed, the scope was withdrawn and secured in the mid esophagus. The patient was then prepped and draped in the usual sterile manner, and abdominal access was established at the right upper quadrant with the Renato technique. A 12 mm blunt port was inserted, and the abdomen was insufflated with CO2 to a pressure of 15 mmHg. Under direct visualization, additional ports were placed, specifically two 5 mm Versi-step ports to the left upper quadrant, and a 5 mm Versi-Step port to the right upper quadrant. 1% lidocaine plain was used to infiltrate all port sites as well as all fascia defects. Following that, the patient was placed in a steep reverse Trendelenburg position. An additional 5 mm port was placed to the right flank for the Mediflex retractor that was used to retract the left lobe of the liver. The gastro-esophageal fat pad was opened with the ultrasonic device (Thunderbeat, Olympus) and the anterior esophagus and hiatus were exposed. The angle of His was opened with the ultrasonic device the fundus of the stomach from any diaphragmatic and splenic attachments. I then opened the gastrocolic ligament between the transverse colon and the greater curvature of the stomach with the ultrasonic device to enter the lesser sac and facilitate the ligation of the short gastric vessels. I started at a mid-point along the greater curvature and using the Thunderbeat, all short gastric vessels were divided all the way to the angle of His until the left jessenia was completely dissected at its entirety. I then divided the gastro-colic ligament distally to a distance of about 3-4 cm proximal to the pylorus. There were extensive congenital adhesions between the pancreas and posterior gastric wall. Those were lysed completely with the ultrasonic device. Adhesiolysis took approximately 90 min to complete with a total operative time of 2 hours and 40 minutes.. There was an obvious significant-sized hiatal hernia. I continued dissecting along the hiatus toward the left jessenia and the angle of His. I fully mobilized the fat pad that was incarcerated in the hernia. I then continued by dissecting even further into the posterior retro-esophageal space all the way to the angle of His. I continued to mobilize the esophagus into the mediastinum circumferentially. Both vagal nerves were seen and preserved. At that point, I was able to have at least 3 to 5 cm of esophagus into the abdomen.? After I completely mobilized the esophagus from both the left and right jessenia and I had a good mobilization of the esophagus circumferentially, I closed the hernia defect with four interrupted #0 Surgidac sutures using the Endo Stitch device, three of which was placed posterior and one of which anterior to the esophagus. ? The stomach was then divided transversely with three Endo BRIDGETTE-45 purple and three BRIDGETTE-60 articulating purple loads using the EVIIVOIA stapler and loads. Every effort was made that the gastric sleeve had a tubular shape and an even caliber throughout. Once the sleeve resection was completed, the staple line of the gastric sleeve was reinforced with Hemoclips. The resected stomach was retrieved without difficulty from the Renato port. A gastropexy was then performed in order to prevent postoperative GERD and partial gastric volvulus. Several interrupted 2.0 Surgidac sutures were placed between the sleeve's staple line and the previously divided greater omentum and gastro-colic ligament using the Endo-Stitch device. ?An upper endoscopy was performed. There was no narrowing at the GE junction. The scope was easily advanced all the way to the pylorus which was clearly visualized. There was no narrowing anywhere and the sleeve's caliber was even throughout. The sleeve's staple line was inspected and there was no evidence of ischemia, bleeding or dehiscence. At that point the gastroscope was withdrawn from the patient?s mouth while we were decompressing the bowel and the stomach from any remaining air. I looked into the lesser sac to see how the sleeve was situating and it was situating well. There was no bleeding from the staple line, spleen, or short gastric vessels. The Mediflex retractor was removed, and the undersurface of the liver was inspected and there was no bleeding. The patient was placed in supine position. I closed the fascial defect of the 12 mm port site with a figure of eight #1 Polysorb suture. Then 30cc Ropivacaine plain with 10 mg of Dexamethasone were used to infiltrate the fascial closure as well as all skin incisions. A total of 7ml Zynrelef was applied in the Renato wound. At this point, the abdomen was deflated, all ports were removed under direct vision, and no bleeding was noted from any of the port sites. The skin incisions were irrigated with saline and were closed with 4-0 absorbable monofilament sutures. Steri-Strips and OpSites were used to cover all incisions. The patient was extubated and was transferred in stable condition to the recovery room for further care. I was present and performed all hope parts of the procedure. Mr. Lyman was the desk assistant. There were no residents to assist with this case. Leo García MD, PhD, FACS Surgeon: Reilly García MD Anesthesia: GETA, local and other (TAP block and 7ml Zynrelef) Was an Photography Spotter used for this Procedure?: Yes Photography Spotter: Gerber Lyman Estimated blood loss (mL): 10 IV fluids (mL): 3,000 Urine output (mL): 0 (No Mccrary to record output) Pathology: other (1) Stomach, 2) fat pad) Condition: stable Disposition: PACU
--- NOTE | 2023-08-28 11:33 | P.PNGS_ITS ---
Subjective Subjective Date of Service: 08/29/23 Interval history: Feels well. Mild incisional pain. She is tolerating phase 1 bariatric diet Physical Exam 2 Vital Signs: Vital Signs: Last Vital Signs Temp 98.2 F 08/28/23 11:13 Pulse 96 08/28/23 11:23 Resp 16 08/28/23 11:23 BP 148/85 H 08/28/23 11:23 Pulse Ox 100 08/28/23 11:23 O2 Del Method Simple Mask 08/28/23 11:23 O2 Flow Rate 4 08/28/23 11:23 BMI result Body Mass Index 32.3 GI: Inspection: Yes normal to inspection, Yes incision (clean, dry and intact) and Yes obesity Palpation (GI): Soft to palpation Extrem: Right lower extremity: normal to inspection (no calf tenderness) L eft lower extremity: normal to inspection (no calf tenderness) Objective Data Active Medications Hydromorphone HCl (Hydromorphone Hcl 0.5 Mg/0.5 Ml Syringe) 0.5 mg IVPUSH Q5M PRN; Protocol PRN Reason: Pain, Severe (Pain Scale 7-10) Stop: 08/28/23 16:02 Lactated Ringer's (Lr) 1,000 mls @ 100 mls/hr IVCONT .Q10H MANISHA Last Admin: 08/28/23 06:25 Dose: 100 mls/hr Documented By: TATYANA Ondansetron HCl (Ondansetron Hcl 4 Mg/2 Ml Vial) 4 mg IVPUSH ONCE PRN PRN Reason: Nausea and Vomiting Stop: 08/28/23 13:37 Ondansetron HCl (Ondansetron Hcl 4 Mg/2 Ml Vial) 4 mg IVPUSH ONCE PRN PRN Reason: Nausea and Vomiting Stop: 08/28/23 16:02 Labs 08/29/23 05:39 08/29/23 05:39 Procedures Date of Service Date of Service: 08/29/23 Progress Note: A&P Assessment and plan (1) Obesity (BMI 30-39.9): Status: Acute Assessment and Plan: s/p laparoscopic sleeve gastrectomy, lysis of adhesions, diaphragmatic hernia repair and gastropexy Doing well Will check am labs and if OK the patient will be discharged home (2) BMI 32.0-32.9,adult: Status: Acute (3) SPARKLE (obstructive sleep apnea): Status: Acute (4) HTN (hypertension): Status: Acute (5) Hypercholesterolemia: Status: Acute (6) GERD (gastroesophageal reflux disease): Status: Acute (7) Hyperlipidemia: Status: Acute (8) Diaphragmatic hernia: Status: Acute (9) S/P laparoscopic sleeve gastrectomy: Status: Acute (10) Status post repair of paraesophageal diaphragmatic hernia: Status: Acute Time Spent With Patient Time: Total time managing care of this patient today ____ minutes. Quality Stroke Does the patient have a stroke diagnosis?: No VTE Prior VTE?: No VTE Risk Level:: Surgical - moderate VTE Device Contraindication: N/A - Device Ordered VTE Drug Contraindication: Treatment Not Indicated
[2023-08-28 11:53] LABS: Hematocrit 38.4 % (37.0-47.0); Hemoglobin 12.8 g/dl (12.0-16.0)
[2023-08-28 12:10] LABS: Anion Gap 12 (12-20); Blood Urea Nitrogen 16 mg/dL (9-16); Carbon Dioxide 26 mmol/L (22-29); Chloride 108 mmol/L (96-108); Creatinine Clr Calc Pharmacy 78.1; Estimated Glomerular Filt Rate > 60; Glucose Random 137 mg/dL (60-115); Potassium 3.7 mmol/L (3.3-5.1); Sodium 142 mmol/L (135-145)
[2023-08-28] MEDS: Acetaminophen 1,000 MG/100 ML PIGGYBACK 16.7 MG IV ×2 (12:29→18:15)
[2023-08-28] MEDS: ceFAZolin Sodium/Dextrose,Iso 2 GM/50 ML PIGGYBACK IV (13:54)
--- NOTE | 2023-08-28 14:22 | PHA.MEDREC ---
Pharmacy Consult ? Medication Reconciliation Pharmacy has completed the medication reconciliation. Spoke to patient to confirm meds.
[2023-08-28] MEDS: Famotidine/PF 20 MG/2 ML VIAL IVPUSH (20:34)
[2023-08-29] MEDS: Lactated Ringers 1,000 ML 100 ML IVCONT ×2 (00:04→06:17)
[2023-08-29] MEDS: 0.9 % Sodium Chloride Flush 3 ML SYRINGE IVFLUSH (01:10)
[2023-08-29] MEDS: Acetaminophen 1,000 MG/100 ML PIGGYBACK 16.7 MG IV ×2 (01:26→06:15)
[2023-08-29 03:00] VITALS: BP 126/78; PULSE 65; RESP 16; TEMP 36.2; O2SAT 98
[2023-08-29 06:44] LABS: MANUAL DIFF FLAG NO
[2023-08-29 06:56] LABS: Basophils Percent Auto 0.1 % (0-2); Hematocrit 40.4 % (37.0-47.0); Hemoglobin 13.7 g/dl (12.0-16.0); Imm Gran Abs Auto 0.04 X10*3/uL (0.00-0.03); Imm Gran Pct Auto 0.4 % (0.0-0.4); Lymphocytes Absolute Auto 1.5 X10*3/uL (1.2-4.9); Lymphocytes Percent Auto 13.5 % (20-40); Mean Corpuscular HGB Conc 33.9 g/dl (31.0-35.0); Mean Corpuscular Hemoglobin 30.6 pg (27.0-33.0); Mean Corpuscular Volume 90.2 fL (80.0-98.0); Mean Platelet Volume 10.7 fL (9.4-12.3); Monocytes Absolute Auto 0.8 X10*3/uL (0.1-1.2); Monocytes Percent Auto 6.9 % (2-11); Neutrophils Absolute Auto 8.7 x10*3/uL (2.0-8.3); Neutrophils Percent Auto 79.1 % (45-73); Platelet Count 248 X10*3/uL (160-400); Red Blood Count 4.48 X10*6/uL (4.20-5.50); Red Cell Distribution Width 12.9 % (11.0-16.0)
[2023-08-29 07:16] VITALS: BP 142/67; PULSE 69; RESP 16; TEMP 36.4; O2SAT 100
[2023-08-29 07:21] LABS: Anion Gap 14 (12-20); Blood Urea Nitrogen 12 mg/dL (9-16); Calcium 9.8 mg/dL (8.4-10.2); Carbon Dioxide 25 mmol/L (22-29); Chloride 108 mmol/L (96-108); Creatinine Clr Calc Pharmacy 86.1; Estimated Glomerular Filt Rate > 60; Glucose Random 102 mg/dL (60-115); Sodium 142 mmol/L (135-145)
[2023-08-29 07:31] VITALS: O2SAT 100
[2023-08-29 07:36] LABS: Potassium 5.2 mmol/L (3.3-5.1)
[2023-08-29] MEDS: Famotidine/PF 20 MG/2 ML VIAL IVPUSH (08:14)
--- NOTE | 2023-08-29 09:03 | MHC.CM.PN ---
pt dcd home self care
--- NOTE | 2023-08-29 11:55 | HO.POSTANES ---
Post Anesthesia Evaluation Post Anesthesia Evaluation Date of Service: 08/29/23 Vital Signs: Vital Signs Temp Pulse Resp BP Pulse Ox O2 Del Method 08/29/23 07:31 100 Room Air 08/29/23 07:16 97.6 F 69 16 142/67 H 100 Room Air 08/29/23 03:00 97.2 F 65 16 126/78 98 Room Air Anesthesia: General Endotracheal-GETA Mental Status: Awake Pain Control: Satisfactory Nausea/Vomiting: None Hydration: Adequate Anesthesia-Related Issues: No Anes. Related Issues
== END 2023-08-29 09:15 | disposition home or self-care (01) | DRG 620 ==
LOC: HO.SSSA 06:01 → HO.S3 11:14
PROVIDERS: Physician Assistant Surgical; Admitting Provider Surgery; PCP Nurse Practitioner Family; Visit Provider Surgery
PROC: 0DB64Z3 Excision of Stomach, Percutaneous Endoscopic Approach, Vertical (ICD-10-PCS; CPT 43845; principal; 2023-08-28 07:30)
DX: E66.01 Morbid (severe) obesity due to excess calories (principal); K44.0 Diaphragmatic hernia with obstruction, without gangrene; Q43.3 Congenital malformations of intestinal fixation; I48.91 Unspecified atrial fibrillation; G47.33 Obstructive sleep apnea (adult) (pediatric); E78.00 Pure hypercholesterolemia, unspecified; K21.9 Gastro-esophageal reflux disease without esophagitis; K76.0 Fatty (change of) liver, not elsewhere classified; Z68.32 Body mass index [BMI] 32.0-32.9, adult; Z79.82 Long term (current) use of aspirin; Z79.899 Other long term (current) drug therapy
CPT/HCPCS: 36415; 80048; 85014; 85018; 85025; 86850; 86900; 86901; 88304; 88305; 88307; 88342; A4649; C9088; C9145; J0131; J0690; J1100; J2250; J2405; J2704; J2795; J3010; J7120

== ENCOUNTER → 2023-08-28 05:58 | Outpatient (BNV) | payer OTHER, SELFPAY | PROVIDERS: Admitting Provider Surgery; PCP Nurse Practitioner Family; Visit Provider Surgery | DX: E66.9 Obesity, unspecified (principal); Z68.32 Body mass index [BMI] 32.0-32.9, adult; K44.9 Diaphragmatic hernia without obstruction or gangrene; Z98.84 Bariatric surgery status | CPT/HCPCS: 43281; 43659; 43775; 99024; 99499 ==

== ENCOUNTER 2023-09-05 13:26 | Outpatient (AMB) | payer OTHER, SELFPAY ==
--- NOTE | 2023-09-05 13:38 | A.OFFVIS_ITS ---
VS Expanded 09/05/23 14:11 BP 137/58 L Blood Pressure Location Rt brachial Blood Pressure Position Sitting Pulse 66 Pulse Source Pulse Oximeter Temp 97.5 F Temperature Source Tympanic Pulse Oximetry 98 Oxygen Delivery Method Room Air Height 5 ft 5 in Weight 187 lb BMI 31.1 Body Fat % 38.1 Body Fat Mass 71.6 Fat Free Mass 115.4 Visceral Fat Rating 10.0 Body Water % 43.7 Body Water Mass 81.8 Muscle Mass/Score 109.6 Basal Metabolic Rate/Score 1,572 Intake Visit Reasons: (OV) PO LSG 08/28/23 Allergies environmental allergies Allergy (Verified 08/28/23 06:38) Nasal congestion HPI Comments Details: The patient is a 58-year-old female who returns to the office today in follow- up. She is status post sleeve gastrectomy with hernia repair on 08/28/2023. She is tolerating 2 celebrate 4 in 1 shakes with 2 scoops each and 1 celebrate rebuild with 1 scoop. Approximately 40-50 oz of fluids. She moved her bowels. [facility] Medical History (Updated 08/30/23 @ 00:02 by Dario Edgar) Lobular carcinoma in situ (LCIS) of right breast Hiatal hernia Elevated liver enzymes Fatty liver Sleep apnea GERD (gastroesophageal reflux disease) A-fib Hyperlipidemia Surgical History Hx of laparoscopic partial gastrectomy Hx of tonsillectomy Hx of colonoscopy S/P eye surgery S/P hysterectomy S/P section Social History Household Members: Spouse Housing: House Are you a primary home care chaplain to a significant other at home: No Do you presently have visiting nurse or other home services: No Patient Tobacco Use Status: Never used Tobacco Physical Exam Vital Signs: Last Vital Signs Temp 97.5 F 09/05/23 14:11 Pulse 66 09/05/23 14:11 BP 137/58 L 09/05/23 14:11 Pulse Ox 98 09/05/23 14:11 Oxygen Delivery Method Room Air 09/05/23 14:11 BMI result Body Mass Index 31.1 GI Inspection: Yes incision (Clean dry and intact) Assessment & Plan Assessment & Plan (1) Status post repair of paraesophageal diaphragmatic hernia: Code(s): Z98.890 - Other specified postprocedural states; Z87.19 - Personal history of other diseases of the digestive system Category: Medical Plan: POD 8 s/p LSG withj HH repair on 4by Dr García Weight loss prior to surgery was 23.5 pounds or 10.6 % TBWL. Original weight on 04/09/2023 was 221 pounds and op weight was 197.5 pounds. Be sure to text Dr García exactly 1 week after surgery your weight from your home scale so he can adjust your meal plan. Continue meal plan until f/u sergio Mayes in 2 weeks May shower, no submersion in bath for another week Continue abdominal binder with activity and exercise for the next 2 weeks. Exercise prior to surgery was Peloton bike and may resume No abdominal exercises for 6 weeks post operatively Will be emailed link to post op video for review Reminded of the pace of drinking, 2 mL per minute, 1 oz/15 min.
[2023-09-05 14:11] VITALS: BP 137/58; PULSE 66; TEMP 36.4; O2SAT 98; BMI 31.1
== END 2023-09-05 14:41 | disposition home or self-care (01) ==
PROVIDERS: PCP Nurse Practitioner Family; Visit Provider Physician Assistant Surgical
DX: Z98.890 Other specified postprocedural states (principal); Z87.19 Personal history of other diseases of the digestive system
CPT/HCPCS: 99024

== ENCOUNTER → 2023-09-05 13:26 | Outpatient (BNVA) | payer OTHER, SELFPAY | PROVIDERS: PCP Nurse Practitioner Family; Visit Provider Physician Assistant Surgical ==

== ENCOUNTER 2023-09-23 08:35 | Outpatient (AMB) | payer OTHER, SELFPAY ==
--- NOTE | 2023-09-23 08:23 | A.OFFVIS_ITS ---
VS Expanded 09/23/23 10:41 Height 5 ft 5 in Weight 179 lb 12.8 oz BMI 29.9 Intake Visit Reasons: (OV) PO LSG 08/28/23 Allergies environmental allergies Allergy (Verified 08/28/23 06:38) Nasal congestion HPI Comments Details: This?a?58?yo female who is s/p LSG with hiatal hernia repair on?08/28/2023. Presents for 1 month post op visit. Weight today is 179.8 pounds, with a BMI of 29.9. There has been a 41.2 pound weight loss,(initial weight 221 pounds) since starting the program on 04/09/2023 reflecting a 18.6 % total body weight loss and a weight loss of 17.7 pounds since surgery (operative weight 197.5 pounds) reflecting a 8.9 % TBWL since surgery. No complaints of nausea, emesis, abdominal pain or reflux. Reports infrequent but normal bowel movements every 1- 2 days and uses stool softeners regularly. She feels great. BP consistently under 120/70 and no longer taking HCTZ Present meal plan includes: 3 celebrate 4 in 1, 1 scoop, 1 scoop, 2 scoop. 8-10, 11-1, 2-4 celebrate bar, 5-8 but only having 1/3-1/2 of the bar due to feeling full. drinking 60 oz fluids daily ? Exercise routine includes: pelaton 45 min daily, 325 sonia PFSH Medical History (Updated 08/30/23 @ 00:02 by Dario Edgar) Lobular carcinoma in situ (LCIS) of right breast Hiatal hernia Elevated liver enzymes Fatty liver Sleep apnea GERD (gastroesophageal reflux disease) A-fib Hyperlipidemia Surgical History Hx of laparoscopic partial gastrectomy Hx of tonsillectomy Hx of colonoscopy S/P eye surgery S/P hysterectomy S/P section Social History Household Members: Spouse Housing: House Are you a primary director long term care to a significant other at home: No Do you presently have visiting nurse or other home services: No Patient Tobacco Use Status: Never used Tobacco Telehealth Telehealth Telehealth Platform: Telephone Location of provider rendering services: practice address Location of patient: address on file Patient Identification confirmed using: Name, : Yes Telehealth method: voice only Patient verbally consented to treatment: Yes Patient verbally consented to billing insurance company: Yes Patient informed of any privacy concerns related to visit: Yes Minutes spent on Phone/Video with Pt.: 15 Assessment & Plan Assessment & Plan (1) S/P laparoscopic sleeve gastrectomy: Code(s): Z98.84 - Bariatric surgery status Category: Surgical Plan: Will adjust meal plan to do to scoop, 1 scoop, 1 scoop or 1.5 scoop, 1.5 scoop, 1 scoop to equal for scoops total per day and attempt to decrease sense of fullness at the end of the day so she may tolerate her protein bar. She will text me with any questions or concerns about this. She is done well from a blood pressure standpoint no longer requiring hydrochlorothiazide. She will continue her Peloton bike and plans for follow-up in the office in 1 month.
[2023-09-23 10:41] VITALS: BMI 29.9
== END 2023-09-23 10:45 | disposition home or self-care (01) ==
LOC: HO.HBS 08:35
PROVIDERS: PCP Nurse Practitioner Family; Visit Provider Physician Assistant Surgical
DX: Z98.84 Bariatric surgery status (principal)
CPT/HCPCS: 99024

== ENCOUNTER → 2023-09-23 08:35 | Outpatient (BNVA) | payer OTHER, SELFPAY | PROVIDERS: PCP Nurse Practitioner Family; Visit Provider Physician Assistant Surgical ==

== ENCOUNTER 2023-10-03 11:57 | Outpatient (AMB) | payer OTHER, SELFPAY ==
--- NOTE | 2023-10-03 11:58 | MHC.OFFVISWM ---
VS Expanded 10/03/23 12:05 BP 134/82 Blood Pressure Location Rt brachial Blood Pressure Position Sitting Pulse 77 Pulse Source Pulse Oximeter Temp 97.4 F Temperature Source Tympanic Pulse Oximetry 100 Oxygen Delivery Method Room Air Height 5 ft 5 in Weight 176 lb 9.6 oz BMI 29.4 Body Fat % 33.7 Body Fat Mass 59.6 Fat Free Mass 117.0 Visceral Fat Rating 8.0 Body Water % 47.1 Body Water Mass 83.2 Muscle Mass/Score 111.2 Basal Metabolic Rate/Score 1,573 Intake Visit Reasons: ov po LSG 08/28/23 Allergies environmental allergies Allergy (Verified 10/03/23 12:07) Nasal congestion HPI Comments Details: Patient is a pleasant 58-year-old female who returns to the office today at my request in follow-up. She is status post sleeve gastrectomy on 08/30/2023. She reported feeling a lump underneath her midline incision over the last several days, tender with deep palpation. No overlying redness. No complaints of fever or chills. She has been following the meal plan as set up by Dr. García including 2 celebrate 4 in 1 shakes, 1 scoop each, 2 zone perfect bars and a meal with 4 forks protein and 4 forks vegetables PFSH Medical History (Updated 08/30/23 @ 00:02 by Dario Edgar) Lobular carcinoma in situ (LCIS) of right breast Hiatal hernia Elevated liver enzymes Fatty liver Sleep apnea GERD (gastroesophageal reflux disease) A-fib Hyperlipidemia Surgical History Hx of laparoscopic partial gastrectomy Hx of tonsillectomy Hx of colonoscopy S/P eye surgery S/P hysterectomy S/P section Social History Household Members: Spouse Housing: House Are you a primary career development counselor to a significant other at home: No Do you presently have visiting nurse or other home services: No Patient Tobacco Use Status: Never used Tobacco Physical Exam Vital Signs: Last Vital Signs Temp 97.4 F 10/03/23 12:05 Pulse 77 10/03/23 12:05 BP 134/82 10/03/23 12:05 Pulse Ox 100 10/03/23 12:05 Oxygen Delivery Method Room Air 10/03/23 12:05 BMI result Body Mass Index 29.4 Skin Other: 4-5 mm firm rounded mass just to the right of midline of the midline incision, no erythema, no tenderness to light palpation, minimal tenderness to deeper palpation. No fluctuance noted incision is clean, dry, intact. Assessment & Plan Assessment & Plan (1) S/P laparoscopic sleeve gastrectomy: Code(s): Z98.84 - Bariatric surgery status Category: Surgical Plan: I suspect that the area of tenderness is feeling the fascial suture knot. She has been losing weight and feels great otherwise. Continue current plans and return to the office as scheduled.
[2023-10-03 12:05] VITALS: BP 134/82; PULSE 77; TEMP 36.3; O2SAT 100; BMI 29.4
== END 2023-10-03 12:27 | disposition home or self-care (01) ==
PROVIDERS: PCP Nurse Practitioner Family; Visit Provider Physician Assistant Surgical
DX: Z98.84 Bariatric surgery status (principal)
CPT/HCPCS: 99024

== ENCOUNTER → 2023-10-03 11:57 | Outpatient (BNVA) | payer OTHER, SELFPAY | PROVIDERS: PCP Nurse Practitioner Family; Visit Provider Physician Assistant Surgical ==

== ENCOUNTER 2023-10-30 09:23 | Outpatient (AMB) | payer OTHER, SELFPAY ==
--- NOTE | 2023-10-30 09:25 | A.OFFVIS_ITS ---
VS Expanded 10/30/23 09:33 BP 147/71 H Blood Pressure Location Rt brachial Blood Pressure Position Sitting Pulse 64 Pulse Source Pulse Oximeter Temp 96.1 F L Temperature Source Tympanic Pulse Oximetry 100 Oxygen Delivery Method Room Air Height 5 ft 5 in Weight 169 lb BMI 28.1 Body Fat % 49.2 Body Fat Mass 51.6 Fat Free Mass 117.2 Visceral Fat Rating 7.0 Body Water % 49.2 Body Water Mass 83.2 Muscle Mass/Score 111.4 Basal Metabolic Rate/Score 1,562 Intake Visit Reasons: (OV) PO LSG 08/28/23 Allergies environmental allergies Allergy (Verified 10/30/23 09:35) Nasal congestion HPI Comments Details: This?a?58?yo female who is s/p LSG with hiatal hernia repair on?08/28/2023. Presents for 2 month post op visit. Weight today is 169 pounds, with a BMI of 28.1. There has been a 52 pound weight loss,(initial weight 221 pounds) since starting the program on 04/09/2023 reflecting a 23.5 % total body weight loss and a weight loss of 28.5 pounds since surgery (operative weight 197.5 pounds) reflecting a 14.4 % TBWL since surgery. No complaints of nausea, emesis, abdominal pain or reflux. Reports infrequent but normal bowel movements every 1- 2 days and uses stool softeners regularly. Taking bariatric MVI She feels great. BP consistently under 120/70 and no longer taking HCTZ. She was enquiring about adding in some additional food options including eggs and yogurt. Present meal plan includes: 3 celebrate 4 in 1, 1/2 scoop, 1 scoop. 8-10, 2-4 celebrate bar, 11-1, 7-9 meal 5 pm, 4 forks protein, 4 forks veg drinking 50-60 oz fluids daily ? Exercise routine includes: pelaton 45-60 min daily, 325 sonia PFSH Medical History Lobular carcinoma in situ (LCIS) of right breast Hiatal hernia Elevated liver enzymes Fatty liver Sleep apnea GERD (gastroesophageal reflux disease) A-fib Hyperlipidemia Surgical History Hx of laparoscopic partial gastrectomy Hx of tonsillectomy Hx of colonoscopy S/P eye surgery S/P hysterectomy S/P section Social History Household Members: Spouse Housing: House Are you a primary career development consultant to a significant other at home: No Do you presently have visiting nurse or other home services: No Patient Tobacco Use Status: Never used Tobacco Physical Exam Vital Signs: Last Vital Signs Temp 96.1 F L 10/30/23 09:33 Pulse 64 10/30/23 09:33 BP 147/71 H 10/30/23 09:33 Pulse Ox 100 10/30/23 09:33 Oxygen Delivery Method Room Air 10/30/23 09:33 BMI result Body Mass Index 28.1 Const General: healthy appearing and no acute distress Resp Effort & Inspection: normal respiratory effort Auscultation: clear to auscultation bilaterally Cardio Rate: regular rate Rhythm: regular rhythm GI Auscultation: normal bowel sounds Extrem General: Yes normal to inspection Assessment & Plan Assessment & Plan (1) S/P laparoscopic sleeve gastrectomy: Code(s): Z98.84 - Bariatric surgery status Category: Surgical Plan: Overall, patient is doing extremely well. She does state that sometimes finishing her entire bar in the evening it has been challenging. She may substitute the mid day bar for a [place] yogurt if she wishes. She may additionally add in eggs as a protein source. She may add cooked green beans or summer squash to her vegetable choices. She will continue her current exercise routine which she is doing daily. Return to the office in 1 month.
[2023-10-30 09:33] VITALS: BP 147/71; PULSE 64; TEMP 35.6; O2SAT 100; BMI 28.1
== END 2023-10-30 10:03 | disposition home or self-care (01) ==
PROVIDERS: PCP Nurse Practitioner Family; Visit Provider Physician Assistant Surgical
DX: Z98.84 Bariatric surgery status (principal)
CPT/HCPCS: 99024

== ENCOUNTER → 2023-10-30 09:23 | Outpatient (BNVA) | payer OTHER, SELFPAY | PROVIDERS: PCP Nurse Practitioner Family; Visit Provider Physician Assistant Surgical | DX: Z98.84 Bariatric surgery status (principal) ==

== ENCOUNTER 2023-12-25 08:25 | Outpatient (AMB) | payer OTHER, SELFPAY ==
--- NOTE | 2023-12-25 08:27 | A.OFFVIS_ITS ---
VS Expanded 12/25/23 08:35 BP 146/77 H Blood Pressure Location Rt brachial Blood Pressure Position Sitting Pulse 65 Pulse Source Pulse Oximeter Temp 96.3 F L Temperature Source Temporal Artery Scan Pulse Oximetry 100 Oxygen Delivery Method Room Air Height 5 ft 5 in Weight 152 lb 6.4 oz BMI 25.4 Body Fat % 28.1 Body Fat Mass 42.8 Fat Free Mass 109.6 Visceral Fat Rating 6.0 Body Water % 50.9 Body Water Mass 77.6 Muscle Mass/Score 104.0 Basal Metabolic Rate/Score 1,453 Intake Visit Reasons: (OV) PO LSG 08/28/23 Allergies environmental allergies Allergy (Verified 12/25/23 08:37) Nasal congestion HPI Comments Details: This?a?58?yo female who is s/p LSG with hiatal hernia repair on?08/28/2023. Presents for 4 month post op visit. Weight today is 152.4 pounds, with a BMI of 25.4. There has been a 68.6 pound weight loss,(initial weight 221 pounds) since starting the program on 04/09/2023 reflecting a 31 % total body weight loss and a weight loss of 45.1 pounds since surgery (operative weight 197.5 pounds) reflecting a 22.8 % TBWL since surgery. No complaints of nausea, emesis, abdominal pain or reflux. Reports infrequent but normal bowel movements every 1- 2 days and uses stool softeners regularly. Taking bariatric MVI She feels great. BP consistently under 120/70 and no longer taking HCTZ. She was enquiring about adding in some additional food options including eggs and yogurt. Switch to [employer] life ready to drink shake Present meal plan includes: 3 celebrate 4 in 1, 1 scoop, 1 scoop. 8-10, 2-4 celebrate bar or yogurt, 11-1, meal 5 pm, 4 forks protein, 4 forks veg sometimes 1/2 bar drinking 50-60 oz fluids daily ? Exercise routine includes: pelaton 45-60 min daily, 325 sonia [facility] Medical History Lobular carcinoma in situ (LCIS) of right breast Hiatal hernia Elevated liver enzymes Fatty liver Sleep apnea GERD (gastroesophageal reflux disease) A-fib Hyperlipidemia Surgical History Hx of laparoscopic partial gastrectomy Hx of tonsillectomy Hx of colonoscopy S/P eye surgery S/P hysterectomy S/P section Social History Household Members: Spouse Housing: House Are you a primary career law clerk to a significant other at home: No Do you presently have visiting nurse or other home services: No Patient Tobacco Use Status: Never used Tobacco Physical Exam Vital Signs: Last Vital Signs Temp 96.3 F L 12/25/23 08:35 Pulse 65 12/25/23 08:35 BP 146/77 H 12/25/23 08:35 Pulse Ox 100 12/25/23 08:35 Oxygen Delivery Method Room Air 12/25/23 08:35 BMI result Body Mass Index 25.4 Const General: healthy appearing and no acute distress Resp Effort & Inspection: normal respiratory effort Auscultation: clear to auscultation bilaterally Cardio Rate: regular rate Rhythm: regular rhythm GI Auscultation: normal bowel sounds Extrem General: Yes normal to inspection Assessment & Plan Assessment & Plan (1) S/P laparoscopic sleeve gastrectomy: Code(s): Z98.84 - Bariatric surgery status Category: Surgical Plan: Patient is doing excellent and making excellent progress. Continue with current meal plan although may substitute [employer] ready to drink shake for the celebrate 4 in 1 shake, splitting it in half. Additionally, she has been instructed that she may start weightlifting. We will have her return to the office for her six-month follow-up appointment and check labs at that time. She will text weekly and with any questions or concerns.
[2023-12-25 08:35] VITALS: BP 146/77; PULSE 65; TEMP 35.7; O2SAT 100; BMI 25.4
== END 2023-12-25 09:05 | disposition home or self-care (01) ==
PROVIDERS: PCP Nurse Practitioner Family; Visit Provider Physician Assistant Surgical
DX: E66.3 Overweight (principal); Z68.25 Body mass index [BMI] 25.0-25.9, adult; Z90.3 Acquired absence of stomach [part of]; Z98.84 Bariatric surgery status
CPT/HCPCS: 99213

== ENCOUNTER → 2023-12-25 08:25 | Outpatient (BNVA) | payer OTHER, SELFPAY | PROVIDERS: PCP Nurse Practitioner Family; Visit Provider Physician Assistant Surgical | DX: Z98.84 Bariatric surgery status (principal) ==

== ENCOUNTER 2024-02-17 07:36 | Outpatient (REF) | payer OTHER, SELFPAY ==
[2024-02-17 07:50] LABS: MANUAL DIFF FLAG NO
[2024-02-17 08:11] LABS: Basophils Percent Auto 0.4 % (0-2); Eosinophils Absolute Auto 0.1 X10*3/uL (0.0-0.4); Eosinophils Percent Auto 1.3 % (0-4); Hematocrit 40.6 % (37.0-47.0); Hemoglobin 13.4 g/dl (12.0-16.0); Imm Gran Abs Auto 0.01 X10*3/uL (0.00-0.03); Imm Gran Pct Auto 0.2 % (0.0-0.4); Lymphocytes Percent Auto 38.8 % (20-40); Mean Corpuscular Hemoglobin 31.5 pg (27.0-33.0); Mean Corpuscular Volume 95.5 fL (80.0-98.0); Mean Platelet Volume 9.7 fL (9.4-12.3); Monocytes Absolute Auto 0.4 X10*3/uL (0.1-1.2); Monocytes Percent Auto 6.7 % (2-11); Neutrophils Absolute Auto 2.7 x10*3/uL (2.0-8.3); Neutrophils Percent Auto 52.6 % (45-73); Platelet Count 267 X10*3/uL (160-400); Red Blood Count 4.25 X10*6/uL (4.20-5.50); Red Cell Distribution Width 12.7 % (11.0-16.0); White Blood Count 5.2 X10*3/uL (4.8-10.8)
[2024-02-17 08:20] LABS: Estimated Average Glucose 105 mg/dL; Hemoglobin A1C 120.6555 umol/L; Hemoglobin A1c % 5.3 % (<6.0); Total Hemoglobin (HGBA1C) 3529.5355 umol/L
[2024-02-17 09:01] LABS: Anion Gap 11 (12-20); Blood Urea Nitrogen 17 mg/dL (9-16); C Reactive Protein 0.47 mg/dL (< or = 0.50); Calcium 10.7 mg/dL (8.4-10.2); Carbon Dioxide 28 mmol/L (22-29); Chloride 108 mmol/L (96-108); Cholesterol 180 mg/dL (<200); Estimated Glomerular Filt Rate > 60; Glucose Random 89 mg/dL (60-115); HDL Cholesterol 58 mg/dL (>40); Iron 72 mcg/dL (30-160); LDL Cholesterol Calculated 106 mg/dL (<100); Percent Iron Saturation 29 % (15-50); Potassium 5.3 mmol/L (3.3-5.1); Sodium 142 mmol/L (135-145); Total Iron Binding Capacity 246 mcg/dL (228-428); Triglycerides 82 mg/dL (<150); Unsaturated Iron Binding 174 ug/dL
[2024-02-17 09:26] LABS: Folate 15.3 ng/mL (> or = 4.0); Vitamin B12 480 pg/mL (200-900)
[2024-02-17 09:27] LABS: Ferritin 166 ng/mL (10-250); TSH reflex Free T4 1.13 uIU/mL (0.32-4.0); Vitamin D 25-OH Total 49.5 ng/mL (>30)
[2024-02-17 11:17] LABS: Insulin 4 uU/mL (2-29)
[2024-02-21 02:58] LABS: Zinc 80 mcg/dL (60-130)
[2024-02-22 16:09] LABS: Vitamin B1 17 nmol/L (8-30)
[2024-02-24 18:54] LABS: Vitamin A 46 mcg/dL (38-98)
== END 2024-02-17 07:37 | disposition home or self-care (01) ==
LOC: HO.LAB 07:36
PROVIDERS: Visit Provider Physician Assistant Surgical
DX: Z98.84 Bariatric surgery status (principal); Z98.890 Other specified postprocedural states; Z87.19 Personal history of other diseases of the digestive system; E78.00 Pure hypercholesterolemia, unspecified; I10 Essential (primary) hypertension; G47.33 Obstructive sleep apnea (adult) (pediatric); Z13.1 Encounter for screening for diabetes mellitus
CPT/HCPCS: 36415; 80048; 80061; 82306; 82607; 82728; 82746; 83036; 83525; 83540; 84425; 84443; 84590; 84630; 85025; 86140

== ENCOUNTER 2024-02-23 09:21 | Outpatient (AMB) | payer OTHER, SELFPAY ==
--- NOTE | 2024-02-23 09:25 | A.OFFVIS_ITS ---
VS Expanded 02/23/24 09:42 BP 148/69 H Blood Pressure Location Rt brachial Blood Pressure Position Sitting Pulse 61 Pulse Source Pulse Oximeter Temp 97.8 F Temperature Source Temporal Artery Scan Pulse Oximetry 61 L Oxygen Delivery Method Room Air Height 5 ft 5 in Weight 144 lb 6.4 oz BMI 24.0 Body Fat % 23.1 Body Fat Mass 33.2 Fat Free Mass 110.8 Visceral Fat Rating 5.0 Body Water % 54.4 Body Water Mass 78.4 Muscle Mass/Score 105.4 Basal Metabolic Rate/Score 1,453 Intake Visit Reasons: (OV) PO LSG 08/28/23 School Psychology Professor Required: No Allergies environmental allergies Allergy (Verified 02/23/24 09:35) Nasal congestion Medication List - Last Reconciled 02/23/24 by YAYA Phan HPI Comments Details: This?a?58?yo female who is s/p LSG with hiatal hernia repair on?08/28/2023. Presents for 6 month post op visit. Weight today is 144.4 pounds, with a BMI of 24. There has been a 76.6 pound weight loss,(initial weight 221 pounds) since starting the program on 04/09/2023 reflecting a 31 % total body weight loss and a weight loss of 53.1 pounds since surgery (operative weight 197.5 pounds) reflecting a 26.8 % TBWL since surgery. No complaints of nausea, emesis, ab dominal pain or reflux. Reports infrequent but normal bowel movements every 1-2 days and uses stool softeners regularly. Taking bariatric MVI She feels great. BP consistently under 120/70 and no longer taking HCTZ. Has switched to [employer] ready to drink shake Present meal plan includes: [employer] shake26 gm 1/2 x 2. 8-10, 2-4 celebrate bar or yogurt, 11-1, meal 5 pm, 4 forks protein, 4 forks veg sometimes 1/2 bar maybe 4/7 days of the week drinking 50-60 oz fluids daily ? Exercise routine includes: pelaton 45-60 min daily, 325 sonia rowing, 200 sonia walking weight training Any post op complications: none SPARKLE: resolved DM: never HTN: resolved Hyperlipidemia: resolved GERD:?0-5 scale ??0 = no symptoms ??1 = symptoms noticeable but not bothersome 2 =symptoms bothersome but not daily ? 3 = symptoms bothersome and daily 4 = symptoms affect daily activities 5 = symptoms are incapacitating, unable to do daily activities ? How bad is the heartburn: 0 ? Heartburn while lying down: 0 ? Heartburn when standing up: 0 ? Heartburn after meals: 0 ? Does heartburn change your diet: 0 ? Does heartburn wake you up from sleep: 0 ? Do you have difficulty swallowin ? Do you have pain with swallowin ? If you take medicine for your reflux, does this affect your daily life: 0 Satisfaction with present condition - satisfied or not satisfied: [facility]on [facility] Medical History Lobular carcinoma in situ (LCIS) of right breast Hiatal hernia Elevated liver enzymes Fatty liver Sleep apnea GERD (gastroesophageal reflux disease) A-fib Hyperlipidemia Surgical History Hx of laparoscopic partial gastrectomy Hx of tonsillectomy Hx of colonoscopy S/P eye surgery S/P hysterectomy S/P section Social History Household Members: Spouse Housing: House Are you a primary vocational childcare teacher to a significant other at home: No Do you presently have visiting nurse or other home services: No Alcohol intake: never Patient Tobacco Use Status: Never used Tobacco Physical Exam Const General: cooperative and no acute distress Orientation/consciousness: patient oriented x3 Resp Effort & Inspection: normal respiratory effort Auscultation: clear to auscultation bilaterally Cardio Rate: regular rate Rhythm: regular rhythm GI Inspection: Yes normal to inspection and Yes incision (well healed) Palpation (GI): Soft to palpation and no masses Neuro General: patient oriented x3 Assessment & Plan Assessment & Plan (1) S/P laparoscopic sleeve gastrectomy: Code(s): Z98.84 - Bariatric surgery status Category: Surgical Plan: Overall, doing very well. She has achieved a healthy weight. She is satisfied with her meal plan. Just discussed changing it slightly to increase food to 6 forks of protein and 6 of vegetables. Avoiding the half bar at night. Continue exercises she is doing. We will recheck labs in approximately 1 month to further evaluate the hyperkalemia and hypercalcemia. She is not taking a multivitamin and is no longer using celebrate 4 in 1 protein powder. Encouraged to continue to communicate by text, return to the office as scheduled. Orders: Orders Basic Metabolic Panel Today E83.52 - Hypercalcemia, I10 - Essential (primary) hypertension
[2024-02-23 09:42] VITALS: BP 148/69; PULSE 61; TEMP 36.6; O2SAT 61; BMI 24.0
== END 2024-02-23 10:05 | disposition home or self-care (01) ==
PROVIDERS: PCP Nurse Practitioner Family; Visit Provider Physician Assistant Surgical
DX: Z71.3 Dietary counseling and surveillance (principal); Z90.3 Acquired absence of stomach [part of]; Z98.84 Bariatric surgery status
CPT/HCPCS: 99213

== ENCOUNTER 2024-04-15 06:51 | Outpatient (REF) | payer OTHER, SELFPAY ==
[2024-04-15 08:22] LABS: Anion Gap 12 (12-20); Blood Urea Nitrogen 21 mg/dL (9-16); Calcium 10.1 mg/dL (8.4-10.2); Carbon Dioxide 29 mmol/L (22-29); Chloride 110 mmol/L (96-108); Estimated Glomerular Filt Rate > 60; Glucose Random 91 mg/dL (60-115); Potassium 4.7 mmol/L (3.3-5.1); Sodium 146 mmol/L (135-145)
== END 2024-04-15 06:52 | disposition home or self-care (01) ==
LOC: HO.LAB 06:51
PROVIDERS: Visit Provider Physician Assistant Surgical
DX: I10 Essential (primary) hypertension (principal); E83.52 Hypercalcemia
CPT/HCPCS: 36415; 80048

== ENCOUNTER 2024-04-15 15:26 | Outpatient (AMB) | payer OTHER, SELFPAY ==
--- NOTE | 2024-04-15 14:28 | MHC.OFFVISWM ---
VS Expanded 04/15/24 14:29 Height 5 ft 4 in Weight 140 lb 8 oz BMI 24.1 Intake Visit Reasons: (TV) PO LSG 08/28/23 Superintendent Refuse Disposal Required: No Allergies environmental allergies Allergy (Verified 02/23/24 09:35) Nasal congestion Medication List - Last Reconciled 04/15/24 by YAYA Phan No Known Home Meds HPI Comments Details: This?a?58?yo female who is s/p LSG with hiatal hernia repair on?08/28/2023. Presents for 8 month post op visit. Weight today is 140.8 pounds, with a BMI of 24.1. There has been a 80.2 pound weight loss,(initial weight 221 pounds) since starting the program on 04/09/2023 reflecting a 36.2 % total body weight loss and a weight loss of 56.7 pounds since surgery (operative weight 197.5 pounds) reflecting a 28.7 % TBWL since surgery. No complaints of nausea, emesis, abdominal pain or reflux. Reports infrequent but normal bowel movements every 1-2 days and uses stool softeners regularly. Taking bariatric MVI She feels great. BP consistently under 120/70 and no longer taking HCTZ. Has switched to [employer] ready to drink shake Present meal plan includes: [employer] RTD shake26 gm 1/2 x 2. 8-10, 2-4 celebrate bar or fresh berries 02-12, meal 5 pm, 6 forks protein, 6 forks veg sometimes 1/2 bar maybe 4/7 days of the week drinking 50-60 oz fluids daily ? Exercise routine includes: pelaton 45-60 min daily, 325 sonia rowing, 200 sonia weight training PFSH Medical History Lobular carcinoma in situ (LCIS) of right breast Hiatal hernia Elevated liver enzymes Fatty liver Sleep apnea GERD (gastroesophageal reflux disease) A-fib Hyperlipidemia Surgical History Hx of laparoscopic partial gastrectomy Hx of tonsillectomy Hx of colonoscopy S/P eye surgery S/P hysterectomy S/P section Social History Household Members: Spouse Housing: House Are you a primary certified caregiver to a significant other at home: No Do you presently have visiting nurse or other home services: No Alcohol intake: never Patient Tobacco Use Status: Never used Tobacco Telehealth Telehealth Telehealth Platform: Telephone Location of provider rendering services: practice address Location of patient: address on file Patient Identification confirmed using: Name, : Yes Telehealth method: voice only Patient verbally consented to treatment: Yes Patient verbally consented to billing insurance company: Yes Patient informed of any privacy concerns related to visit: Yes Minutes spent on Phone/Video with Pt.: 15 Assessment & Plan Assessment & Plan (1) S/P laparoscopic sleeve gastrectomy: Code(s): Z98.84 - Bariatric surgery status Category: Medical Plan: Patient is doing excellent. She has maintained a healthy weight. Encouraged to continue her current meal plan and exercise plan as she has now achieved a healthy weight as above. We will plan for follow-up appointments as expected.
[2024-04-15 14:29] VITALS: BMI 24.1
--- OUTSIDE RECORDS SUMMARY | 2024-04-15 16:53 | XMS_ITS | Patient Health Record ---
Author Organization [facility] Address [address] [place] [address] Support Name Relationship Address Phone Jeff Geiger Guarantor Unknown [phone] Reason For Referral No Information Plan Of Treatment No Information Insurance Providers Payer Name Payer Address Payer Phone Subscriber Number Group Number Insured Name Patient Relationship to Insured Coverage Start Date Coverage End Date [place] [address] [place], [place] [id number] Guilherme Geiger Spouse - patient is the spouse of the insured
== END 2024-04-15 15:26 | disposition home or self-care (01) ==
LOC: HO.HBS 15:26
PROVIDERS: PCP Nurse Practitioner Family; Visit Provider Physician Assistant Surgical
DX: Z71.3 Dietary counseling and surveillance (principal); Z90.3 Acquired absence of stomach [part of]; Z98.84 Bariatric surgery status
CPT/HCPCS: 98012

== ENCOUNTER 2024-05-27 09:10 | Outpatient (AMB) | payer OTHER, SELFPAY ==
--- NOTE | 2024-05-27 07:51 | MHC.OFFVISWM ---
VS Expanded 05/27/24 07:53 Height 5 ft 4 in Weight 140 lb 6 oz BMI 24.1 Body Fat % 28.3 Body Fat Mass 39.8 Fat Free Mass 101 Visceral Fat Rating 6 Body Water % 49.2 Body Water Mass 69.2 Muscle Mass/Score 94.8 Basal Metabolic Rate/Score 1,358 Intake Visit Reasons: (TV) PO LSG 08/28/23 Satellite Instruction Facilitator Required: No Allergies environmental allergies Allergy (Verified 02/23/24 09:35) Nasal congestion Medication List - Last Reconciled 05/27/24 by YAYA Phan No Known Home Meds HPI Comments Details: This?a?59?yo female who is s/p LSG with hiatal hernia repair on?08/28/2023. Presents for 9 month post op visit. Weight today is 140.6 pounds, with a BMI of 24.1. There has been a 80.4 pound weight loss,(initial weight 221 pounds) since starting the program on 04/09/2023 reflecting a 36.2 % total body weight loss and a weight loss of 56.9 pounds since surgery (operative weight 197.5 pounds) reflecting a 28.7 % TBWL since surgery. No complaints of nausea, emesis, abdominal pain or reflux. Reports infrequent but normal bowel movements every 1-2 days and uses stool softeners regularly. Taking bariatric MVI She feels great. She was recently on a 3 week vacation and was able to maintain her weight 139-141 pounds. Using hotel gym and gym and classes while on her cruise. Present meal plan includes: [employer] RTD shake26 gm 1/2 x 2. 8-10, 2-4 celebrate bar or fresh berries 02-12, meal 5 pm, 6 forks protein, 6 forks veg sometimes 1/2 bar maybe 4/7 days of the week drinking 50-60 oz fluids daily ? Exercise routine includes: pelaton 45-60 min daily, 325 sonia rowing, 200 sonia weight training [facility] Medical History Lobular carcinoma in situ (LCIS) of right breast Hiatal hernia Elevated liver enzymes Fatty liver Sleep apnea GERD (gastroesophageal reflux disease) A-fib Hyperlipidemia Surgical History Hx of laparoscopic partial gastrectomy Hx of tonsillectomy Hx of colonoscopy S/P eye surgery S/P hysterectomy S/P section Social History Household Members: Spouse Housing: House Are you a primary caregivers homecare to a significant other at home: No Do you presently have visiting nurse or other home services: No Alcohol intake: never Patient Tobacco Use Status: Never used Tobacco Telehealth Telehealth Telehealth Platform: Telephone Location of provider rendering services: practice address Location of patient: address on file Patient Identification confirmed using: Name, : Yes Telehealth method: voice only Patient verbally consented to treatment: Yes Patient verbally consented to billing insurance company: Yes Patient informed of any privacy concerns related to visit: Yes Minutes spent on Phone/Video with Pt.: 12 Assessment & Plan Assessment & Plan (1) S/P laparoscopic sleeve gastrectomy: Code(s): Z98.84 - Bariatric surgery status Category: Surgical Plan: Patient is doing very well. She has achieved a healthy weight and healthy lifestyle. Even when she was on vacation for 3 weeks, she exercise daily and maintained a healthy weight. She is very satisfied with her meal plan. She would like to try to add oatmeal 1 or 2 times per week which she certainly can do. If she notices that her weight is going up, she will eliminate it. She states that she feels better than she did when she was 40 years old. We will have her return to the office as scheduled.
[2024-05-27 07:53] VITALS: BMI 24.1
--- OUTSIDE RECORDS SUMMARY | 2024-05-27 09:39 | XMS_ITS | Clinical Summary ---
Author Organization [facility] Address [address] [place] [address] Care Team Providers Care Lens Generator Name Role Phone Unavailable Primary Care Provider Unavailabl e Allergies No known active allergies Medications No known medications Immunizations Name Administration Dates Next Due COVID-19, mRNA (Pfizer Pre F all 2022) Monovalent, 30 mcg/0.3 ml 06/24/2020,06/04/2020 Influenza,injectable,MDCK, Prsrv Fr,Quad 019 Influenza,injectable,quad,Prsrv Fr 02/05/2018 Zoster (Shingrix) 09/15/2020,05/03/2020 influenza,seasonal,trivalent ,PF (Fluzone, Fluarix, Flulaval) 01/30/2017 Social History Tobacco Use Types Packs/Day Years Used Date Smoking Tobacco: Never Assessed Comments Unknown Sex and Gender Information Value Date Recorded Sex Assigned at Not on file Legal Sex Female 4:47 PM EDT Gender Identity Not on file Sexual Orientation Not on file Plan of Treatment Health Maintenance Due Date Last Done Comments Hepatitis C Screening 1965 Pap Smear 1981 DTaP/Tdap/Td (1 - Tdap) 1983 Hep B (1 of 3 - 19+ 3-dose series) 1984 Mammogram/Breast Imaging 2005 Pneumococcal 50+ years (1 of 1 - PCV) 2015 COVID-19 Vaccine ( - 2023-2 5 season) 2023 06/24/2020, 06/04/2020 Influenza (#1) 2023 02/04/2019, 02/05/2018, 01/30/2017 Zoster (Shingrix) Completed 09/15/2020, 05/03/2020 HPV Vaccine Aged Out No longer eligi ble based on patient's age to complete this topic Hep A Aged Out No longer eligi ble based on patient's age to complete this topic Hib Aged Out No longer eligi ble based on patient's age to complete this topic Meningococcal ACWY Aged Out No longer eligible based on patient's age to complete this topic Insurance * Guarantor: MERISSA GEIGER Account Type Relation to Patient Date of Phone Billing Address [employer] [address] [place] [id number] [facility] * Guarantor: MERISSA GEIGER Account Type Relation to Patient Date of Phone Billing Address Personal/Family [address] [place] [id number] * Guarantor: [employer] Account Type Relation to Patient Date of Phone Billing Address [employer] ATTN: ALEIDA [address]UMAN [address] [place] [id number]
--- OUTSIDE RECORDS SUMMARY | 2024-05-27 09:39 | XMS_ITS | Clinical Summary ---
Author Organization [facility] Address [address] [place] [address] Care Team Providers Care Cutter Hand Name Role Phone Unavailable Primary Care Provider Unavailabl e Social History Tobacco Use Types Packs/Day Years Used Date Smoking Tobacco: Never Assessed Comments Unknown Sex and Gender Information Value Date Recorded Sex Assigned at Not on file Legal Sex Female 5:24 AM EST Gender Identity Not on file Sexual Orientation Not on file Plan of Treatment Health Maintenance Due Date Last Done Comments Colorectal Cancer: COLONOSCO PY Screening every 10 yrs (or Modifier) 1965 Depression: Screening Annual ly using PHQ-2/9 in Adults 18 yrs or above (or HM Modifier)([facility]) 1983 Hepatitis C Virus Infection in Adolescents and Adults: Screening (or Modifier) ([facility]) 1983 SDOH Screening Reminder: Annually for all adults ([facility]) 1983 Tobacco Smoking Cessation: i n Adults excluding Women: Behavioral and Pharmacotherapy Interventions ([facility]) 1983 DTaP/Tdap/Td Vaccines ([facility]) (1 - Tdap) 1984 Cervical Cancer Screenin-65 yrs of age (or Modifier) 1986 Cervical Cancer Screening: P ap every 3 yrs pts age 21-65 1986 Cervical Cancer: Pap Screeni ng with Modifier timing ([facility]) 1986 Cervical Cancer: hrHPV alone or with cotesting Pap for Pts 30-65yrs screening every 5yrs ([facility]) 1986 Colorectal Cancer Screening 45 -75 Yrs (or HM Modifier) 2010 Colorectal Cancer: FLEXIBLE SIGMOIDOSCOPY Screening every 5 yrs 2010 Colorectal Cancer: Fecal Immunochemical Test (FIT) Annually [facility] 2010 Colorectal Cancer: High-sensitivity gFOBT Screening Annually [facility] 2010 Colorectal Cancer: Stool Cologuard Screening every 3 yrs 2010 Colorectal Cancer:CT Colonography Screening every 5 yrs 2010 Lipid Screening: Every 5 yrs for Women aged 45+ (or HM Modifier) ([facility]) 2011 Breast Cancer: Screening Annually age 50-74 yrs (or HM Modifier)([facility]) 2015 Flu Vaccination: Yearly for ages 18mos through 64 years (or Modifier)([facility]) 11/13/2023 02/04/2019 COVID-19 Vaccine Screening: Initial Series and Booster Status ([facility]) ( season) 2023 06/24/2020, 06/04/2020 Zoster/Shingles Vaccine Seri es Screening: Adults aged 18+ yrs (or HM Modifiers)([facility]) Completed 09/15/2020, 05/03/2020 Pneumococcal Vaccination Screening: Pts 0-19 & 19-64 yrs of age ([facility]) Aged Out No longer eligible based on patient's age to complete this topic Medical Devices Not on file Insurance ON LICENSE OF [facility]
--- OUTSIDE RECORDS SUMMARY | 2024-05-27 09:39 | XMS_ITS | Patient Health Record ---
Author Organization [facility] Address [address] [place] [address] Support Name Relationship Address Phone Jeff Geiger Guarantor Unknown [phone] Reason For Referral No Information Plan Of Treatment No Information Insurance Providers Payer Name Payer Address Payer Phone Subscriber Number Group Number Insured Name Patient Relationship to Insured Coverage Start Date Coverage End Date [place] [address] [place], [place] [id number] Guilherme Geiger Spouse - patient is the spouse of the insured
--- OUTSIDE RECORDS SUMMARY | 2024-05-27 09:39 | XMS_ITS | Continuity of Care Document ---
Author Organization [facility] Address [address] [place] [address]- Care Team Providers Care Accounting Director Name Role Phone Michelle Aleman NP Primary Care Physician [id number] Date(s): 01/21/24 - 05/20/24 [facility] [address] [place] [address]- Attending Physician: Yanira Bishop NP Admitting Physician: Yanira Bishop NP Referring Physician: Michelle Aleman NP Encounter Type: Pre-OutPatient One Time Allergies, Adverse Reactions, Alerts No Known Medication Allergies Substance Criticality Severity Reaction Reaction Severity Status Other Environmental Allergy Unable to assess criticality Intermittent pollen Active Immunizations Given and Recorded Vaccine Date [...] influenza virus vaccine, inactivated 12/29/08 Give n [id number] 12y+ bivalent booster vax 12/31/21 Recorded SARS-CoV-2 mRNA ([id number]-vhji-dwbrt) vax 09/11/21 Recorded SARS-CoV-2 (COVID-19) mRNA BNT-162b2 [...] Wan to Standard Admin Times 2Admin Note: [id number] VIS SHEET GIVEN 3Admin Note: 10/17/10 vis sheet given 4Admin Note: 03/01/08 vis sheet given Medications azelastine nasal 0.15% spray 2 sprays, Nares, Both, 2 times a day, PRN for allergy symptoms, # 30 mL, 2 Refills, Maintenance, 02/01/21 2:05:00 PM EDT, [place], [id number], Partial fill upon patient request if the prescription is for a schedule II opioid drug., 2 sprays Nares, Both 2 times a day,PRN:for allergy symptoms, 165, cm, 12/31/20 0:49:00 EDT, Height Start Date: 02/01/21 Status: Ordered Quantity: 30.0 Unit: mL Repeat number: 3 Home Blood Pressure Monitor See Instructions, # 1 each, Maintenance, Check BP daily. 1-2 hours after taking medication. Call if>140/90., 12/31/22 4:29:00 PM EDT, Supply, 165, cm, 12/31/22 16:04:00 EDT, Height Start Date: 12/31/22 Status: Ordered Quantity: 1.0 Unit: each Repeat number: 1 Indication: Essential (primary) hypertension hydrochlorothiazide 25 mg oral tablet 1, tablet, By Mouth, Daily, # 90 tablet, Refills 1, Maintenance, 01/02/24 6:15:00 AM EDT, Route to [facility]acy Electronically, [id number], 165, cm, 10/13/23 7:46:00 EDT, Height Start Date: 01/02/24 Status: Ordered Quantity: 90.0 Unit: tablet Repeat number: 1 MiraLax = 17 Gm, By Mouth, Daily, 0 Refills, Maintenance, 07/31/18 7:25:44 AM EDT Start Date: 07/31/18 Status: Ordered Repeat number: 1 Multivitamin By Mouth, Daily, 0 Refills, Maintenance, 03/03/14 2:13:28 PM EST Start Date: 03/03/14 Status: Ordered Repeat number: 1 pantoprazole 40 mg oral delayed release tablet 1 tablet = 40 mg, By Mouth, Daily, # 30 tablet, 0 Refills, Maintenance, 10/13/23 7:46:00 AM EDT, EC Tablet Start Date: 10/13/23 Status: Ordered Quantity: 30.0 Unit: tablet Repeat number: 1 scopolamine 1 mg/72 hr transdermal film, extended release 1 patch, Ear, Right, Every 72 hours, PRN Motion Sickness, # 4 patch, 0 Refills, Maintenance, 04/11/23 4:20:00 PM EST, [id number], Partial fill upon patient request if the prescription is for a schedule II opioid drug., 1 patch Ear, Right Every 72 hours,PRN:Motion Sickness, 165, cm, 04/11/2315:42:00 EST, Height Start Date: 04/11/23 Status: Ordered Quantity: 4.0 Unit: patch Repeat number: 1 sucralfate 1 gm/10 ml oral suspension = 10 mg, By Mouth, 2 times a day, 0 Refills, Maintenance, 10/13/23 7:45:00 AM EDT, Partial fill upon patient request if the prescription is for a schedule II opioid drug. Start Date: 10/13/23 Status: Ordered Repeat number: 1 tretinoin 0.025% topical cream 0 Refills, Maintenance, 06/06/23 8:41:00 AM EST, Partial fill upon patient request if the prescription is for a schedule II opioid drug. Start Date: 06/06/23 Status: Ordered Repeat number: 1 Problem List Condition Confirmation Course Effective Dates Status H ealth Status Informant Allergic rhinitis Confirmed Active Family history of breast cancer Confirmed Active Hyperlipidemia Confirmed Active HTN (hypertension) Confirmed Active Cerumen impaction Confirmed Active Lobular carcinoma in situ (LCIS) of right breast, 2022 Confirmed Active Dense breast tissue on mammogram Confirmed Active Migraine Confirmed Active NAFLD (nonalcoholic fatty liver disease) Confirmed Active Paroxysmal atrial fibrillation Confirmed Active Solitary Cyst of Breast right breat at 7:00 Confirmed 01/16/10 Active Vitamin D deficiency Confirmed Active Social History Social History Type Response Smoking Status Never (less than 100 in lifetime) entered on: 04/22/22 Sex Sex Representation Female (finding) Patient Care team information Care Team Personnel Name: Ash PARHAM, Michelle Briseno Position: S PCO Associate Professional Member Role: PCP Address: [address] [place] [address] Telecom: Care Team Related Persons Name: DOMINIQUE VILLALPANDO Insurance Providers Guarantor name: MERISSA VILLALPANDO Health Plan Information #: 1 Payer: [facility] Member Number: [id number] Policy Number: NA Group Number: [id number] Health Plan Information #: 2 Payer: [facility] Member Number: [id number] Policy Number: NA Group Number: NA
--- OUTSIDE RECORDS SUMMARY | 2024-05-27 09:39 | XMS_ITS | Continuity of Care Document ---
Author Organization [facility] Address [address] [place] [address]- Care Team Providers Care Manager Risk Name Role Phone Ash PUBLICATIONS DISTRIBUTION CLERK, Michelle Briseno Primary Care Physician Encounter [facility] Date(s): 04/19/24 - 05/19/24 [facility] [address] [place] [address]- Encounter Type: Triage Allergies, Adverse Reactions, Alerts No Known Medication [...] influenza virus vaccine, inactivated 12/29/08 Give n [id number] 12y+ bivalent booster vax 9/19/22 Recorded SARS-CoV-2 mRNA (tosxcwd-lqrm-odvsz) vax 09/11/21 Recorded SARS-CoV-2 (COVID-19) mRNA BNT-162b2 [...] Wan to Standard Admin Times 2Admin Note: [id number] VIS SHEET GIVEN 3Admin Note: 10/17/10 vis sheet given 4Admin Note: 03/01/08 vis sheet given Medications azelastine nasal 0.15% spray 2 sprays, Nares, Both, 2 times a day, PRN for allergy symptoms, # 30 mL, 2 Refills, Maintenance, 02/01/21 2:05:00 PM EDT, [place], [id number], Partial fill upon patient request [...] 6:15:00 AM EDT, Route to Pharmacy Electronically, [id number], 165, cm, 10/13/23 7:46:00 EDT, Height Start [...] 0 Refills, Maintenance, 04/11/23 4:20:00 PM EST, [id number], Partial fill upon patient request [...] PCO Associate Professional Member Role: PCP Address: [address] [place] [address] Telecom: Care Team Related Persons Name: DOMINIQUE VILLALPANDO Insurance Providers Guarantor name: MERISSA VILLALPANDO Health Plan Information #: 1 Payer: [facility] Member Number: NA Policy Number: NA Group Number: NA
== END 2024-05-27 09:10 | disposition home or self-care (01) ==
LOC: HO.HBS 09:10
PROVIDERS: PCP Nurse Practitioner Family; Visit Provider Physician Assistant Surgical
DX: I10 Essential (primary) hypertension (principal); Z90.3 Acquired absence of stomach [part of]; Z98.84 Bariatric surgery status
CPT/HCPCS: 98012

== ENCOUNTER → 2024-05-27 09:10 | Outpatient (BNVA) | payer OTHER, SELFPAY | PROVIDERS: PCP Nurse Practitioner Family; Visit Provider Physician Assistant Surgical | DX: I10 Essential (primary) hypertension (principal); E83.52 Hypercalcemia; Z98.84 Bariatric surgery status ==

== ENCOUNTER 2024-08-27 08:35 | Outpatient (REF) | payer OTHER, SELFPAY ==
[2024-08-27 09:19] LABS: MANUAL DIFF FLAG NO
--- OUTSIDE RECORDS SUMMARY | 2024-08-27 09:19 | XMS_ITS | Clinical Summary ---
Author Organization [facility] [employer] [facility] lin Address [address] [place] [address] Care Team Providers Care Marine Electronics Repairer Name Role Phone Unavailable Primary Care Provider [...] Adults 18 yrs or above (or HM Modifier)([facility]) 1983 Hepatitis C Virus Infection in Adolescents and Adults: Screening (or Modifier) ([facility]) 1983 SDOH Screening Reminder: Sylvie ponce for all adults ([facility]) 1983 Tobacco Smoking Cessation: i n Adults excluding Women: Behavioral and Pharmacotherapy Interventions ([facility]) 1983 DTaP/Tdap/Td Vaccines ([facility]) (1 - Tdap) 1984 Cervical Cancer Screenin 1-65 yrs of age (or Modifier) 1986 Cervical Cancer Screening: P ap every 3 yrs pts age 21-65 1986 Cervical Cancer: Pap Screeni ng with Modifier timing ([facility]) 1986 Cervical Cancer: hrHPV alone or with cotesting Pap for Pts 30-65yrs screening every 5yrs ([facility]) 1986 Colorectal Cancer Screening 45 -75 Yrs (or HM Modifier) 2010 Colorectal Cancer: FLEXIBLE SIGMOIDOSCOPY Screening every 5 yrs 2010 Colorectal Cancer: Fecal Imm unochemical Test (FIT) Annually [facility] 2010 Colorectal Cancer: High-sens itivity gFOBT Screening Annually [facility] 2010 Colorectal Cancer: Stool Col oguard Screening every 3 yrs 2010 Colorectal Cancer:CT Colonog lizz Screening every 5 yrs 2010 Lipid Screening: Every 5 yrs for Women aged 45+ (or HM Modifier) ([facility]) 2011 Breast Cancer: Screening Sylvie ually age 50-74 yrs (or HM Modifier)([facility]) 2015 Pneumococcal Vaccination Scr eening: Patients 50+ yrs of age ([facility]) (1 of 1 - PCV) 2015 COVID-19 Vaccine Screening: Initial Series and Booster Status ([facility]) (2023- season) 2023 06/24/2020, 06/04/2020 Flu Vaccination: Yearly for ages 18mos through 64 years (or Modifier)([facility]) 11/12/2024 02/04/2019 Zoster/Shingles Vaccine Seri es Screening: Adults aged 18+ yrs (or HM Modifiers)([facility]) Completed 09/15/2020, 05/03/2020 Medical Devices [place] [id number] [facility]
--- OUTSIDE RECORDS SUMMARY | 2024-08-27 09:19 | XMS_ITS | Clinical Summary ---
Author Organization [facility] Address [address] [place] [address] Care Team Providers Care Wind Projects Supervisor Name Role Phone Unavailable Primary Care Provider [...] Date of Phone Billing Address [facility] [address] [place] [phone] [facility] * Guarantor: MERISSA GEIGER Account Type Relation to Patient Date of Phone Billing Address Personal/Family [address] [place] [phone] * Guarantor: [employer] Account Type Relation to Patient Date of Phone Billing Address [facility] ATTN: ALEIDA BAUMAN [address] [place] [address]
[2024-08-27 09:40] LABS: Basophils Percent Auto 0.6 % (0-2); Eosinophils Absolute Auto 0.1 X10*3/uL (0.0-0.4); Hematocrit 40.4 % (37.0-47.0); Hemoglobin 13.4 g/dl (12.0-16.0); Imm Gran Abs Auto 0.02 X10*3/uL (0.00-0.03); Imm Gran Pct Auto 0.4 % (0.0-0.4); Lymphocytes Percent Auto 41.4 % (20-40); Mean Corpuscular HGB Conc 33.2 g/dl (31.0-35.0); Mean Corpuscular Volume 93.5 fL (80.0-98.0); Mean Platelet Volume 9.3 fL (9.4-12.3); Monocytes Absolute Auto 0.3 X10*3/uL (0.1-1.2); Monocytes Percent Auto 5.6 % (2-11); Neutrophils Absolute Auto 2.5 x10*3/uL (2.0-8.3); Platelet Count 236 X10*3/uL (160-400); Red Blood Count 4.32 X10*6/uL (4.20-5.50); Red Cell Distribution Width 12.4 % (11.0-16.0); White Blood Count 4.9 X10*3/uL (4.8-10.8)
[2024-08-27 09:48] LABS: Estimated Average Glucose 108 mg/dL; Hemoglobin A1C 126.7918 umol/L; Hemoglobin A1c % 5.4 % (<6.0); Total Hemoglobin (HGBA1C) 3557.4149 umol/L
[2024-08-27 10:31] LABS: Alanine Aminotransferase 126 U/L (0-31); Albumin Level 4.1 g/dL (3.5-5.0); Alkaline Phosphatase 123 U/L (39-117); Anion Gap 9 (12-20); Aspartate Amino Transferase 50 U/L (5-31); Bilirubin Total 0.8 mg/dL (0.0-1.0); Blood Urea Nitrogen 16 mg/dL (9-16); C Reactive Protein < 0.10 mg/dL (< or = 0.50); Calcium 9.8 mg/dL (8.4-10.2); Carbon Dioxide 30 mmol/L (22-29); Chloride 107 mmol/L (96-108); Cholesterol 177 mg/dL (<200); Estimated Glomerular Filt Rate > 60; Glucose Random 87 mg/dL (60-115); HDL Cholesterol 61 mg/dL (>40); Iron 103 mcg/dL (30-160); LDL Cholesterol Calculated 94 mg/dL (<100); Percent Iron Saturation 39 % (15-50); Potassium 4.2 mmol/L (3.3-5.1); Sodium 142 mmol/L (135-145); Total Iron Binding Capacity 261 mcg/dL (228-428); Total Protein 6.3 g/dL (6.5-8.0); Triglycerides 111 mg/dL (<150); Unsaturated Iron Binding 158 ug/dL
[2024-08-27 10:44] LABS: Ferritin 116 ng/mL (10-250); TSH reflex Free T4 1.42 uIU/mL (0.32-4.0)
[2024-08-27 10:50] LABS: Vitamin B12 545 pg/mL (200-900)
[2024-08-27 11:04] LABS: Insulin 4 uU/mL (2-29)
[2024-08-31 03:07] LABS: Zinc 74 mcg/dL (60-130)
[2024-09-01 08:03] LABS: Vitamin B1 17 nmol/L (8-30)
[2024-09-01 16:03] LABS: Vitamin A 49 mcg/dL (38-98)
== END 2024-08-27 08:36 | disposition home or self-care (01) ==
LOC: HO.LAB 08:35
PROVIDERS: PCP Nurse Practitioner Family; Visit Provider Physician Assistant Surgical
DX: I10 Essential (primary) hypertension (principal); E83.52 Hypercalcemia; Z98.84 Bariatric surgery status; E78.00 Pure hypercholesterolemia, unspecified; G47.33 Obstructive sleep apnea (adult) (pediatric); E78.5 Hyperlipidemia, unspecified; Z13.1 Encounter for screening for diabetes mellitus
CPT/HCPCS: 36415; 80053; 80061; 82306; 82607; 82728; 82746; 83036; 83525; 83540; 84425; 84443; 84590; 84630; 85025; 86140

== ENCOUNTER 2024-08-27 08:35 | Outpatient (AMB) | payer OTHER, SELFPAY ==
--- NOTE | 2024-08-27 08:36 | MHC.OFFVISWM ---
VS Expanded 08/27/24 08:45 BP 140/78 H Blood Pressure Location Rt brachial Blood Pressure Position Sitting Pulse 59 Pulse Source Pulse Oximeter Temp 96.1 F L Temperature Source Temporal Artery Scan Pulse Oximetry 100 Oxygen Delivery Method Room Air Height 5 ft 5 in Weight 143 lb 3.2 oz BMI 23.8 Body Fat % 24.7 Body Fat Mass 35.2 Fat Free Mass 107.8 Visceral Fat Rating 6.0 Body Water % 53.3 Body Water Mass 76.2 Muscle Mass/Score 102.2 Basal Metabolic Rate/Score 1,418 Intake Visit Reasons: (OV) PO LSG 08/28/23 Grading Machine Feeder Required: No Allergies environmental allergies Allergy (Verified 08/27/24 08:38) Nasal congestion Medication List - Last Reconciled 08/27/24 by YAYA Phan No Known Home Meds HPI Comments Details: This?a?59?yo female who is s/p LSG with hiatal hernia repair on?08/28/2023. Presents for 1 year post op visit. Weight today is 143.2 pounds, with a BMI of 23.8. There has been a 77.8 pound weight loss,(initial weight 221 pounds) since starting the program on 04/09/2023 reflecting a 35.2 % total body weight loss and a weight loss of 54.3 pounds since surgery (operative weight 197.5 pounds) reflecting a 27.4 % TBWL since surgery. No complaints of nausea, emesis, abdominal pain or reflux. Reports infrequent but normal bowel movements every 1-2 days and uses stool softeners regularly. Taking bariatric MVI She feels great. She is excited to be going to [place] for 3 weeks and she is now able to do so much more with her weight loss. Present meal plan includes: [employer] RTD shake26 gm 1/2 x 2. 8-10, 2-4 celebrate bar or fresh berries or bar 11-1, meal 5 pm, 6 forks protein, 6 forks veg drinking 50-60 oz fluids daily ? Exercise routine includes: 5-6 days per week (avg 350-400 sonia) [place] 45-60 min daily, 325 sonia rowing, 200 sonia treadmill weight training walking 2-3 mi daily outside Any post op complications: none SPARKLE: resolved DM: never HTN: resolved Hyperlipidemia: resolved GERD:?0-5 scale ??0 = no symptoms ??1 = symptoms noticeable but not bothersome 2 =symptoms bothersome but not daily ? 3 = symptoms bothersome and daily 4 = symptoms affect daily activities 5 = symptoms are incapacitating, unable to do daily activities ? How bad is the heartburn: 0 ? Heartburn while lying down: 0 ? Heartburn when standing up: 0 ? Heartburn after meals: 0 ? Does heartburn change your diet: 0 ? Does heartburn wake you up from sleep: 0 ? Do you have difficulty swallowin ? Do you have pain with swallowin ? If you take medicine for your reflux, does this affect your daily life: 0 Satisfaction with present condition - satisfied or not satisfied: satisfied [facility] Medical History Lobular carcinoma in situ (LCIS) of right breast Hiatal hernia Elevated liver enzymes Fatty liver Sleep apnea GERD (gastroesophageal reflux disease) A-fib Hyperlipidemia Surgical History Hx of laparoscopic partial gastrectomy Hx of tonsillectomy Hx of colonoscopy S/P eye surgery S/P hysterectomy S/P section Social History Household Members: Spouse Housing: House Are you a primary acute care clinical nurse specialist to a significant other at home: No Do you presently have visiting nurse or other home services: No Alcohol intake: never Patient Tobacco Use Status: Never used Tobacco Physical Exam Const General: cooperative and no acute distress Orientation/consciousness: patient oriented x3 Resp Effort & Inspection: normal respiratory effort Auscultation: clear to auscultation bilaterally Cardio Rate: regular rate Rhythm: regular rhythm GI Inspection: Yes normal to inspection and Yes incision (well healed) Palpation (GI): Soft to palpation and no masses Neuro General: patient oriented x3 Assessment & Plan Assessment & Plan (1) S/P laparoscopic sleeve gastrectomy: Code(s): Z98.84 - Bariatric surgery status Category: Surgical Plan: Patient is doing exceptionally well. She has maintained a healthy life and healthy lifestyle. She continues with her multivitamin. Exercising regularly. Monitoring her intake. She will continue as such and return to the office in approximately 6 months. We will check 1 year postop labs. Orders: Orders Insulin Today E78.00 - Pure hypercholesterolemia, unspecified, E78.5 - Hyperlipidemia, unspecified, G47.33 - Obstructive sleep apnea (adult) (pediatric), I10 - Essential (primary) hypertension, Z98.84 - Bariatric surgery status Complete Blood Count Auto Diff Today E78.00 - Pure hypercholesterolemia, unspecified, E78.5 - Hyperlipidemia, unspecified, G47.33 - Obstructive sleep apnea (adult) (pediatric), I10 - Essential (primary) hypertension, Z98.84 - Bariatric surgery status IRON PROFILE Today E78.00 - Pure hypercholesterolemia, unspecified, E78.5 - Hyperlipidemia, unspecified, G47.33 - Obstructive sleep apnea (adult) (pediatric), I10 - Essential (primary) hypertension, Z98.84 - Bariatric surgery status Comprehensive Met. Panel Today E78.00 - Pure hypercholesterolemia, unspecified, E78.5 - Hyperlipidemia, unspecified, G47.33 - Obstructive sleep apnea (adult) (pediatric), I10 - Essential (primary) hypertension, Z98.84 - Bariatric surgery status Zinc Today E78.00 - Pure hypercholesterolemia, unspecified, E78.5 - Hyperlipidemia, unspecified, G47.33 - Obstructive sleep apnea (adult) (pediatric), I10 - Essential (primary) hypertension, Z98.84 - Bariatric surgery status C Reactive Protein Today E78.00 - Pure hypercholesterolemia, unspecified, E78.5 - Hyperlipidemia, unspecified, G47.33 - Obstructive sleep apnea (adult) (pediatric), I10 - Essential (primary) hypertension, Z98.84 - Bariatric surgery status Vitamin B1 Today E78.00 - Pure hypercholesterolemia, unspecified, E78.5 - Hyperlipidemia, unspecified, G47.33 - Obstructive sleep apnea (adult) (pediatric), I10 - Essential (primary) hypertension, Z98.84 - Bariatric surgery status Vitamin A Today E78.00 - Pure hypercholesterolemia, unspecified, E78.5 - Hyperlipidemia, unspecified, G47.33 - Obstructive sleep apnea (adult) (pediatric), I10 - Essential (primary) hypertension, Z98.84 - Bariatric surgery status TSH reflex Free T4 Today E78.00 - Pure hypercholesterolemia, unspecified, E78.5 - Hyperlipidemia, unspecified, G47.33 - Obstructive sleep apnea (adult) (pediatric), I10 - Essential (primary) hypertension, Z98.84 - Bariatric surgery status Hemoglobin A1c Today E78.00 - Pure hypercholesterolemia, unspecified, E78.5 - Hyperlipidemia, unspecified, G47.33 - Obstructive sleep apnea (adult) (pediatric), I10 - Essential (primary) hypertension, Z98.84 - Bariatric surgery status Lipid Panel Today E78.00 - Pure hypercholesterolemia, unspecified, E78.5 - Hyperlipidemia, unspecified, G47.33 - Obstructive sleep apnea (adult) (pediatric), I10 - Essential (primary) hypertension, Z98.84 - Bariatric surgery status Vitamin B12 and Folate Today E78.00 - Pure hypercholesterolemia, unspecified, E78.5 - Hyperlipidemia, unspecified, G47.33 - Obstructive sleep apnea (adult) (pediatric), I10 - Essential (primary) hypertension, Z98.84 - Bariatric surgery status Ferritin Today E78.00 - Pure hypercholesterolemia, unspecified, E78.5 - Hyperlipidemia, unspecified, G47.33 - Obstructive sleep apnea (adult) (pediatric), I10 - Essential (primary) hypertension, Z98.84 - Bariatric surgery status Vitamin D 25-OH Total Today E78.00 - Pure hypercholesterolemia, unspecified, E78.5 - Hyperlipidemia, unspecified, G47.33 - Obstructive sleep apnea (adult) (pediatric), I10 - Essential (primary) hypertension, Z98.84 - Bariatric surgery status
[2024-08-27 08:45] VITALS: BP 140/78; PULSE 59; TEMP 35.6; O2SAT 100; BMI 23.8
--- OUTSIDE RECORDS SUMMARY | 2024-08-27 08:47 | XMS_ITS | Patient Health Record ---
Author Organization [facility] Address [address] [place] [address] Support Name Relationship Address Phone Jeff Geiger Guarantor Unknown [phone] Reason For Referral No Information Plan Of Treatment No Information Insurance Providers Payer Name Payer Address Payer Phone Subscriber Number Group Number Insured Name Patient Relationship to Insured Coverage Start Date Coverage End Date [place] [address] [place], [place] [id number] Guilherme Geiger Spouse - patient is the spouse of the insured
--- OUTSIDE RECORDS SUMMARY | 2024-08-27 08:47 | XMS_ITS | Clinical Summary ---
Author Organization [facility] [employer] [facility] lin Address [address] [place] [address] Care Team Providers Care Farm Equipment Engine Mechanic Name Role Phone Unavailable Primary Care Provider [...] Adults 18 yrs or above (or HM Modifier)([facility]) 1983 Hepatitis C Virus Infection in Adolescents and Adults: Screening (or Modifier) ([facility]) 1983 SDOH Screening Reminder: Sylvie ponce for all adults ([facility]) 1983 Tobacco Smoking Cessation: i n Adults excluding Women: Behavioral and Pharmacotherapy Interventions ([facility]) 1983 DTaP/Tdap/Td Vaccines ([facility]) (1 - Tdap) 1984 Cervical Cancer Screenin 1-65 yrs of age (or Modifier) 1986 Cervical Cancer Screening: P ap every 3 yrs pts age 21-65 1986 Cervical Cancer: Pap Screeni ng with Modifier timing ([facility]) 1986 Cervical Cancer: hrHPV alone or with cotesting Pap for Pts 30-65yrs screening every 5yrs ([facility]) 1986 Colorectal Cancer Screening 45 -75 Yrs (or HM Modifier) 2010 Colorectal Cancer: FLEXIBLE SIGMOIDOSCOPY Screening every 5 yrs 2010 Colorectal Cancer: Fecal Imm unochemical Test (FIT) Annually [facility] 2010 Colorectal Cancer: High-sens itivity gFOBT Screening Annually [facility] 2010 Colorectal Cancer: Stool Col oguard Screening every 3 yrs 2010 Colorectal Cancer:CT Colonog lizz Screening every 5 yrs 2010 Lipid Screening: Every 5 yrs for Women aged 45+ (or HM Modifier) ([facility]) 2011 Breast Cancer: Screening Sylvie ually age 50-74 yrs (or HM Modifier)([facility]) 2015 Pneumococcal Vaccination Scr eening: Patients 50+ yrs of age ([facility]) (1 of 1 - PCV) 2015 COVID-19 Vaccine Screening: Initial Series and Booster Status ([facility]) (2023- season) 2023 06/24/2020, 06/04/2020 Flu Vaccination: Yearly for ages 18mos through 64 years (or Modifier)([facility]) 11/12/2024 02/04/2019 Zoster/Shingles Vaccine Seri es Screening: Adults aged 18+ yrs (or HM Modifiers)([facility]) Completed 09/15/2020, 05/03/2020 Medical Devices [place] [id number] [facility]
--- OUTSIDE RECORDS SUMMARY | 2024-08-27 08:47 | XMS_ITS | Clinical Summary ---
Author Organization [facility] Address [address] [place] [address] Care Team Providers Care Harbor Police Launch Commander Name Role Phone Unavailable Primary Care Provider [...] Date of Phone Billing Address [facility] [address] [place] [id number] [facility] * Guarantor: MERISSA GEIGER Account Type Relation to Patient Date of Phone Billing Address Personal/Family [address] [place] [id number] * Guarantor: [employer] Account Type Relation to Patient Date of Phone Billing Address [facility] ATTN: ALEIDA BAUMAN [address] [place] [address]
== END 2024-08-27 08:56 | disposition home or self-care (01) ==
PROVIDERS: PCP Nurse Practitioner Family; Visit Provider Physician Assistant Surgical
DX: Z71.3 Dietary counseling and surveillance (principal); Z90.3 Acquired absence of stomach [part of]; Z98.84 Bariatric surgery status
CPT/HCPCS: 99213